=== PATIENT | female | born 1950 ===

== ENCOUNTER 2025-02-12 03:56 | Inpatient (IN) | payer MEDICARE, MEDICAID, SELFPAY ==
--- NOTE | ~2025-02-12 | XR_ITS ---
EXAMINATION: XR CHEST CLINICAL INFORMATION: SOB COMPARISON: None available. TECHNIQUE: Frontal view of the chest was obtained. FINDINGS: The lungs are well-expanded and clear of acute pneumonic process. There is dependent bibasilar atelectasis. Heart size and pulmonary vascularity is normal. No gross bony abnormality seen. XR/XR chest 1V IMPRESSION: There is bibasilar atelectasis. No acute process seen. Electronically signed by: Noah Greene MD 02/17/2025 09:34 AM EDT RP
[2025-02-12 04:18] VITALS: BMI 28.5
[2025-02-12 04:24] VITALS: BP 197/93; PULSE 87; RESP 16; TEMP 36.6; O2SAT 92
[2025-02-12] MEDS: OLANZapine 5 MG TABLET PO ×2 (06:13→21:42)
[2025-02-12] MEDS: Acetaminophen 325 MG TABLET 650 MG PO (06:14)
--- NOTE | 2025-02-12 06:46 | PC.NURSE ---
Addendum entered by Jerry Maddox RN 02/12/25 06:47: Patient is on 2 liter of oxygen secondary to COPD. Patient uses intermittently in her own terms. Original Note: Admission Note Monae De La Fuente, a 74 -year-old woman, was presented to [facility] ED from [facility] with chief complaint of making suicidal statement with plan to cut herself with razor blade triggered by her chronic headache and fear of having AIDS as she claims to be sexually active and plans to remain active until she reaches 81 years.? The patient has a medical and psychiatric history of hypothyroidism, COPD, GERD (gastroesophageal reflux disorder), HTN (hypertension), Breast Cancer , Schizoaffective disorder bipolar type, anxiety D/O, and Dementia. Monae arrived at our unit in a stretcher at 0410 on 02/12/25, on CV, with an admitting diagnosis of? schizoaffective disorder, bipolar type. She is full-code. The patient is alert and oriented to self only currently but follows direction well. The skin check revealed bilateral abdominal rash with minor slit. Med rec completed/pending provider?s approval, patient takes her meds whole with water willingly. Patients use walkers for very short distances but use wheelchairs to move around the unit. The patient needs assistance with ADL support but unable to assess the extent of support. Labs are unremarkable. UA negative. Utox negative. Serology negative. HIV screen negative. Monae refused to sign the treatment plan, safety tool, belonging sheet, and release paper. Contraband searched. Monae is on a 5 minute safety check.
[2025-02-12 08:23] LABS: Estimated Average Glucose 105 mg/dL; Hemoglobin A1C 135.0004 umol/L; Hemoglobin A1c % 5.3 % (<6.0); Total Hemoglobin (HGBA1C) 3979.3862 umol/L
[2025-02-12 08:30] VITALS: BP 152/80; PULSE 86; RESP 16; TEMP 36.4; O2SAT 94
[2025-02-12 08:34] LABS: Cholesterol 169 mg/dL (<200); HDL Cholesterol 56 mg/dL (>40); LDL Cholesterol Calculated 90 mg/dL (<100); Triglycerides 116 mg/dL (<150)
[2025-02-12 08:49] LABS: TSH reflex Free T4 5.11 uIU/mL (0.32-4.0)
[2025-02-12 09:08] LABS: Alanine Aminotransferase 17 U/L (0-31); Albumin Level 4.4 g/dL (3.5-5.0); Alkaline Phosphatase 77 U/L (39-117); Anion Gap 15 (12-20); Aspartate Amino Transferase 22 U/L (5-31); Bilirubin Total 0.3 mg/dL (0.0-1.0); Blood Urea Nitrogen 11 mg/dL (9-16); Calcium 10.4 mg/dL (8.4-10.2); Carbon Dioxide 25 mmol/L (22-29); Chloride 101 mmol/L (96-108); Creatinine Clr Calc Pharmacy 69.2; Estimated Glomerular Filt Rate > 60; Glucose Random 135 mg/dL (60-115); Potassium 4.2 mmol/L (3.3-5.1); Sodium 137 mmol/L (135-145); Total Protein 7.2 g/dL (6.5-8.0)
[2025-02-12 09:19] VITALS: BMI 28.5
--- NOTE | 2025-02-12 09:28 | P.HPPS_ITS ---
HPI Date of Service: 02/12/25 Chief Complaint: Schizoaffective disorder Sources of Information: patient interviewed, chart reviewed and crisis/core team assessment reviewed HPI Subjective Notes: Payan Warning and Conditional Voluntary Narrative: Ms. De La Fuente is a 74 year-old woman who was brought from [facility] to [facility] due to increased suicidal ideation with plan to cut caption writer with a razor. In the ED, pt had reported triggers for suicidal thought migraine pain and fear that she may have HIV. She had HIV test while in the ED which was non reactive. She has hx of self harm via cutting her wrist. Pertinent labs completed in the ED include CBC without leukocytosis, CMP without electrolytes abnormalities, BUN 12, Cr 0.62. UA negative for UTI. Utox was negative. Head CT from 05/2024 showed microvascular changes and atrophy. On the unit, pt presents with multiple somatic concerns. She reports she has migraines and this causes her to feel suicidal. She also reports she does hear sometimes a voice of a male that tells her to cut her wrist. She Also says she has these thoughts when she gets overwhelmed. She states she is allergic to Tylenol that she feels this medication causes her brain to swell and then she becomes suicidal. She reports she has had suicidal thoughts on and off for several years. She does report most of these thoughts are related to pain or other somatic complaints. She also reports at times she sees visions of comercials in her head. She reported suicidal thoughts but denied any plan or intent to harm herself. She reported poor sleep. This caption writer saw scars of multiple cuts to her wrist on the left side. No other parts of her body with cutting. Past Psychiatric History: Inpt: some in the past but pt reports she does not remember where or when. OP: she reports is PCP prescribing psych medications, Korey Sweeney Past medication trials: buspar, lithium, depakote, navane, seroquel, olanzapine, cymbalta. Hx of multiple cuts to left wrist. Medical Evaluation Reviewed: Yes [facility] Medical History (Updated 02/13/25 @ 16:19 by Alexus Hayes NP) Hypothyroidism COPD (chronic obstructive pulmonary disease) Dementia Breast cancer Family History: denies Social History: Pt reports she has 5 children, all live out of state and she hears from them once in a while. She reports she has 4 sisters and she is close to one of them. She reports she was born in [place], [place]. 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 Substance History: She reports she had hx of alcohol use but quit 20 years ago Trauma History: denies Diagnostics Vital Signs (24Hr): Vital Signs - 24 hr 02/12/25 04:24 Temperature 97.8 F Pulse Rate 87 Respiratory Rate 16 Blood Pressure 197/93 H Pulse Oximetry 92 Oxygen Delivery Method Nasal Cannula BMI result Body Mass Index 28.5 Labs 02/12/25 08:00 Labs: Laboratory Results - last 48 hr 02/12/25 08:00 Sodium 137 Potassium 4.2 Chloride 101 Carbon Dioxide 25 Anion Gap 15 BUN 11 Creatinine 0.72 Estim Creat Clear Calc 69.2 Estimated GFR > 60 Random Glucose 135 H Estimat Average Glucose 105 Hemoglobin A1c % 5.3 Calcium 10.4 H Total Bilirubin 0.3 AST 22 ALT 17 Alkaline Phosphatase 77 Total Protein 7.2 Albumin 4.4 Triglycerides 116 Cholesterol 169 LDL Cholesterol, Calc 90 HDL Cholesterol 56 TSH 5.11 H Meds/Allergies Meds Home Medications ?Medication ?Instructions ?Recorded ?Confirmed ?Type albuterol sulfate 90 mcg/actuation 2 puff inhalation Q4H PRN 02/12/25 02/12/25 History aerosol inhaler (Ventolin HFA) Shortness Of Breath Or Wheezing atorvastatin 40 mg tablet 40 mg PO DAILY 02/12/25 02/12/25 History buspirone 15 mg tablet 15 mg PO TID 02/12/25 02/12/25 History celecoxib 100 mg capsule 100 mg PO BID 02/12/25 02/12/25 History divalproex 500 mg tablet,delayed 500 mg PO BID 02/12/25 02/12/25 History release escitalopram oxalate 10 mg tablet 10 mg PO DAILY 02/12/25 02/12/25 History fluticasone propionate 50 2 spray intranasal BID 02/12/25 02/12/25 History mcg/actuation nasal spray,suspension gabapentin 300 mg capsule 300 mg PO TID 02/12/25 02/12/25 History letrozole 2.5 mg tablet 2.5 mg PO DAILY 02/12/25 02/12/25 History levothyroxine 50 mcg tablet 50 mcg PO DAILY 02/12/25 02/12/25 History mirabegron 25 mg tablet,extended 25 mg PO DAILY 02/12/25 02/12/25 History release 24 hr (Myrbetriq) olanzapine 10 mg tablet 10 mg PO BEDTIME 02/12/25 02/12/25 History pantoprazole 40 mg tablet,delayed 40 mg PO DAILY 02/12/25 02/12/25 History release pramipexole 0.125 mg tablet 0.125 mg PO DAILY 02/12/25 02/12/25 History quetiapine 25 mg tablet 50 mg PO TID PRN Anxiety 02/12/25 02/12/25 History rivaroxaban 10 mg tablet (Xarelto) 10 mg PO DAILY 02/12/25 02/12/25 History trazodone 100 mg tablet 200 mg PO BEDTIME PRN Insomnia 02/12/25 02/12/25 History Allergies Allergies Allergy/AdvReac Type Severity Reaction Status Date / Time morphine AdvReac Severe Rash Verified 02/12/25 04:00 codeine AdvReac Intermediate Rash Verified 02/12/25 04:01 theophylline AdvReac Intermediate Palpitation Verified 02/12/25 04:01 s thiothixene AdvReac Intermediate Unknown Verified 02/12/25 04:00 propoxyphene AdvReac Unknown Unknown Verified 02/12/25 03:59 Mental Status Exam Mental Status Exam Narrative: Appearance: wearing hospital gown, fair hygiene, in NAD Behavior: cooperative, friendly Psychomotor: resting tremors, more pronounced on right side Speech: clear, normal rate/rhythm/volume, spontaneous TP: somewhat disorganized at times TC: focused on pain and this causing suicidal thought Mood: anxious Affect: calmer, but somatically preoccupied SI: passive HI: none VH/AH: appears internally preoccupied Delusions: she is not fully forthcoming with extend of delusional content, but suspect a combination of somatic delusions triggering changes in mood and suicidality. Insight/judgment: impaired x 2. Memory/cog: alert, oriented to place, month, year and situation. Assessment & Plan Assessment & Plan (1) Schizoaffective disorder, bipolar type: Status: Acute Code(s): F25.0 - Schizoaffective disorder, bipolar type Plan Ms. De La Fuente is a 74 year-old woman who self presented to [facility] reporting increase depression and suicidal ideation with plan to cut her wrist with a razor. She reported suicidal thoughts in context of having pain related to migraine and fear that she may have HIV due to exposure more than 10 years ago. HIV test was non reactive. On the unit, pt presents somatically preoccupied with some degree of delusions such as when she reports feeling that tylenol is causing swelling of her brain which she then says turns into suicidal thoughts and urges to cut her wrist. She also reports hearing some voices and seeing images in white and black and sometimes commercials in her mind. She displays an asydentic thinking in that causal link between ideas is not related or is less logically connected. On the surface, may not seem as overt delusional process given that most of her concerns related to suicidal thoughts are somatic but as one follows her train of thought is more clear the disconnect. Pending collateral information from sister and outpatient providers. She does have resting tremor, suspect more susceptible to movement disorder side effects, especially with high potency antipsychotics. She is currently on olanzapine 10mg po qhs. We did discuss trial of rexulti 1mg po daily which patient was in agreement to try. We also discussed adding low dose diazepam 2mg po TID. PLAN 1. Admit to S1, CV, 15 minutes checks for safety 2. schedule diazepam 2mg po TID 3. may consider rexulti 1mg po qhs, lower trazodone to 100mg po qhs 4. obtain collateral information 5. aftercare planning. Patient educated on: diagnosis and medication risk/benefits Reason for continued inpatient stay Substantial Risk for: harm to self and inability to function Statement Statement: I have reviewed the history and physical and performed a pertinent examination on my patient. No changes have occurred unless specified. If the History and Physical was not performed prior to admission, the Hospitalist's service will be consulted for completing the admission physical. Time Spent With Patient Time: Total time managing care of this patient today ____ minutes.
--- NOTE | 2025-02-12 09:29 | HO.PM.IMCN ---
History of Present Illness Data of Consult Service Date: 02/12/25 Primary Care Provider: Unknown Physician HPI Reason for consult: Admission H&P Pt is a 74-year-old female with a PMH significant for COPD on 2L home O2 prn, hx of breast cancer, HLD, hypothyroidism, GERD, chronic back pain, dementia, anxiety, and schizoaffective disorder bipolar type?who is admitted to [facility] for increasing depression and anxiety with SI. Pt initially was brought to [facility] ED from [facility] after making suicidal statements with a plan to cut herself with a razor blade. Pt has particularly been preoccupied with fearing that she had AIDS as she has been sexually active. HIV testing in the ED negative. Medical consult for admission H&P. ?Pt seen and evaluated in her room where she appears anxious and feeling cold. Pt is noted to be laying on top of her blankets and apparently needs assistance in covering herself up. Pt has multiple complaints, including SOB, difficulty breathing, chronic back pain not alleviated by Celebrex, spastic bladder, and overall feeling uncomfortable. Overall pt appears preoccupied with her medications and claims she should be taking oxybutynin for her spastic bladder, but currently Of note, pt does appear much more calm after being covered up with blankets once interview and exam completed. Labs reviewed, significant for TSH elevated at 5.11. Initial vitals significant for hypertension of 197/93, satting at 92% on 2 L NC. Review of Systems Review of Systems: Negative except for that which is stated in the HPI. [facility] Medical History (Updated 02/12/25 @ 11:53 by JOAQUIM Tubbs) Hypothyroidism COPD (chronic obstructive pulmonary disease) Dementia Breast cancer Social History Household Members: None Housing: [facility] Do you presently have visiting nurse or other home services: No Comment: 5 minute checks Patient Tobacco Use Status: Former Tobacco user Tobacco use type: Cigarette Smoked in Last 30 Days: No Use of substances other than those prescribed or required for medical reasons: No Currently Displaying Signs/Symptoms of Drug Intoxication Withdrawal: No Have you been hit, kicked, punched, or otherwise hurt by someone within the past year? If so, by whom?: No Do you feel safe in your current relationship?: No Current Relationship Advance Directives: No Advance Directives Information Provided: Yes Do you have thoughts of harming others: None Do you have a plan to hurt others: No Plan Recently lost weight without trying: Unsure Nutrition Risks: No Nutritional Risk Patient : No : No Meds Allergies Allergy/AdvReac Type Severity Reaction Status Date / Time morphine AdvReac Severe Rash Verified 02/12/25 04:00 codeine AdvReac Intermediate Rash Verified 02/12/25 04:01 theophylline AdvReac Intermediate Palpitation Verified 02/12/25 04:01 s thiothixene AdvReac Intermediate Unknown Verified 02/12/25 04:00 propoxyphene AdvReac Unknown Unknown Verified 02/12/25 03:59 Active Medications: Current Medications Acetaminophen (Acetaminophen 325 Mg Tablet) 650 mg PO Q6H PRN PRN Reason: Headache/Pain, Scale 1-10 Last Admin: 02/12/25 06:14 Dose: 650 mg Al Hydroxide/Mg Hydroxide (Magnesium Hydrox/Alum Hydrox 30 Ml Oral.Susp) 30 ml PO Q6H PRN PRN Reason: Heartburn/Nausea Magnesium Hydroxide (Milk Of Magnesia 30 Ml Oral.Susp) 30 ml PO DAILY PRN PRN Reason: Constipation Nicotine (Nicotine 21 Mg Patch.Td24) 21 mg TRANSDERMA DAILY PRN PRN Reason: smoking cessation Nicotine Polacrilex (Nicotine Polacrilex 2 Mg Gum) 4 mg BUCCAL Q2H PRN PRN Reason: Nicotine Cravings Olanzapine (Olanzapine 5 Mg Tablet) 5 mg PO TID PRN PRN Reason: agitation Last Admin: 02/12/25 06:13 Dose: 5 mg Trazodone HCl (Trazodone Hcl 50 Mg Tablet) 50 mg PO BEDTIME MRX1 PRN PRN Reason: Insomnia Home Medications ?Medication ?Instructions ?Recorded ?Confirmed ?Last Taken ?Type albuterol sulfate 90 mcg/actuation 2 puff inhalation Q4H PRN 02/12/25 02/12/25 Unknown History aerosol inhaler (Ventolin HFA) Shortness Of Breath Or Wheezing atorvastatin 40 mg tablet 40 mg PO DAILY 02/12/25 02/12/25 Unknown History buspirone 15 mg tablet 15 mg PO TID 02/12/25 02/12/25 Unknown History celecoxib 100 mg capsule 100 mg PO BID 02/12/25 02/12/25 Unknown History divalproex 500 mg tablet,delayed 500 mg PO BID 02/12/25 02/12/25 Unknown History release escitalopram oxalate 10 mg tablet 10 mg PO DAILY 02/12/25 02/12/25 Unknown History fluticasone propionate 50 2 spray intranasal BID 02/12/25 02/12/25 Unknown History mcg/actuation nasal spray,suspension gabapentin 300 mg capsule 300 mg PO TID 02/12/25 02/12/25 Unknown History letrozole 2.5 mg tablet 2.5 mg PO DAILY 02/12/25 02/12/25 Unknown History levothyroxine 50 mcg tablet 50 mcg PO DAILY 02/12/25 02/12/25 Unknown History mirabegron 25 mg tablet,extended 25 mg PO DAILY 02/12/25 02/12/25 Unknown History release 24 hr (Myrbetriq) olanzapine 10 mg tablet 10 mg PO BEDTIME 02/12/25 02/12/25 Unknown History pantoprazole 40 mg tablet,delayed 40 mg PO DAILY 02/12/25 02/12/25 Unknown History release pramipexole 0.125 mg tablet 0.125 mg PO DAILY 02/12/25 02/12/25 Unknown History quetiapine 25 mg tablet 50 mg PO TID PRN Anxiety 02/12/25 02/12/25 Unknown History rivaroxaban 10 mg tablet (Xarelto) 10 mg PO DAILY 02/12/25 02/12/25 Unknown History trazodone 100 mg tablet 200 mg PO BEDTIME PRN Insomnia 02/12/25 02/12/25 Unknown History Physical Exam Vital Signs and Narrative: Vital Signs: Last Vital Signs Temp 97.8 F 02/12/25 04:24 Pulse 87 02/12/25 04:24 Resp 16 02/12/25 04:24 BP 197/93 H 02/12/25 04:24 Pulse Ox 92 02/12/25 04:24 O2 Del Method Nasal Cannula 02/12/25 04:24 BMI result Body Mass Index 28.5 General: AOx3, no acute distress Resp: CTA bilaterally CVS: S1, S2, RRR GI: +BS, NT, no distention Skin: Warm, dry Neuro: Cranial nerves II-XII grossly intact bilaterally. Motor grossly intact bilaterally Extremities: No edema Psych: Anxious though cooperative Results Labs 02/12/25 08:00 Labs: Laboratory Results - last 24 hr 02/12/25 08:00 Anion Gap 15 Estim Creat Clear Calc 69.2 Estimated GFR > 60 Random Glucose 135 H Estimat Average Glucose 105 Hemoglobin A1c % 5.3 Calcium 10.4 H Total Bilirubin 0.3 AST 22 ALT 17 Alkaline Phosphatase 77 Total Protein 7.2 Albumin 4.4 Triglycerides 116 Cholesterol 169 LDL Cholesterol, Calc 90 HDL Cholesterol 56 TSH 5.11 H Assessment and Plan (1) Medical clearance for psychiatric admission: Status: Acute Plan Pt is a 74-year-old female with a PMH significant for COPD on 2L home O2 prn, hx of breast cancer, HLD, hypothyroidism, GERD, chronic back pain, dementia, anxiety, and schizoaffective disorder bipolar type?who is admitted to [facility] for increasing depression and anxiety with SI. Pt initially was brought to [facility] ED from [facility] after making suicidal statements with a plan to cut herself with a razor blade. Pt has particularly been preoccupied with fearing that she had AIDS as she has been sexually active. HIV testing in the ED negative. Medical consult for admission H&P. Mood disorder Plan as per psychiatry HTN Initial BP 197/93, currently Also elevated at [facility] at 156/105 Currently not on any antihypertensives Will start on amlodipine 5 mg daily COPD Not in acute exacerbation Continue home inhalers Home O2 prn HLD Continue statin Chronic back pain Continue Celebrex, Tylenol, gabapentin Hypothyroidism Continue levothyroxine Hx of breast cancer Continue letrozole GERD Continue PPI Thank you for allowing us to participate in the care of this patient. Signing off at this time. Please re-consult if any acute complaints or issues arise.
[2025-02-12] MEDS: QUEtiapine Fumarate 50 MG TABLET PO (10:55)
[2025-02-12] MEDS: Magnesium Hydrox/Alum Hydrox 30 ML ORAL.SUSP PO (10:58)
[2025-02-12] MEDS: Escitalopram Oxalate 10 MG TABLET PO (10:59)
[2025-02-12] MEDS: Divalproex Sodium 500 MG TABLET.DR PO ×2 (10:59→21:41)
[2025-02-12 12:03] VITALS: BP 150/78; PULSE 86
[2025-02-12] MEDS: Celecoxib 100 MG CAPSULE PO ×2 (12:06→21:41)
[2025-02-12] MEDS: amLODIPine Besylate 5 MG TABLET PO (12:06)
[2025-02-12] MEDS: Pramipexole Di-HCL 0.125 MG TABLET PO (12:06)
[2025-02-12] MEDS: Rivaroxaban 10 MG TABLET PO (12:07)
[2025-02-12] MEDS: Letrozole 2.5 MG TABLET PO (12:07)
[2025-02-12] MEDS: SUMAtriptan succinate 50 MG TABLET PO ×2 (13:41→19:08)
[2025-02-12] MEDS: Gabapentin 300 MG CAPSULE PO ×2 (14:38→21:42)
[2025-02-12] MEDS: busPIRone HCl 5 MG TABLET 15 MG PO ×2 (14:38→21:40)
[2025-02-12 17:04] VITALS: O2SAT 94
[2025-02-12] MEDS: Albuterol Sulfate 90 MCG 8 GM INHALER 2 PUFF INHALE (17:30)
[2025-02-12 20:00] VITALS: BP 128/75; PULSE 86; RESP 16; TEMP 36.3; O2SAT 96
[2025-02-12] MEDS: traZODone HCL 100 MG TABLET PO (21:40)
[2025-02-12] MEDS: diazePAM 2 MG TABLET PO (21:41)
[2025-02-12] MEDS: OLANZapine 10 MG TABLET PO (21:42)
[2025-02-12] MEDS: Nystatin Powder 15 GM BOTTLE 1 APPL TOPICAL (21:42)
[2025-02-12] MEDS: Fluticasone Propionate Nasal 16 GM SPRAY 2 SPRAY NOSTRIL-B (21:42)
[2025-02-12] MEDS: Milk of Magnesia 30 ML ORAL.SUSP PO (21:48)
[2025-02-13] MEDS: Magnesium Hydrox/Alum Hydrox 30 ML ORAL.SUSP PO (04:41)
[2025-02-13] MEDS: Omeprazole 20 MG CAPSULE.DR PO (06:37)
[2025-02-13 08:05] LABS: Ammonia 59 umol/L (13-55)
[2025-02-13 08:09] LABS: Valproate 63.4 mcg/mL (50.0-100.0)
[2025-02-13] MEDS: Fluticasone Propionate Nasal 16 GM SPRAY 2 SPRAY NOSTRIL-B ×2 (10:53→20:03)
[2025-02-13 10:55] VITALS: BP 182/77; PULSE 81; RESP 16; TEMP 37.1; O2SAT 93
[2025-02-13] MEDS: amLODIPine Besylate 5 MG TABLET PO (11:00)
[2025-02-13] MEDS: Divalproex Sodium 500 MG TABLET.DR PO ×2 (11:00→20:03)
[2025-02-13] MEDS: Celecoxib 100 MG CAPSULE PO ×2 (11:01→20:03)
[2025-02-13] MEDS: Atorvastatin Calcium 40 MG TABLET PO (11:01)
[2025-02-13] MEDS: diazePAM 2 MG TABLET PO ×3 (11:01→20:03)
[2025-02-13] MEDS: Rivaroxaban 10 MG TABLET PO (11:01)
[2025-02-13] MEDS: Gabapentin 300 MG CAPSULE PO ×3 (11:02→20:03)
[2025-02-13] MEDS: busPIRone HCl 5 MG TABLET 15 MG PO ×3 (11:02→20:03)
[2025-02-13] MEDS: Mirabegron 25 MG TAB.ER.24H PO (11:02)
[2025-02-13] MEDS: Letrozole 2.5 MG TABLET PO (11:02)
[2025-02-13] MEDS: Escitalopram Oxalate 10 MG TABLET PO (11:03)
[2025-02-13] MEDS: Nystatin Powder 15 GM BOTTLE 1 APPL TOPICAL ×2 (11:03→20:03)
[2025-02-13] MEDS: Pramipexole Di-HCL 0.125 MG TABLET PO (11:06)
[2025-02-13] MEDS: SUMAtriptan succinate 50 MG TABLET PO (12:26)
[2025-02-13] MEDS: Milk of Magnesia 30 ML ORAL.SUSP PO (13:23)
[2025-02-13 16:12] VITALS: BP 103/60; PULSE 81
[2025-02-13] MEDS: Lidocaine 4 % Patch ADH..PATCH 2 PATCH TRANSDERMA (16:18)
[2025-02-13] MEDS: amLODIPine Besylate 2.5 MG TABLET PO (16:18)
--- NOTE | 2025-02-13 17:23 | HO.PSYCHPN ---
Subjective Subjective Date of Service: 02/13/25 Reason For Visit: Schizoaffective disorder Subjective Notes: Conditional Voluntary Interim History: Pt slept through the night. She reports she feels Putin's presence when she going to the bathroom, especially when she is having a BM. She suspects Putin likes her and she feels same way in return. She reports she hopes to have a sexual partner, but also reports she does not have one now. She reports thoughts of wanting to cut her wrist are less, she attributes this to not taking tylenol as she reports this medication is the one causing suicidal thoughts or voices telling her to cut her wrist, which she has done when this happens in the past. Review of Systems Review of Systems Negative except for that which is stated in the HPI. Mental Status Exam Mental Status Exam Narrative: Appearance: wearing hospital gown, fair hygiene, in NAD Behavior: cooperative, friendly Psychomotor: resting tremors, more pronounced on right side Speech: clear, normal rate/rhythm/volume, spontaneous TP: somewhat disorganized at times TC: focused on pain and this causing suicidal thought Mood: anxious Affect: calmer, but somatically preoccupied SI: passive HI: none VH/AH: appears internally preoccupied Delusions: she is not fully forthcoming with extend of delusional content, but suspect a combination of somatic delusions triggering changes in mood and suicidality. Insight/judgment: impaired x 2. Memory/cog: alert, oriented to place, month, year and situation. Diagnostics Vital Signs (24Hr): Vital Signs - 24 hr 02/12/25 20:00 02/13/25 10:55 02/13/25 16:12 Temperature 97.3 F 98.8 F Pulse Rate 86 81 81 Respiratory Rate 16 16 Blood Pressure 128/75 182/77 H 103/60 Pulse Oximetry 96 93 Oxygen Delivery Method Room Air Room Air BMI result Body Mass Index 28.5 Labs 02/12/25 08:00 Labs: Laboratory Results - last 48 hr 02/12/25 02/13/25 08:00 07:49 Sodium 137 Potassium 4.2 Chloride 101 Carbon Dioxide 25 Anion Gap 15 BUN 11 Creatinine 0.72 Estim Creat Clear Calc 69.2 Estimated GFR > 60 Random Glucose 135 H Estimat Average Glucose 105 Hemoglobin A1c % 5.3 Calcium 10.4 H Total Bilirubin 0.3 AST 22 ALT 17 Alkaline Phosphatase 77 Ammonia 59 H Total Protein 7.2 Albumin 4.4 Triglycerides 116 Cholesterol 169 LDL Cholesterol, Calc 90 HDL Cholesterol 56 TSH 5.11 H Free T4 0.90 Valproic Acid 63.4 Medications Medications Current Medications Acetaminophen (Acetaminophen 325 Mg Tablet) 650 mg PO Q6H PRN PRN Reason: Headache/Pain, Scale 1-10 Last Admin: 02/12/25 06:14 Dose: 650 mg Al Hydroxide/Mg Hydroxide (Magnesium Hydrox/Alum Hydrox 30 Ml Oral.Susp) 30 ml PO Q6H PRN PRN Reason: Heartburn/Nausea Last Admin: 02/13/25 04:41 Dose: 30 ml Albuterol Sulfate (Albuterol Sulfate 90 Mcg 8 Gm Inhaler) 2 puff INHALE Q4H PRN PRN Reason: Shortness Of Breath Or Wheezing Last Admin: 02/12/25 17:30 Dose: 2 puff Amlodipine Besylate (Amlodipine Besylate 5 Mg Tablet) 5 mg PO DAILY [facility]; Protocol Last Admin: 02/13/25 11:00 Dose: 5 mg Atorvastatin Calcium (Atorvastatin Calcium 40 Mg Tablet) 40 mg PO DAILY [facility] Last Admin: 02/13/25 11:01 Dose: 40 mg Buspirone HCl (Buspirone Hcl 5 Mg Tablet) 15 mg PO TID [facility] Last Admin: 02/13/25 14:49 Dose: 15 mg Celecoxib (Celecoxib 100 Mg Capsule) 100 mg PO BID [facility] Last Admin: 02/13/25 11:01 Dose: 100 mg Diazepam (Diazepam 2 Mg Tablet) 2 mg PO TID [facility] Last Admin: 02/13/25 14:49 Dose: 2 mg Divalproex Sodium (Divalproex Sodium 500 Mg Tablet.Dr) 500 mg PO BID [facility] Last Admin: 02/13/25 11:00 Dose: 500 mg Escitalopram Oxalate (Escitalopram Oxalate 10 Mg Tablet) 10 mg PO DAILY [facility] Last Admin: 02/13/25 11:03 Dose: 10 mg Fluticasone Propionate (Fluticasone Propionate Nasal 16 Gm [place]) 2 spray NOSTRIL-B BID [facility] Last Admin: 02/13/25 10:53 Dose: 2 spray Gabapentin (Gabapentin 300 Mg Capsule) 300 mg PO TID [facility] Last Admin: 02/13/25 14:49 Dose: 300 mg Letrozole (Letrozole 2.5 Mg Tablet) 2.5 mg PO DAILY [facility] Last Admin: 02/13/25 11:02 Dose: 2.5 mg Lidocaine (Lidocaine 4 % Patch Adh..Patch) 2 patch TRANSDERMA DAILY [facility]; Protocol Last Admin: 02/13/25 16:18 Dose: 2 patch Magnesium Hydroxide (Milk Of Magnesia 30 Ml Oral.Susp) 30 ml PO DAILY PRN PRN Reason: Constipation Last Admin: 02/13/25 13:23 Dose: 30 ml Mirabegron (Mirabegron 25 Mg Tab.Er.24h) 25 mg PO DAILY [facility] Last Admin: 02/13/25 11:02 Dose: 25 mg Nicotine (Nicotine 21 Mg Patch.Td24) 21 mg TRANSDERMA DAILY PRN PRN Reason: smoking cessation Nicotine Polacrilex (Nicotine Polacrilex 2 Mg Gum) 4 mg BUCCAL Q2H PRN PRN Reason: Nicotine Cravings Nystatin (Nystatin Powder 15 Gm Bottle) 1 appl TOPICAL BID [facility]; Protocol Last Admin: 02/13/25 11:03 Dose: 1 appl Olanzapine (Olanzapine 5 Mg Tablet) 5 mg PO TID PRN PRN Reason: agitation Last Admin: 02/12/25 21:42 Dose: 5 mg Olanzapine (Olanzapine 10 Mg Tablet) 10 mg PO BEDTIME [facility] Last Admin: 02/12/25 21:42 Dose: 10 mg Omeprazole (Omeprazole 20 Mg Capsule.Dr) 20 mg PO DAILY@0630 [facility] Last Admin: 02/13/25 06:37 Dose: 20 mg Rivaroxaban (Rivaroxaban 10 Mg Tablet) 10 mg PO DAILY [facility] Last Admin: 02/13/25 11:01 Dose: 10 mg Sumatriptan Succinate (Sumatriptan Succinate 50 Mg Tablet) 50 mg PO DAILY MRX1 PRN PRN Reason: Migraine Headache Last Admin: 02/13/25 12:26 Dose: 50 mg Trazodone HCl (Trazodone Hcl 100 Mg Tablet) 100 mg PO BEDTIME PRN PRN Reason: Insomnia Last Admin: 02/12/25 21:40 Dose: 100 mg Allergies Allergies Allergy/AdvReac Type Severity Reaction Status Date / Time morphine AdvReac Severe Rash Verified 02/12/25 04:00 codeine AdvReac Intermediate Rash Verified 02/12/25 04:01 theophylline AdvReac Intermediate Palpitation Verified 02/12/25 04:01 s thiothixene AdvReac Intermediate Unknown Verified 02/12/25 04:00 propoxyphene AdvReac Unknown Unknown Verified 02/12/25 03:59 Assessment & Plan Assessment & Plan (1) Schizoaffective disorder, bipolar type: Status: Acute Code(s): F25.0 - Schizoaffective disorder, bipolar type Plan Ms. De La Fuente is a 74 year-old woman who self presented to [facility] reporting increase depression and suicidal ideation with plan to cut her wrist with a razor. She reported suicidal thoughts in context of having pain related to migraine and fear that she may have HIV due to exposure more than 10 years ago. HIV test was non reactive. On the unit, pt presents somatically preoccupied with some degree of delusions such as when she reports feeling that tylenol is causing swelling of her brain which she then says turns into suicidal thoughts and urges to cut her wrist. She also reports hearing some voices and seeing images in white and black and sometimes commercials in her mind. She displays an asydentic thinking in that causal link between ideas is not related or is less logically connected. On the surface, may not seem as overt delusional process given that most of her concerns related to suicidal thoughts are somatic but as one follows her train of thought is more clear the disconnect. Pending collateral information from sister and outpatient providers. She does have resting tremor, suspect more susceptible to movement disorder side effects, especially with high potency antipsychotics. She is currently on olanzapine 10mg po qhs. We did discuss trial of rexulti 1mg po daily which patient was in agreement to try. We also discussed adding low dose diazepam 2mg po TID. PLAN 02/13 continue depakote 1000mg po BID. continue rexulti 1mg po daily, continue olanzapine, may switch to rexulti if effective. Reason for continued inpatient stay Substantial Risk for: inability to function Time Spent With Patient Time: Total time managing care of this patient today ____ minutes.
[2025-02-13 20:00] VITALS: BP 101/58; PULSE 79; RESP 18; TEMP 36.3; O2SAT 95
[2025-02-13] MEDS: OLANZapine 10 MG TABLET PO (20:03)
[2025-02-13] MEDS: traZODone HCL 100 MG TABLET PO (20:03)
[2025-02-13] MEDS: OLANZapine 5 MG TABLET PO (22:39)
[2025-02-14] MEDS: SUMAtriptan succinate 50 MG TABLET PO (03:16)
[2025-02-14] MEDS: Omeprazole 20 MG CAPSULE.DR PO (05:16)
[2025-02-14 08:00] VITALS: BP 109/65; PULSE 86; RESP 18; TEMP 36.6; O2SAT 92
[2025-02-14] MEDS: Lidocaine 4 % Patch ADH..PATCH 2 PATCH TRANSDERMA (08:48)
[2025-02-14] MEDS: busPIRone HCl 5 MG TABLET 15 MG PO ×3 (08:51→20:07)
[2025-02-14] MEDS: Divalproex Sodium 500 MG TABLET.DR PO ×2 (08:51→20:10)
[2025-02-14] MEDS: Gabapentin 300 MG CAPSULE PO ×3 (08:51→20:11)
[2025-02-14 08:52] VITALS: BP 109/65
[2025-02-14] MEDS: amLODIPine Besylate 5 MG TABLET PO (08:52)
[2025-02-14] MEDS: Atorvastatin Calcium 40 MG TABLET PO (08:52)
[2025-02-14] MEDS: diazePAM 2 MG TABLET PO ×3 (08:52→20:10)
[2025-02-14] MEDS: Letrozole 2.5 MG TABLET PO (08:53)
[2025-02-14] MEDS: Escitalopram Oxalate 10 MG TABLET PO (08:53)
[2025-02-14] MEDS: Rivaroxaban 10 MG TABLET PO (08:53)
[2025-02-14] MEDS: Celecoxib 100 MG CAPSULE PO (08:53)
[2025-02-14] MEDS: Fluticasone Propionate Nasal 16 GM SPRAY 2 SPRAY NOSTRIL-B ×2 (08:54→22:04)
[2025-02-14] MEDS: Mirabegron 25 MG TAB.ER.24H PO (08:54)
[2025-02-14] MEDS: Nystatin Powder 15 GM BOTTLE 1 APPL TOPICAL (08:55)
[2025-02-14] MEDS: Albuterol Sulfate 90 MCG 8 GM INHALER 2 PUFF INHALE (09:06)
[2025-02-14] MEDS: Brexpiprazole 1 MG TABLET PO (15:16)
[2025-02-14] MEDS: traMADoL HCL 50 MG TABLET 25 MG PO (16:35)
--- NOTE | 2025-02-14 18:28 | HO.PSYCHPN ---
Subjective Subjective Date of Service: 02/14/25 Reason For Visit: Schizoaffective disorder Subjective Notes: Conditional Voluntary Interim History: Pt slept through the night. She has number of somatic concerns and at times difficult to sort out whether these are delusional or happening but her explanation as to why they are happening is off. She reports feeling safe here. She reports thoughts of wanting to cut her wrist are less, she attributes this to not taking tylenol as she reports this medication is the one causing suicidal thoughts or voices telling her to cut her wrist, which she has done when this happens in the past. Review of Systems Review of Systems Negative except for that which is stated in the HPI. Mental Status Exam Mental Status Exam Narrative: Appearance: wearing hospital gown, fair hygiene, in NAD Behavior: cooperative, friendly Psychomotor: resting tremors, more pronounced on right side Speech: clear, normal rate/rhythm/volume, spontaneous TP: somewhat disorganized at times TC: focused on pain and this causing suicidal thought Mood: anxious Affect: calmer, but somatically preoccupied SI: passive HI: none VH/AH: appears internally preoccupied Delusions: she is not fully forthcoming with extend of delusional content, but suspect a combination of somatic delusions triggering changes in mood and suicidality. Insight/judgment: impaired x 2. Memory/cog: alert, oriented to place, month, year and situation. Diagnostics Vital Signs (24Hr): Vital Signs - 24 hr 02/13/25 20:00 02/14/25 08:00 02/14/25 08:52 Temperature 97.4 F 97.9 F Pulse Rate 79 86 Respiratory Rate 18 18 Blood Pressure 101/58 L 109/65 109/65 Pulse Oximetry 95 92 Oxygen Delivery Method Room Air Room Air BMI result Body Mass Index 28.5 Labs 02/12/25 08:00 Labs: Laboratory Results - last 48 hr 02/13/25 07:49 Ammonia 59 H Valproic Acid 63.4 Medications Medications Current Medications Acetaminophen (Acetaminophen 325 Mg Tablet) 650 mg PO Q6H PRN PRN Reason: Headache/Pain, Scale 1-10 Last Admin: 02/12/25 06:14 Dose: 650 mg Al Hydroxide/Mg Hydroxide (Magnesium Hydrox/Alum Hydrox 30 Ml Oral.Susp) 30 ml PO Q6H PRN PRN Reason: Heartburn/Nausea Last Admin: 02/13/25 04:41 Dose: 30 ml Albuterol Sulfate (Albuterol Sulfate 90 Mcg 8 Gm Inhaler) 2 puff INHALE Q4H PRN PRN Reason: Shortness Of Breath Or Wheezing Last Admin: 02/14/25 09:06 Dose: 2 puff Amlodipine Besylate (Amlodipine Besylate 5 Mg Tablet) 5 mg PO DAILY [facility]; Protocol Last Admin: 02/14/25 08:52 Dose: 5 mg Atorvastatin Calcium (Atorvastatin Calcium 40 Mg Tablet) 40 mg PO DAILY [facility] Last Admin: 02/14/25 08:52 Dose: 40 mg Brexpiprazole (Brexpiprazole 1 Mg Tablet) 1 mg PO DAILY [facility] Last Admin: 02/14/25 15:16 Dose: 1 mg Buspirone HCl (Buspirone Hcl 5 Mg Tablet) 15 mg PO TID [facility] Last Admin: 02/14/25 15:14 Dose: 15 mg Celecoxib (Celecoxib 100 Mg Capsule) 100 mg PO BID [facility] Last Admin: 02/14/25 08:53 Dose: 100 mg Diazepam (Diazepam 2 Mg Tablet) 2 mg PO TID [facility] Last Admin: 02/14/25 15:14 Dose: 2 mg Divalproex Sodium (Divalproex Sodium 500 Mg Tablet.Dr) 500 mg PO BID [facility] Last Admin: 02/14/25 08:51 Dose: 500 mg Escitalopram Oxalate (Escitalopram Oxalate 10 Mg Tablet) 10 mg PO DAILY [facility] Last Admin: 02/14/25 08:53 Dose: 10 mg Fluticasone Propionate (Fluticasone Propionate Nasal 16 Gm [place]) 2 spray NOSTRIL-B BID [facility] Last Admin: 02/14/25 08:54 Dose: 2 spray Gabapentin (Gabapentin 300 Mg Capsule) 300 mg PO TID [facility] Last Admin: 02/14/25 15:16 Dose: 300 mg Letrozole (Letrozole 2.5 Mg Tablet) 2.5 mg PO DAILY [facility] Last Admin: 02/14/25 08:53 Dose: 2.5 mg Lidocaine (Lidocaine 4 % Patch Adh..Patch) 2 patch TRANSDERMA DAILY [facility]; Protocol Last Admin: 02/14/25 08:48 Dose: 2 patch Magnesium Hydroxide (Milk Of Magnesia 30 Ml Oral.Susp) 30 ml PO DAILY PRN PRN Reason: Constipation Last Admin: 02/13/25 13:23 Dose: 30 ml Mirabegron (Mirabegron 25 Mg Tab.Er.24h) 25 mg PO DAILY [facility] Last Admin: 02/14/25 08:54 Dose: 25 mg Nicotine (Nicotine 21 Mg Patch.Td24) 21 mg TRANSDERMA DAILY PRN PRN Reason: smoking cessation Nicotine Polacrilex (Nicotine Polacrilex 2 Mg Gum) 4 mg BUCCAL Q2H PRN PRN Reason: Nicotine Cravings Nystatin (Nystatin Powder 15 Gm Bottle) 1 appl TOPICAL BID [facility]; Protocol Last Admin: 02/14/25 08:55 Dose: 1 appl Olanzapine (Olanzapine 5 Mg Tablet) 5 mg PO TID PRN PRN Reason: agitation Last Admin: 02/13/25 22:39 Dose: 5 mg Olanzapine (Olanzapine 10 Mg Tablet) 10 mg PO BEDTIME [facility] Last Admin: 02/13/25 20:03 Dose: 10 mg Omeprazole (Omeprazole 20 Mg Capsule.Dr) 20 mg PO DAILY@0630 [facility] Last Admin: 02/14/25 05:16 Dose: 20 mg Rivaroxaban (Rivaroxaban 10 Mg Tablet) 10 mg PO DAILY [facility] Last Admin: 02/14/25 08:53 Dose: 10 mg Senna/Docusate Sodium (Sennosides/Docusate Sodium Tablet) 1 tab PO BID [facility] Sumatriptan Succinate (Sumatriptan Succinate 50 Mg Tablet) 50 mg PO DAILY MRX1 PRN PRN Reason: Migraine Headache Last Admin: 02/14/25 03:16 Dose: 50 mg Trazodone HCl (Trazodone Hcl 100 Mg Tablet) 100 mg PO BEDTIME PRN PRN Reason: Insomnia Last Admin: 02/13/25 20:03 Dose: 100 mg Allergies Allergies Allergy/AdvReac Type Severity Reaction Status Date / Time morphine AdvReac Severe Rash Verified 02/12/25 04:00 codeine AdvReac Intermediate Rash Verified 02/12/25 04:01 theophylline AdvReac Intermediate Palpitation Verified 02/12/25 04:01 s thiothixene AdvReac Intermediate Unknown Verified 02/12/25 04:00 propoxyphene AdvReac Unknown Unknown Verified 02/12/25 03:59 Assessment & Plan Assessment & Plan (1) Schizoaffective disorder, bipolar type: Status: Acute Code(s): F25.0 - Schizoaffective disorder, bipolar type Plan Ms. De La Fuente is a 74 year-old woman who self presented to [facility] reporting increase depression and suicidal ideation with plan to cut her wrist with a razor. She reported suicidal thoughts in context of having pain related to migraine and fear that she may have HIV due to exposure more than 10 years ago. HIV test was non reactive. On the unit, pt presents somatically preoccupied with some degree of delusions such as when she reports feeling that tylenol is causing swelling of her brain which she then says turns into suicidal thoughts and urges to cut her wrist. She also reports hearing some voices and seeing images in white and black and sometimes commercials in her mind. She displays an asydentic thinking in that causal link between ideas is not related or is less logically connected. On the surface, may not seem as overt delusional process given that most of her concerns related to suicidal thoughts are somatic but as one follows her train of thought is more clear the disconnect. Pending collateral information from sister and outpatient providers. She does have resting tremor, suspect more susceptible to movement disorder side effects, especially with high potency antipsychotics. She is currently on olanzapine 10mg po qhs. We did discuss trial of rexulti 1mg po daily which patient was in agreement to try. We also discussed adding low dose diazepam 2mg po TID. PLAN 02/14 continue depakote 1000mg po BID. continue rexulti 1mg po daily, continue olanzapine, may switch to rexulti if effective. Reason for continued inpatient stay Substantial Risk for: inability to function Time Spent With Patient Time: Total time managing care of this patient today ____ minutes.
[2025-02-14 20:00] VITALS: BP 100/55; PULSE 78; RESP 24; TEMP 36.2; O2SAT 91
[2025-02-14] MEDS: Sennosides/Docusate Sodium TABLET 1 TAB PO (20:09)
[2025-02-14] MEDS: OLANZapine 10 MG TABLET PO (20:09)
[2025-02-14] MEDS: traZODone HCL 100 MG TABLET PO ×2 (20:17→23:13)
[2025-02-15] MEDS: Omeprazole 20 MG CAPSULE.DR PO (06:11)
[2025-02-15 08:00] VITALS: BP 123/59; PULSE 84; RESP 16; TEMP 36.4; O2SAT 90
[2025-02-15] MEDS: Albuterol Sulfate 90 MCG 8 GM INHALER 2 PUFF INHALE ×2 (08:12→20:16)
[2025-02-15] MEDS: Mirabegron 25 MG TAB.ER.24H PO (08:12)
[2025-02-15] MEDS: Gabapentin 300 MG CAPSULE PO ×3 (08:12→20:04)
[2025-02-15] MEDS: Sennosides/Docusate Sodium TABLET 1 TAB PO ×2 (08:13→20:04)
[2025-02-15] MEDS: Fluticasone Propionate Nasal 16 GM SPRAY 2 SPRAY NOSTRIL-B ×2 (08:13→20:04)
[2025-02-15] MEDS: busPIRone HCl 5 MG TABLET 15 MG PO ×3 (08:13→20:07)
[2025-02-15] MEDS: Divalproex Sodium 500 MG TABLET.DR PO ×2 (08:13→20:04)
[2025-02-15] MEDS: amLODIPine Besylate 5 MG TABLET PO (08:13)
[2025-02-15] MEDS: Rivaroxaban 10 MG TABLET PO (08:13)
[2025-02-15] MEDS: Celecoxib 100 MG CAPSULE PO (08:13)
[2025-02-15] MEDS: diazePAM 2 MG TABLET PO ×3 (08:13→20:03)
[2025-02-15] MEDS: Atorvastatin Calcium 40 MG TABLET PO (08:13)
[2025-02-15] MEDS: Brexpiprazole 1 MG TABLET PO (08:13)
[2025-02-15] MEDS: Letrozole 2.5 MG TABLET PO (08:13)
[2025-02-15] MEDS: Lidocaine 4 % Patch ADH..PATCH 2 PATCH TRANSDERMA (08:14)
[2025-02-15] MEDS: Escitalopram Oxalate 10 MG TABLET PO (08:14)
[2025-02-15] MEDS: SUMAtriptan succinate 50 MG TABLET PO (10:47)
[2025-02-15] MEDS: traMADoL HCL 50 MG TABLET PO (17:02)
[2025-02-15 20:00] VITALS: BP 102/58; PULSE 80; RESP 16; TEMP 36; O2SAT 93
[2025-02-15] MEDS: Nystatin Powder 15 GM BOTTLE 1 APPL TOPICAL (20:04)
[2025-02-15] MEDS: OLANZapine 10 MG TABLET PO (20:04)
[2025-02-15] MEDS: traZODone HCL 100 MG TABLET PO (20:05)
--- NOTE | 2025-02-15 22:25 | P.PNPSI_ITS ---
Subjective Subjective Date of Service: 02/15/25 Reason For Visit: Schizoaffective disorder Subjective Notes: Conditional Voluntary Interim History: Pt slept through the night. She has number of somatic concerns and at times difficult to sort out whether these are delusional or happening but her explanation as to why they are happening is off. She reports feeling safe here. She reports thoughts of wanting to cut her wrist are less, she attributes this to not taking tylenol as she reports this medication is the one causing suicidal thoughts or voices telling her to cut her wrist, which she has done when this happens in the past. Review of Systems Review of Systems Negative except for that which is stated in the HPI. Mental Status Exam Mental Status Exam Narrative: Appearance: wearing hospital gown, fair hygiene, in NAD Behavior: cooperative, friendly Psychomotor: resting tremors, more pronounced on right side Speech: clear, normal rate/rhythm/volume, spontaneous TP: somewhat disorganized at times TC: focused on pain and this causing suicidal thought Mood: anxious Affect: calmer, but somatically preoccupied SI: passive HI: none VH/AH: appears internally preoccupied Delusions: she is not fully forthcoming with extend of delusional content, but suspect a combination of somatic delusions triggering changes in mood and suicidality. Insight/judgment: impaired x 2. Memory/cog: alert, oriented to place, month, year and situation. Diagnostics Vital Signs (24Hr): Vital Signs - 24 hr 02/15/25 08:00 02/15/25 20:00 Temperature 97.5 F 96.8 F Pulse Rate 84 80 Respiratory Rate 16 16 Blood Pressure 123/59 L 102/58 L Pulse Oximetry 90 L 93 Oxygen Delivery Method Room Air Room Air BMI result Body Mass Index 28.5 Labs 02/17/25 09:16 02/17/25 09:16 Medications Medications Current Medications Acetaminophen (Acetaminophen 325 Mg Tablet) 650 mg PO Q6H PRN PRN Reason: Headache/Pain, Scale 1-10 Last Admin: 02/12/25 06:14 Dose: 650 mg Al Hydroxide/Mg Hydroxide (Magnesium Hydrox/Alum Hydrox 30 Ml Oral.Susp) 30 ml PO Q6H PRN PRN Reason: Heartburn/Nausea Last Admin: 02/13/25 04:41 Dose: 30 ml Albuterol Sulfate (Albuterol Sulfate 90 Mcg 8 Gm Inhaler) 2 puff INHALE Q4H PRN PRN Reason: Shortness Of Breath Or Wheezing Last Admin: 02/15/25 20:16 Dose: 2 puff Amlodipine Besylate (Amlodipine Besylate 5 Mg Tablet) 5 mg PO DAILY COUNTS INCLUDE 234 BEDS AT THE [facility]; Protocol Last Admin: 02/15/25 08:13 Dose: 5 mg Atorvastatin Calcium (Atorvastatin Calcium 40 Mg Tablet) 40 mg PO DAILY COUNTS INCLUDE 234 BEDS AT THE [facility] Last Admin: 02/15/25 08:13 Dose: 40 mg Brexpiprazole (Brexpiprazole 1 Mg Tablet) 1 mg PO DAILY COUNTS INCLUDE 234 BEDS AT THE [facility] Last Admin: 02/15/25 08:13 Dose: 1 mg Buspirone HCl (Buspirone Hcl 5 Mg Tablet) 15 mg PO TID COUNTS INCLUDE 234 BEDS AT THE [facility] Last Admin: 02/15/25 20:07 Dose: 15 mg Celecoxib (Celecoxib 100 Mg Capsule) 100 mg PO BID COUNTS INCLUDE 234 BEDS AT THE [facility] Last Admin: 02/15/25 20:03 Dose: Not Given Diazepam (Diazepam 2 Mg Tablet) 2 mg PO TID COUNTS INCLUDE 234 BEDS AT THE [facility] Last Admin: 02/15/25 20:03 Dose: 2 mg Divalproex Sodium (Divalproex Sodium 500 Mg Tablet.Dr) 500 mg PO BID COUNTS INCLUDE 234 BEDS AT THE [facility] Last Admin: 02/15/25 20:04 Dose: 500 mg Escitalopram Oxalate (Escitalopram Oxalate 10 Mg Tablet) 10 mg PO DAILY COUNTS INCLUDE 234 BEDS AT THE [facility] Last Admin: 02/15/25 08:14 Dose: 10 mg Fluticasone Propionate (Fluticasone Propionate Nasal 16 Gm [place]) 2 spray NOSTRIL-B BID COUNTS INCLUDE 234 BEDS AT THE [facility] Last Admin: 02/15/25 20:04 Dose: 2 spray Gabapentin (Gabapentin 300 Mg Capsule) 300 mg PO TID COUNTS INCLUDE 234 BEDS AT THE [facility] Last Admin: 02/15/25 20:04 Dose: 300 mg Letrozole (Letrozole 2.5 Mg Tablet) 2.5 mg PO DAILY COUNTS INCLUDE 234 BEDS AT THE [facility] Last Admin: 02/15/25 08:13 Dose: 2.5 mg Lidocaine (Lidocaine 4 % Patch Adh..Patch) 2 patch TRANSDERMA DAILY COUNTS INCLUDE 234 BEDS AT THE [facility]; Protocol Last Admin: 02/15/25 08:14 Dose: 2 patch Magnesium Hydroxide (Milk Of Magnesia 30 Ml Oral.Susp) 30 ml PO DAILY PRN PRN Reason: Constipation Last Admin: 02/13/25 13:23 Dose: 30 ml Mirabegron (Mirabegron 25 Mg Tab.Er.24h) 25 mg PO DAILY COUNTS INCLUDE 234 BEDS AT THE [facility] Last Admin: 02/15/25 08:12 Dose: 25 mg Nicotine (Nicotine 21 Mg Patch.Td24) 21 mg TRANSDERMA DAILY PRN PRN Reason: smoking cessation Nicotine Polacrilex (Nicotine Polacrilex 2 Mg Gum) 4 mg BUCCAL Q2H PRN PRN Reason: Nicotine Cravings Nystatin (Nystatin Powder 15 Gm Bottle) 1 appl TOPICAL BID COUNTS INCLUDE 234 BEDS AT THE [facility]; Protocol Last Admin: 02/15/25 20:04 Dose: 1 appl Olanzapine (Olanzapine 10 Mg Tablet) 10 mg PO BEDTIME COUNTS INCLUDE 234 BEDS AT THE [facility] Last Admin: 02/15/25 20:04 Dose: 10 mg Olanzapine (Olanzapine 5 Mg Tablet) 5 mg PO TID PRN PRN Reason: agitation/severe anxiety Omeprazole (Omeprazole 20 Mg Capsule.Dr) 20 mg PO DAILY@0630 COUNTS INCLUDE 234 BEDS AT THE [facility] Last Admin: 02/15/25 06:11 Dose: 20 mg Rivaroxaban (Rivaroxaban 10 Mg Tablet) 10 mg PO DAILY COUNTS INCLUDE 234 BEDS AT THE [facility] Last Admin: 02/15/25 08:13 Dose: 10 mg Senna/Docusate Sodium (Sennosides/Docusate Sodium Tablet) 1 tab PO BID COUNTS INCLUDE 234 BEDS AT THE [facility] Last Admin: 02/15/25 20:04 Dose: 1 tab Sumatriptan Succinate (Sumatriptan Succinate 50 Mg Tablet) 50 mg PO DAILY MRX1 PRN PRN Reason: Migraine Headache Last Admin: 02/15/25 10:47 Dose: 50 mg Trazodone HCl (Trazodone Hcl 100 Mg Tablet) 100 mg PO BEDTIME PRN PRN Reason: Insomnia Last Admin: 02/15/25 20:05 Dose: 100 mg Trazodone HCl (Trazodone Hcl 100 Mg Tablet) 100 mg PO ONCE PRN PRN Reason: Insomnia Last Admin: 02/14/25 23:13 Dose: 100 mg Allergies Allergies Allergy/AdvReac Type Severity Reaction Status Date / Time morphine AdvReac Severe Rash Verified 02/12/25 04:00 codeine AdvReac Intermediate Rash Verified 02/12/25 04:01 theophylline AdvReac Intermediate Palpitation Verified 02/12/25 04:01 s thiothixene AdvReac Intermediate Unknown Verified 02/12/25 04:00 propoxyphene AdvReac Unknown Unknown Verified 02/12/25 03:59 Assessment & Plan Assessment & Plan (1) Schizoaffective disorder, bipolar type: Status: Acute Code(s): F25.0 - Schizoaffective disorder, bipolar type Plan Ms. De La Fuente is a 74 year-old woman who self presented to [facility] reporting increase depression and suicidal ideation with plan to cut her wrist with a razor. She reported suicidal thoughts in context of having pain related to migraine and fear that she may have HIV due to exposure more than 10 years ago. HIV test was non reactive. On the unit, pt presents somatically preoccupied with some degree of delusions such as when she reports feeling that tylenol is causing swelling of her brain which she then says turns into suicidal thoughts and urges to cut her wrist. She also reports hearing some voices and seeing images in white and black and sometimes commercials in her mind. She displays an asydentic thinking in that causal link between ideas is not related or is less logically connected. On the surface, may not seem as overt delusional process given that most of her concerns related to suicidal thoughts are somatic but as one follows her train of thought is more clear the disconnect. Pending collateral information from sister and outpatient providers. She does have resting tremor, suspect more susceptible to movement disorder side effects, especially with high potency antipsychotics. She is currently on olanzapine 10mg po qhs. We did discuss trial of rexulti 1mg po daily which patient was in agreement to try. We also discussed adding low dose diazepam 2mg po TID. PLAN 02/14 continue depakote 1000mg po BID. continue rexulti 1mg po daily, continue olanzapine, may switch to rexulti if effective. 02/15 continue tx. Reason for continued inpatient stay Substantial Risk for: inability to function Time Spent With Patient Time: Total time managing care of this patient today ____ minutes.
[2025-02-16] MEDS: Omeprazole 20 MG CAPSULE.DR PO (05:32)
[2025-02-16 08:00] VITALS: BP 117/57; PULSE 86; RESP 18; TEMP 36; O2SAT 92
[2025-02-16 08:26] VITALS: BP 165/89
[2025-02-16] MEDS: busPIRone HCl 5 MG TABLET 15 MG PO ×3 (08:26→19:56)
[2025-02-16] MEDS: amLODIPine Besylate 5 MG TABLET PO (08:26)
[2025-02-16] MEDS: Divalproex Sodium 500 MG TABLET.DR PO ×2 (08:26→19:55)
[2025-02-16] MEDS: Letrozole 2.5 MG TABLET PO (08:26)
[2025-02-16] MEDS: Atorvastatin Calcium 40 MG TABLET PO (08:27)
[2025-02-16] MEDS: Sennosides/Docusate Sodium TABLET 1 TAB PO ×2 (08:27→19:57)
[2025-02-16] MEDS: Rivaroxaban 10 MG TABLET PO (08:27)
[2025-02-16] MEDS: Escitalopram Oxalate 10 MG TABLET PO (08:27)
[2025-02-16] MEDS: Celecoxib 100 MG CAPSULE PO ×2 (08:27→19:56)
[2025-02-16] MEDS: Brexpiprazole 1 MG TABLET PO (08:27)
[2025-02-16] MEDS: diazePAM 2 MG TABLET PO ×3 (08:27→19:58)
[2025-02-16] MEDS: Mirabegron 25 MG TAB.ER.24H PO (08:27)
[2025-02-16] MEDS: Gabapentin 300 MG CAPSULE PO ×3 (08:27→19:56)
[2025-02-16] MEDS: Fluticasone Propionate Nasal 16 GM SPRAY 2 SPRAY NOSTRIL-B ×2 (08:28→19:55)
[2025-02-16] MEDS: Lidocaine 4 % Patch ADH..PATCH 2 PATCH TRANSDERMA (08:28)
[2025-02-16] MEDS: Nystatin Powder 15 GM BOTTLE 1 APPL TOPICAL ×2 (08:29→19:55)
[2025-02-16] MEDS: traMADoL HCL 50 MG TABLET PO ×2 (11:48→19:58)
[2025-02-16 12:38] LABS: Ammonia 59 umol/L (13-55)
[2025-02-16] MEDS: Lactulose 20 GM/30 ML SOLUTION PO (16:09)
--- NOTE | 2025-02-16 18:51 | PC.NURSE ---
New order for Lactulose 20mg daily for Ammonia of 59; med given about 16:00. Pt had normal consistency BM after supper.
--- NOTE | 2025-02-16 19:45 | HO.PSYCHPN ---
Subjective Subjective Date of Service: 02/16/25 Reason For Visit: Schizoaffective disorder Subjective Notes: Conditional Voluntary Interim History: Pt slept through the night. she reports feeling well. She reports she does not have suicidal ideation nor thoughts of wanting to hurt herself. She reports she still see Putin or feels him when she is in the bathroom. She reports she feels safe here on the unit. No behavioral concerns but she is somatically preoccupied. Review of Systems Review of Systems Negative except for that which is stated in the HPI. Mental Status Exam Mental Status Exam Narrative: Appearance: wearing hospital gown, fair hygiene, in NAD Behavior: cooperative, friendly Psychomotor: resting tremors, more pronounced on right side Speech: clear, normal rate/rhythm/volume, spontaneous TP: somewhat disorganized at times TC: focused on pain and this causing suicidal thought Mood: anxious Affect: calmer, but somatically preoccupied SI: passive HI: none VH/AH: appears internally preoccupied Delusions: she is not fully forthcoming with extend of delusional content, but suspect a combination of somatic delusions triggering changes in mood and suicidality. Insight/judgment: impaired x 2. Memory/cog: alert, oriented to place, month, year and situation. Diagnostics Vital Signs (24Hr): Vital Signs - 24 hr 02/15/25 20:00 02/16/25 08:00 02/16/25 08:26 Temperature 96.8 F 96.8 F Pulse Rate 80 86 Respiratory Rate 16 18 Blood Pressure 102/58 L 117/57 L 165/89 H Pulse Oximetry 93 92 Oxygen Delivery Method Room Air Room Air BMI result Body Mass Index 28.5 Labs 02/17/25 09:16 02/17/25 09:16 Labs: Laboratory Results - last 48 hr 02/16/25 12:25 Ammonia 59 H Medications Medications Current Medications Acetaminophen (Acetaminophen 325 Mg Tablet) 650 mg PO Q6H PRN PRN Reason: Headache/Pain, Scale 1-10 Last Admin: 02/12/25 06:14 Dose: 650 mg Al Hydroxide/Mg Hydroxide (Magnesium Hydrox/Alum Hydrox 30 Ml Oral.Susp) 30 ml PO Q6H PRN PRN Reason: Heartburn/Nausea Last Admin: 02/13/25 04:41 Dose: 30 ml Albuterol Sulfate (Albuterol Sulfate 90 Mcg 8 Gm Inhaler) 2 puff INHALE Q4H PRN PRN Reason: Shortness Of Breath Or Wheezing Last Admin: 02/15/25 20:16 Dose: 2 puff Amlodipine Besylate (Amlodipine Besylate 5 Mg Tablet) 5 mg PO DAILY [facility]; Protocol Last Admin: 02/16/25 08:26 Dose: 5 mg Atorvastatin Calcium (Atorvastatin Calcium 40 Mg Tablet) 40 mg PO DAILY [facility] Last Admin: 02/16/25 08:27 Dose: 40 mg Brexpiprazole (Brexpiprazole 1 Mg Tablet) 1 mg PO DAILY [facility] Last Admin: 02/16/25 08:27 Dose: 1 mg Buspirone HCl (Buspirone Hcl 5 Mg Tablet) 15 mg PO TID [facility] Last Admin: 02/16/25 14:50 Dose: 15 mg Celecoxib (Celecoxib 100 Mg Capsule) 100 mg PO BID [facility] Last Admin: 02/16/25 08:27 Dose: 100 mg Diazepam (Diazepam 2 Mg Tablet) 2 mg PO TID [facility] Last Admin: 02/16/25 14:50 Dose: 2 mg Divalproex Sodium (Divalproex Sodium 500 Mg Tablet.Dr) 500 mg PO BID [facility] Last Admin: 02/16/25 08:26 Dose: 500 mg Escitalopram Oxalate (Escitalopram Oxalate 10 Mg Tablet) 10 mg PO DAILY [facility] Last Admin: 02/16/25 08:27 Dose: 10 mg Fluticasone Propionate (Fluticasone Propionate Nasal 16 Gm [place]) 2 spray NOSTRIL-B BID [facility] Last Admin: 02/16/25 08:28 Dose: 2 spray Gabapentin (Gabapentin 300 Mg Capsule) 300 mg PO TID [facility] Last Admin: 02/16/25 14:50 Dose: 300 mg Lactulose (Lactulose 20 Gm/30 Ml Solution) 20 gm PO DAILY [facility] Letrozole (Letrozole 2.5 Mg Tablet) 2.5 mg PO DAILY [facility] Last Admin: 02/16/25 08:26 Dose: 2.5 mg Lidocaine (Lidocaine 4 % Patch Adh..Patch) 2 patch TRANSDERMA DAILY [facility]; Protocol Last Admin: 02/16/25 08:28 Dose: 2 patch Magnesium Hydroxide (Milk Of Magnesia 30 Ml Oral.Susp) 30 ml PO DAILY PRN PRN Reason: Constipation Last Admin: 02/13/25 13:23 Dose: 30 ml Mirabegron (Mirabegron 25 Mg Tab.Er.24h) 25 mg PO DAILY [facility] Last Admin: 02/16/25 08:27 Dose: 25 mg Nicotine (Nicotine 21 Mg Patch.Td24) 21 mg TRANSDERMA DAILY PRN PRN Reason: smoking cessation Nicotine Polacrilex (Nicotine Polacrilex 2 Mg Gum) 4 mg BUCCAL Q2H PRN PRN Reason: Nicotine Cravings Nystatin (Nystatin Powder 15 Gm Bottle) 1 appl TOPICAL BID [facility]; Protocol Last Admin: 02/16/25 08:29 Dose: 1 appl Olanzapine (Olanzapine 10 Mg Tablet) 10 mg PO BEDTIME [facility] Last Admin: 02/15/25 20:04 Dose: 10 mg Olanzapine (Olanzapine 5 Mg Tablet) 5 mg PO TID PRN PRN Reason: agitation/severe anxiety Omeprazole (Omeprazole 20 Mg Capsule.Dr) 20 mg PO DAILY@0630 [facility] Last Admin: 02/16/25 05:32 Dose: 20 mg Rivaroxaban (Rivaroxaban 10 Mg Tablet) 10 mg PO DAILY [facility] Last Admin: 02/16/25 08:27 Dose: 10 mg Senna/Docusate Sodium (Sennosides/Docusate Sodium Tablet) 1 tab PO BID [facility] Last Admin: 02/16/25 08:27 Dose: 1 tab Sumatriptan Succinate (Sumatriptan Succinate 50 Mg Tablet) 50 mg PO DAILY MRX1 PRN PRN Reason: Migraine Headache Last Admin: 02/15/25 10:47 Dose: 50 mg Tramadol HCl (Tramadol Hcl 50 Mg Tablet) 50 mg PO BID PRN PRN Reason: Pain, Severe (Pain Scale 7-10) Last Admin: 02/16/25 11:48 Dose: 50 mg Trazodone HCl (Trazodone Hcl 100 Mg Tablet) 100 mg PO ONCE PRN PRN Reason: Insomnia Last Admin: 02/14/25 23:13 Dose: 100 mg Trazodone HCl (Trazodone Hcl 100 Mg Tablet) 200 mg PO BEDTIME PRN PRN Reason: Insomnia Allergies Allergies Allergy/AdvReac Type Severity Reaction Status Date / Time morphine AdvReac Severe Rash Verified 02/12/25 04:00 codeine AdvReac Intermediate Rash Verified 02/12/25 04:01 theophylline AdvReac Intermediate Palpitation Verified 02/12/25 04:01 s thiothixene AdvReac Intermediate Unknown Verified 02/12/25 04:00 propoxyphene AdvReac Unknown Unknown Verified 02/12/25 03:59 Assessment & Plan Assessment & Plan (1) Schizoaffective disorder, bipolar type: Status: Acute Code(s): F25.0 - Schizoaffective disorder, bipolar type Plan Ms. De La Fuente is a 74 year-old woman who self presented to [facility] reporting increase depression and suicidal ideation with plan to cut her wrist with a razor. She reported suicidal thoughts in context of having pain related to migraine and fear that she may have HIV due to exposure more than 10 years ago. HIV test was non reactive. On the unit, pt presents somatically preoccupied with some degree of delusions such as when she reports feeling that tylenol is causing swelling of her brain which she then says turns into suicidal thoughts and urges to cut her wrist. She also reports hearing some voices and seeing images in white and black and sometimes commercials in her mind. She displays an asydentic thinking in that causal link between ideas is not related or is less logically connected. On the surface, may not seem as overt delusional process given that most of her concerns related to suicidal thoughts are somatic but as one follows her train of thought is more clear the disconnect. Pending collateral information from sister and outpatient providers. She does have resting tremor, suspect more susceptible to movement disorder side effects, especially with high potency antipsychotics. She is currently on olanzapine 10mg po qhs. We did discuss trial of rexulti 1mg po daily which patient was in agreement to try. We also discussed adding low dose diazepam 2mg po TID. PLAN 02/14 continue depakote 1000mg po BID. continue rexulti 1mg po daily, continue olanzapine, may switch to rexulti if effective. 02/15 continue tx 02/16 continue tx. Reason for continued inpatient stay Substantial Risk for: inability to function Time Spent With Patient Time: Total time managing care of this patient today ____ minutes.
[2025-02-16] MEDS: OLANZapine 10 MG TABLET PO (19:57)
[2025-02-16 20:00] VITALS: BP 119/60; PULSE 75; RESP 18; TEMP 36.5; O2SAT 91
[2025-02-16] MEDS: traZODone HCL 100 MG TABLET 200 MG PO (20:04)
[2025-02-17] MEDS: Omeprazole 20 MG CAPSULE.DR PO (05:40)
[2025-02-17 08:00] VITALS: BP 107/73; PULSE 78; RESP 15; TEMP 36.8; O2SAT 86
--- NOTE | 2025-02-17 08:25 | PC.NURSE ---
Pt O2 sat was 86% during morning medication pass. Albuterol given which brought O2 up to87%. O2 1.5L placed on pt. O2 sat now 90%-91%. Alexus Langford NP notified via [employer].
[2025-02-17] MEDS: Lidocaine 4 % Patch ADH..PATCH 2 PATCH TRANSDERMA (08:27)
[2025-02-17] MEDS: Albuterol Sulfate 90 MCG 8 GM INHALER 2 PUFF INHALE (08:27)
[2025-02-17] MEDS: Fluticasone Propionate Nasal 16 GM SPRAY 2 SPRAY NOSTRIL-B ×2 (08:28→20:36)
[2025-02-17] MEDS: Lactulose 20 GM/30 ML SOLUTION PO (08:28)
[2025-02-17 08:29] VITALS: BP 107/73
[2025-02-17] MEDS: amLODIPine Besylate 5 MG TABLET PO (08:29)
[2025-02-17] MEDS: Atorvastatin Calcium 40 MG TABLET PO (08:33)
[2025-02-17] MEDS: Letrozole 2.5 MG TABLET PO (08:33)
[2025-02-17] MEDS: Brexpiprazole 1 MG TABLET PO (08:33)
[2025-02-17] MEDS: Divalproex Sodium 500 MG TABLET.DR PO ×2 (08:33→20:37)
[2025-02-17] MEDS: Escitalopram Oxalate 10 MG TABLET PO (08:33)
[2025-02-17] MEDS: Celecoxib 100 MG CAPSULE PO ×2 (08:33→20:38)
[2025-02-17] MEDS: Mirabegron 25 MG TAB.ER.24H PO (08:33)
[2025-02-17] MEDS: Sennosides/Docusate Sodium TABLET 1 TAB PO ×2 (08:33→20:37)
[2025-02-17] MEDS: Gabapentin 300 MG CAPSULE PO ×3 (08:33→20:36)
[2025-02-17] MEDS: diazePAM 2 MG TABLET PO ×3 (08:33→20:36)
[2025-02-17] MEDS: busPIRone HCl 5 MG TABLET 15 MG PO ×3 (08:33→20:38)
[2025-02-17] MEDS: Rivaroxaban 10 MG TABLET PO (08:33)
[2025-02-17] MEDS: traMADoL HCL 50 MG TABLET PO ×2 (08:42→20:38)
--- NOTE | 2025-02-17 08:43 | PC.NURSE ---
Pt O2 88% on 3L. O2 turned up to 4L and reported to Alexus Langford NP.
[2025-02-17 09:26] LABS: MANUAL DIFF FLAG NO
[2025-02-17 09:42] LABS: Basophils Percent Auto 0.5 % (0-2); Eosinophils Absolute Auto 0.3 X10*3/uL (0.0-0.4); Eosinophils Percent Auto 4.2 % (0-4); Hematocrit 39.2 % (37.0-47.0); Hemoglobin 13.2 g/dl (12.0-16.0); Imm Gran Abs Auto 0.02 X10*3/uL (0.00-0.03); Imm Gran Pct Auto 0.3 % (0.0-0.4); Lymphocytes Absolute Auto 1.8 X10*3/uL (1.2-4.9); Lymphocytes Percent Auto 30.1 % (20-40); Mean Corpuscular HGB Conc 33.7 g/dl (31.0-35.0); Mean Corpuscular Hemoglobin 30.9 pg (27.0-33.0); Mean Corpuscular Volume 91.8 fL (80.0-98.0); Mean Platelet Volume 9.7 fL (9.4-12.3); Monocytes Absolute Auto 0.5 X10*3/uL (0.1-1.2); Monocytes Percent Auto 8.7 % (2-11); Neutrophils Absolute Auto 3.4 x10*3/uL (2.0-8.3); Neutrophils Percent Auto 56.2 % (45-73); Platelet Count 228 X10*3/uL (160-400); Red Blood Count 4.27 X10*6/uL (4.20-5.50); Red Cell Distribution Width 12.9 % (11.0-16.0); White Blood Count 6.1 X10*3/uL (4.8-10.8)
[2025-02-17 09:48] LABS: D Dimer High Sensitivity 211 NG/ML
[2025-02-17 09:51] LABS: Alanine Aminotransferase 18 U/L (0-31); Albumin Level 4.1 g/dL (3.5-5.0); Alkaline Phosphatase 69 U/L (39-117); Anion Gap 13 (12-20); Aspartate Amino Transferase 24 U/L (5-31); Bilirubin Total 0.2 mg/dL (0.0-1.0); Blood Urea Nitrogen 15 mg/dL (9-16); Calcium 9.7 mg/dL (8.4-10.2); Carbon Dioxide 27 mmol/L (22-29); Chloride 104 mmol/L (96-108); Creatinine Clr Calc Pharmacy 57.2; Estimated Glomerular Filt Rate > 60; Glucose Random 115 mg/dL (60-115); Potassium 3.9 mmol/L (3.3-5.1); Sodium 140 mmol/L (135-145); Total Protein 6.4 g/dL (6.5-8.0)
[2025-02-17 10:03] VITALS: O2SAT 93
[2025-02-17 10:41] LABS: Adenovirus PCR Not Detected (Not Detect.); Bordetella parapertussis PCR Not Detected (Not Detect.); Bordetella pertussis PCR Not Detected (Not Detect.); Chlamydia pneumoniae PCR Not Detected (Not Detect.); Coronavirus 229E PCR Not Detected (Not Detect.); Coronavirus HKU1 PCR Not Detected (Not Detect.); Coronavirus NL63 PCR Not Detected (Not Detect.); Coronavirus OC43 PCR Not Detected (Not Detect.); Human metapneumovirus PCR Not Detected (Not Detect.); Influenza A PCR Not Detected (Not Detect.); Influenza B PCR Not Detected (Not Detect.); Mycoplasma pneumoniae PCR Not Detected (Not Detect.); Parainfluenza 1 PCR Not Detected (Not Detect.); Parainfluenza 2 PCR Not Detected (Not Detect.); Parainfluenza 3 PCR Not Detected (Not Detect.); Parainfluenza 4 PCR Not Detected (Not Detect.); RSV PCR Not Detected (Not Detect.); Rhino/Enterovirus PCR Not Detected (Not Detect.)
[2025-02-17 10:43] LABS: Influenza A H1 PCR Not Detected (Not Detect.); Influenza A H1-2009 PCR Not Detected (Not Detect.); Influenza A H3 PCR Not Detected (Not Detect.); SARS-CoV-2 PCR Not Detected (Not Detect.)
--- NOTE | 2025-02-17 11:30 | P.PNPSI_ITS ---
Subjective Subjective Date of Service: 02/17/25 Reason For Visit: Schizoaffective disorder Subjective Notes: Conditional Voluntary Interim History: Pt slept through the night. She was desaturating to upper 80's needed 2L of oxygen but continue to desaturate, o2 increased to 4L, maintain between 90-93% chest XR, cbc, cmp orders, as well as BNP- seen by hospitalist. No s/s of infection nor need for prednisone. Pt continues to denied suicidal ideation. She does continue to report that she feels Putin is watching her, whic she reports she likes. Some sexualized behaviors. ammonia, went up today to 68, suspect this is due to depakote, which may consider switching to carbamazepine. Review of Systems Review of Systems Negative except for that which is stated in the HPI. Yes all other systems are reviewed and are negative Mental Status Exam Mental Status Exam Narrative: Appearance: wearing hospital gown, fair hygiene, in NAD Behavior: cooperative, friendly Psychomotor: resting tremors, more pronounced on right side Speech: clear, normal rate/rhythm/volume, spontaneous TP: somewhat disorganized at times TC: focused on pain and this causing suicidal thought Mood: anxious Affect: calmer, but somatically preoccupied SI: passive HI: none VH/AH: appears internally preoccupied Delusions: she is not fully forthcoming with extend of delusional content, but suspect a combination of somatic delusions triggering changes in mood and suicidality. Insight/judgment: impaired x 2. Memory/cog: alert, oriented to place, month, year and situation. Diagnostics Vital Signs (24Hr): Vital Signs - 24 hr 02/16/25 20:00 02/17/25 08:00 02/17/25 08:29 Temperature 97.7 F 98.2 F Pulse Rate 75 78 Respiratory Rate 18 15 Blood Pressure 119/60 107/73 107/73 Pulse Oximetry 91 L 86 L Oxygen Delivery Method Room Air Room Air Oxygen Flow Rate 02/17/25 10:03 Temperature Pulse Rate Respiratory Rate Blood Pressure Pulse Oximetry 93 Oxygen Delivery Method Nasal Cannula Oxygen Flow Rate 4 BMI result Body Mass Index 28.5 Labs 02/17/25 09:16 02/17/25 09:16 Labs: Laboratory Results - last 48 hr 02/16/25 02/17/25 02/17/25 12:25 09:16 09:25 WBC 6.1 RBC 4.27 Hgb 13.2 Hct 39.2 MCV 91.8 MCH 30.9 MCHC 33.7 RDW 12.9 Plt Count 228 MPV 9.7 Immature Gran % (Auto) 0.3 Neut % (Auto) 56.2 Lymph % (Auto) 30.1 Rich % (Auto) 8.7 Eos % (Auto) 4.2 H Baso % (Auto) 0.5 Lymph # (Auto) 1.8 Rich # (Auto) 0.5 Eos # (Auto) 0.3 Baso # (Auto) 0.0 Abs Immat Gran (auto) 0.02 Absolute Neuts (auto) 3.4 Absolute Nucleated RBC 0.000 Nucleated RBC % (auto) 0.0 D-Dimer High Sensitivty 211 Sodium 140 Potassium 3.9 Chloride 104 Carbon Dioxide 27 Anion Gap 13 BUN 15 Creatinine 0.87 Estim Creat Clear Calc 57.2 Estimated GFR > 60 Random Glucose 115 Calcium 9.7 D Total Bilirubin 0.2 AST 24 ALT 18 Alkaline Phosphatase 69 Ammonia 59 H Total Protein 6.4 L Albumin 4.1 Respiratory Panel Silva See Note Adenovirus (Rapid PCR) Not Detected B.pert (TEM-PCR) Not Detected B.parapertussis DNA PCR Not Detected C. pneumoniae DNA (PCR) Not Detected Coronavirus OC43 (PCR) Not Detected Coronavirus HKU1 (PCR) Not Detected Coronavirus 229E (PCR) Not Detected Coronavirus NL63 (PCR) Not Detected Human Metapneumovir PCR Not Detected Influenza A (RT-PCR) Not Detected Influenza A (H1) PCR Not Detected Influ A (H1/09) PCR Not Detected Influenza A (H3) PCR Not Detected Influenza B (RT-PCR) Not Detected M. pneumoniae (PCR) Not Detected Parainfluenza 1 (PCR) Not Detected Parainfluenza 2 (PCR) Not Detected Parainfluenza 3 (PCR) Not Detected Parainfluenza 4 (PCR) Not Detected RSV (PCR) Not Detected Entero/Rhino (PCR) Not Detected SARS-CoV-2 RNA (RT-PCR) Not Detected Imaging Radiology Impressions: ITS Impressions Chest X-Ray 02/17/25 09:00 IMPRESSION: There is bibasilar atelectasis. No acute process seen. Electronically signed by: Noah Greene MD 02/17/2025 09:34 AM EDT Medications Medications Current Medications Acetaminophen (Acetaminophen 325 Mg Tablet) 650 mg PO Q6H PRN PRN Reason: Headache/Pain, Scale 1-10 Last Admin: 02/12/25 06:14 Dose: 650 mg Al Hydroxide/Mg Hydroxide (Magnesium Hydrox/Alum Hydrox 30 Ml Oral.Susp) 30 ml PO Q6H PRN PRN Reason: Heartburn/Nausea Last Admin: 02/13/25 04:41 Dose: 30 ml Albuterol Sulfate (Albuterol Sulfate 90 Mcg 8 Gm Inhaler) 2 puff INHALE Q4H PRN PRN Reason: Shortness Of Breath Or Wheezing Last Admin: 02/17/25 08:27 Dose: 2 puff Amlodipine Besylate (Amlodipine Besylate 5 Mg Tablet) 5 mg PO DAILY [facility]; Protocol Last Admin: 02/17/25 08:29 Dose: 5 mg Atorvastatin Calcium (Atorvastatin Calcium 40 Mg Tablet) 40 mg PO DAILY [facility] Last Admin: 02/17/25 08:33 Dose: 40 mg Brexpiprazole (Brexpiprazole 1 Mg Tablet) 1 mg PO DAILY [facility] Last Admin: 02/17/25 08:33 Dose: 1 mg Buspirone HCl (Buspirone Hcl 5 Mg Tablet) 15 mg PO TID [facility] Last Admin: 02/17/25 08:33 Dose: 15 mg Celecoxib (Celecoxib 100 Mg Capsule) 100 mg PO BID [facility] Last Admin: 02/17/25 08:33 Dose: 100 mg Diazepam (Diazepam 2 Mg Tablet) 2 mg PO TID [facility] Last Admin: 02/17/25 08:33 Dose: 2 mg Divalproex Sodium (Divalproex Sodium 500 Mg Tablet.Dr) 500 mg PO BID [facility] Last Admin: 02/17/25 08:33 Dose: 500 mg Escitalopram Oxalate (Escitalopram Oxalate 10 Mg Tablet) 10 mg PO DAILY [facility] Last Admin: 02/17/25 08:33 Dose: 10 mg Fluticasone Propionate (Fluticasone Propionate Nasal 16 Gm [place]) 2 spray NOSTRIL-B BID [facility] Last Admin: 02/17/25 08:28 Dose: 2 spray Gabapentin (Gabapentin 300 Mg Capsule) 300 mg PO TID [facility] Last Admin: 02/17/25 08:33 Dose: 300 mg Lactulose (Lactulose 20 Gm/30 Ml Solution) 20 gm PO DAILY [facility] Last Admin: 02/17/25 08:28 Dose: 20 gm Letrozole (Letrozole 2.5 Mg Tablet) 2.5 mg PO DAILY [facility] Last Admin: 02/17/25 08:33 Dose: 2.5 mg Lidocaine (Lidocaine 4 % Patch Adh..Patch) 2 patch TRANSDERMA DAILY [facility]; Protocol Last Admin: 02/17/25 08:27 Dose: 2 patch Magnesium Hydroxide (Milk Of Magnesia 30 Ml Oral.Susp) 30 ml PO DAILY PRN PRN Reason: Constipation Last Admin: 02/13/25 13:23 Dose: 30 ml Mirabegron (Mirabegron 25 Mg Tab.Er.24h) 25 mg PO DAILY [facility] Last Admin: 02/17/25 08:33 Dose: 25 mg Nicotine (Nicotine 21 Mg Patch.Td24) 21 mg TRANSDERMA DAILY PRN PRN Reason: smoking cessation Nicotine Polacrilex (Nicotine Polacrilex 2 Mg Gum) 4 mg BUCCAL Q2H PRN PRN Reason: Nicotine Cravings Nystatin (Nystatin Powder 15 Gm Bottle) 1 appl TOPICAL BID [facility]; Protocol Last Admin: 02/16/25 19:55 Dose: 1 appl Olanzapine (Olanzapine 10 Mg Tablet) 10 mg PO BEDTIME [facility] Last Admin: 02/16/25 19:57 Dose: 10 mg Olanzapine (Olanzapine 5 Mg Tablet) 5 mg PO TID PRN PRN Reason: agitation/severe anxiety Omeprazole (Omeprazole 20 Mg Capsule.Dr) 20 mg PO DAILY@0630 [facility] Last Admin: 02/17/25 05:40 Dose: 20 mg Rivaroxaban (Rivaroxaban 10 Mg Tablet) 10 mg PO DAILY [facility] Last Admin: 02/17/25 08:33 Dose: 10 mg Senna/Docusate Sodium (Sennosides/Docusate Sodium Tablet) 1 tab PO BID [facility] Last Admin: 02/17/25 08:33 Dose: 1 tab Sumatriptan Succinate (Sumatriptan Succinate 50 Mg Tablet) 50 mg PO DAILY MRX1 PRN PRN Reason: Migraine Headache Last Admin: 02/15/25 10:47 Dose: 50 mg Tramadol HCl (Tramadol Hcl 50 Mg Tablet) 50 mg PO BID PRN PRN Reason: Pain, Severe (Pain Scale 7-10) Last Admin: 02/17/25 08:42 Dose: 50 mg Trazodone HCl (Trazodone Hcl 100 Mg Tablet) 100 mg PO ONCE PRN PRN Reason: Insomnia Last Admin: 02/14/25 23:13 Dose: 100 mg Trazodone HCl (Trazodone Hcl 100 Mg Tablet) 200 mg PO BEDTIME PRN PRN Reason: Insomnia Last Admin: 02/16/25 20:04 Dose: 200 mg Allergies Allergies Allergy/AdvReac Type Severity Reaction Status Date / Time morphine AdvReac Severe Rash Verified 02/12/25 04:00 codeine AdvReac Intermediate Rash Verified 02/12/25 04:01 theophylline AdvReac Intermediate Palpitation Verified 02/12/25 04:01 s thiothixene AdvReac Intermediate Unknown Verified 02/12/25 04:00 propoxyphene AdvReac Unknown Unknown Verified 02/12/25 03:59 Assessment & Plan Assessment & Plan (1) Schizoaffective disorder, bipolar type: Status: Acute Code(s): F25.0 - Schizoaffective disorder, bipolar type Plan Ms. De La Fuente is a 74 year-old woman who self presented to [facility] reporting increase depression and suicidal ideation with plan to cut her wrist with a razor. She reported suicidal thoughts in context of having pain related to migraine and fear that she may have HIV due to exposure more than 10 years ago. HIV test was non reactive. On the unit, pt presents somatically preoccupied with some degree of delusions such as when she reports feeling that tylenol is causing swelling of her brain which she then says turns into suicidal thoughts and urges to cut her wrist. She also reports hearing some voices and seeing images in white and black and sometimes commercials in her mind. She displays an asydentic thinking in that causal link between ideas is not related or is less logically connected. On the surface, may not seem as overt delusional process given that most of her concerns related to suicidal thoughts are somatic but as one follows her train of thought is more clear the disconnect. Pending collateral information from sister and outpatient providers. She does have resting tremor, suspect more susceptible to movement disorder side effects, especially with high potency antipsychotics. She is currently on olanzapine 10mg po qhs. We did discuss trial of rexulti 1mg po daily which patient was in agreement to try. We also discussed adding low dose diazepam 2mg po TID. PLAN 02/14 continue depakote 1000mg po BID. continue rexulti 1mg po daily, continue olanzapine, may switch to rexulti if effective. 02/15 continue tx 02/16 continue tx. 02/17 increase oxygenation need, seen by hospitalist, no infection nor exacerbation of COPD. monitor ammonia, continues to be elevated higher today at 68. scheduled lactulose. continue to monitor, suspect this is related to depakote. may consider changing to carbamazepine. Reason for continued inpatient stay Substantial Risk for: inability to function Time Spent With Patient Time: Total time managing care of this patient today ____ minutes.
[2025-02-17 11:51] LABS: Ammonia 68 umol/L (13-55)
--- NOTE | 2025-02-17 13:04 | HO.PM.IMCN ---
History of Present Illness Data of Consult Service Date: 02/17/25 Requesting physician: Alexus Hayes Primary Care Provider: Unknown Physician HPI Reason for consult: worsening hypoxia 74-year-old female with a PMH significant for COPD on 2L home O2 prn, hx of breast cancer, HLD, hypothyroidism, GERD, chronic back pain, dementia, anxiety, and schizoaffective disorder bipolar type?who is admitted to [facility] for increasing depression and anxiety with SI. Consult placed to hospitalist service for increased O2 requirement. Per nursing the patient desatted to 86% on 2L and supplemental O2 was increased to 4L now maintaining O2 91-93%. There have been no fevers, vitals otherwise stable. There is no leukocytosis. Ammonia is elevated at 68, overall stable in mentation is baseline. Respiratory panel is negative. Chest x-ray shows bibasilar atelectasis but no focal consolidations or opacities. She denies any sweats, chills, sore throat, congestion, cough, shortness of breath, wheezing, or chest pain. Review of Systems Review of Systems: Yes all other systems are reviewed and are negative [facility] Medical History (Updated 02/17/25 @ 13:16 by JOAQUIM Goldberg) Chronic respiratory failure Hypothyroidism COPD (chronic obstructive pulmonary disease) Dementia Breast cancer Social History Household Members: None Housing: Group Home Do you presently have visiting nurse or other home services: No Comment: 5-min safety checks Patient Tobacco Use Status: Former Tobacco user Tobacco use type: Cigarette Smoked in Last 30 Days: No Use of substances other than those prescribed or required for medical reasons: No Currently Displaying Signs/Symptoms of Drug Intoxication Withdrawal: No Have you been hit, kicked, punched, or otherwise hurt by someone within the past year? If so, by whom?: No Do you feel safe in your current relationship?: No Current Relationship Advance Directives: No Advance Directives Information Provided: Yes Do you have thoughts of harming others: None Do you have a plan to hurt others: No Plan Recently lost weight without trying: Unsure Nutrition Risks: No Nutritional Risk Patient : No : No service: No Sexual orientation: Straight/Heterosexual Meds Allergies Allergy/AdvReac Type Severity Reaction Status Date / Time morphine AdvReac Severe Rash Verified 02/12/25 04:00 codeine AdvReac Intermediate Rash Verified 02/12/25 04:01 theophylline AdvReac Intermediate Palpitation Verified 02/12/25 04:01 s thiothixene AdvReac Intermediate Unknown Verified 02/12/25 04:00 propoxyphene AdvReac Unknown Unknown Verified 02/12/25 03:59 Active Medications: Current Medications Acetaminophen (Acetaminophen 325 Mg Tablet) 650 mg PO Q6H PRN PRN Reason: Headache/Pain, Scale 1-10 Last Admin: 02/12/25 06:14 Dose: 650 mg Al Hydroxide/Mg Hydroxide (Magnesium Hydrox/Alum Hydrox 30 Ml Oral.Susp) 30 ml PO Q6H PRN PRN Reason: Heartburn/Nausea Last Admin: 02/13/25 04:41 Dose: 30 ml Albuterol Sulfate (Albuterol Sulfate 90 Mcg 8 Gm Inhaler) 2 puff INHALE Q4H PRN PRN Reason: Shortness Of Breath Or Wheezing Last Admin: 02/17/25 08:27 Dose: 2 puff Amlodipine Besylate (Amlodipine Besylate 5 Mg Tablet) 5 mg PO DAILY [facility]; Protocol Last Admin: 02/17/25 08:29 Dose: 5 mg Atorvastatin Calcium (Atorvastatin Calcium 40 Mg Tablet) 40 mg PO DAILY [facility] Last Admin: 02/17/25 08:33 Dose: 40 mg Brexpiprazole (Brexpiprazole 1 Mg Tablet) 1 mg PO DAILY [facility] Last Admin: 02/17/25 08:33 Dose: 1 mg Buspirone HCl (Buspirone Hcl 5 Mg Tablet) 15 mg PO TID [facility] Last Admin: 02/17/25 08:33 Dose: 15 mg Celecoxib (Celecoxib 100 Mg Capsule) 100 mg PO BID [facility] Last Admin: 02/17/25 08:33 Dose: 100 mg Diazepam (Diazepam 2 Mg Tablet) 2 mg PO TID [facility] Last Admin: 02/17/25 08:33 Dose: 2 mg Divalproex Sodium (Divalproex Sodium 500 Mg Tablet.Dr) 500 mg PO BID [facility] Last Admin: 02/17/25 08:33 Dose: 500 mg Escitalopram Oxalate (Escitalopram Oxalate 10 Mg Tablet) 10 mg PO DAILY [facility] Last Admin: 02/17/25 08:33 Dose: 10 mg Fluticasone Propionate (Fluticasone Propionate Nasal 16 Gm [place]) 2 spray NOSTRIL-B BID [facility] Last Admin: 02/17/25 08:28 Dose: 2 spray Gabapentin (Gabapentin 300 Mg Capsule) 300 mg PO TID [facility] Last Admin: 02/17/25 08:33 Dose: 300 mg Lactulose (Lactulose 20 Gm/30 Ml Solution) 20 gm PO DAILY [facility] Last Admin: 02/17/25 08:28 Dose: 20 gm Letrozole (Letrozole 2.5 Mg Tablet) 2.5 mg PO DAILY [facility] Last Admin: 02/17/25 08:33 Dose: 2.5 mg Lidocaine (Lidocaine 4 % Patch Adh..Patch) 2 patch TRANSDERMA DAILY [facility]; Protocol Last Admin: 02/17/25 08:27 Dose: 2 patch Magnesium Hydroxide (Milk Of Magnesia 30 Ml Oral.Susp) 30 ml PO DAILY PRN PRN Reason: Constipation Last Admin: 02/13/25 13:23 Dose: 30 ml Mirabegron (Mirabegron 25 Mg Tab.Er.24h) 25 mg PO DAILY [facility] Last Admin: 02/17/25 08:33 Dose: 25 mg Nicotine (Nicotine 21 Mg Patch.Td24) 21 mg TRANSDERMA DAILY PRN PRN Reason: smoking cessation Nicotine Polacrilex (Nicotine Polacrilex 2 Mg Gum) 4 mg BUCCAL Q2H PRN PRN Reason: Nicotine Cravings Nystatin (Nystatin Powder 15 Gm Bottle) 1 appl TOPICAL BID [facility]; Protocol Last Admin: 02/16/25 19:55 Dose: 1 appl Olanzapine (Olanzapine 10 Mg Tablet) 10 mg PO BEDTIME [facility] Last Admin: 02/16/25 19:57 Dose: 10 mg Olanzapine (Olanzapine 5 Mg Tablet) 5 mg PO TID PRN PRN Reason: agitation/severe anxiety Omeprazole (Omeprazole 20 Mg Capsule.Dr) 20 mg PO DAILY@0630 [facility] Last Admin: 02/17/25 05:40 Dose: 20 mg Rivaroxaban (Rivaroxaban 10 Mg Tablet) 10 mg PO DAILY [facility] Last Admin: 02/17/25 08:33 Dose: 10 mg Senna/Docusate Sodium (Sennosides/Docusate Sodium Tablet) 1 tab PO BID [facility] Last Admin: 02/17/25 08:33 Dose: 1 tab Sumatriptan Succinate (Sumatriptan Succinate 50 Mg Tablet) 50 mg PO DAILY MRX1 PRN PRN Reason: Migraine Headache Last Admin: 02/15/25 10:47 Dose: 50 mg Tramadol HCl (Tramadol Hcl 50 Mg Tablet) 50 mg PO BID PRN PRN Reason: Pain, Severe (Pain Scale 7-10) Last Admin: 02/17/25 08:42 Dose: 50 mg Trazodone HCl (Trazodone Hcl 100 Mg Tablet) 100 mg PO ONCE PRN PRN Reason: Insomnia Last Admin: 02/14/25 23:13 Dose: 100 mg Trazodone HCl (Trazodone Hcl 100 Mg Tablet) 200 mg PO BEDTIME PRN PRN Reason: Insomnia Last Admin: 02/16/25 20:04 Dose: 200 mg Home Medications ?Medication ?Instructions ?Recorded ?Confirmed ?Last Taken ?Type albuterol sulfate 90 mcg/actuation 2 puff inhalation Q4H PRN 02/12/25 02/12/25 Unknown History aerosol inhaler (Ventolin HFA) Shortness Of Breath Or Wheezing atorvastatin 40 mg tablet 40 mg PO DAILY 02/12/25 02/12/25 Unknown History buspirone 15 mg tablet 15 mg PO TID 02/12/25 02/12/25 Unknown History celecoxib 100 mg capsule 100 mg PO BID 02/12/25 02/12/25 Unknown History divalproex 500 mg tablet,delayed 500 mg PO BID 02/12/25 02/12/25 Unknown History release escitalopram oxalate 10 mg tablet 10 mg PO DAILY 02/12/25 02/12/25 Unknown History fluticasone propionate 50 2 spray intranasal BID 02/12/25 02/12/25 Unknown History mcg/actuation nasal spray,suspension gabapentin 300 mg capsule 300 mg PO TID 02/12/25 02/12/25 Unknown History letrozole 2.5 mg tablet 2.5 mg PO DAILY 02/12/25 02/12/25 Unknown History levothyroxine 50 mcg tablet 50 mcg PO DAILY 02/12/25 02/12/25 Unknown History mirabegron 25 mg tablet,extended 25 mg PO DAILY 02/12/25 02/12/25 Unknown History release 24 hr (Myrbetriq) olanzapine 10 mg tablet 10 mg PO BEDTIME 02/12/25 02/12/25 Unknown History pantoprazole 40 mg tablet,delayed 40 mg PO DAILY 02/12/25 02/12/25 Unknown History release pramipexole 0.125 mg tablet 0.125 mg PO DAILY 02/12/25 02/12/25 Unknown History quetiapine 25 mg tablet 50 mg PO TID PRN Anxiety 02/12/25 02/12/25 Unknown History rivaroxaban 10 mg tablet (Xarelto) 10 mg PO DAILY 02/12/25 02/12/25 Unknown History trazodone 100 mg tablet 200 mg PO BEDTIME PRN Insomnia 02/12/25 02/12/25 Unknown History Physical Exam Vital Signs and Narrative: Vital Signs: Last Vital Signs Temp 98.2 F 02/17/25 08:00 Pulse 78 02/17/25 08:00 Resp 15 02/17/25 08:00 BP 107/73 02/17/25 08:29 Pulse Ox 93 02/17/25 10:03 O2 Del Method Nasal Cannula 02/17/25 10:03 O2 Flow Rate 4 02/17/25 10:03 BMI result Body Mass Index 28.5 Constitutional - Awake and Alert, No apparent distress Eyes - PERRLA, EOMI Cardiovascular - S1S2, RRR, No edema Respiratory - Normal lung expansion, Normal respiratory effort, No respiratory distress, CTA bilaterally except for some crackles in the RLL Extremities - no calf tenderness bilaterally, no swelling Skin - Warm/Dry Neurological - Alert & oriented x3 Psychological - Appropriate affect Results Labs 02/17/25 09:16 02/17/25 09:16 Labs: Laboratory Results - last 24 hr 02/17/25 02/17/25 02/17/25 09:16 09:25 11:38 MCV 91.8 MCH 30.9 MCHC 33.7 RDW 12.9 Plt Count 228 MPV 9.7 Immature Gran % (Auto) 0.3 Neut % (Auto) 56.2 Lymph % (Auto) 30.1 [place] % (Auto) 8.7 Eos % (Auto) 4.2 H Baso % (Auto) 0.5 Lymph # (Auto) 1.8 [place] # (Auto) 0.5 Eos # (Auto) 0.3 Baso # (Auto) 0.0 Abs Immat Gran (auto) 0.02 Absolute Neuts (auto) 3.4 Absolute Nucleated RBC 0.000 Nucleated RBC % (auto) 0.0 D-Dimer High Sensitivty 211 Anion Gap 13 Estim Creat Clear Calc 57.2 Estimated GFR > 60 Random Glucose 115 Calcium 9.7 D Total Bilirubin 0.2 AST 24 ALT 18 Alkaline Phosphatase 69 Ammonia 68 H Total Protein 6.4 L Albumin 4.1 Respiratory Panel Silva See Note Adenovirus (Rapid PCR) Not Detected B.pert (TEM-PCR) Not Detected B.parapertussis DNA PCR Not Detected C. pneumoniae DNA (PCR) Not Detected Coronavirus OC43 (PCR) Not Detected Coronavirus HKU1 (PCR) Not Detected Coronavirus 229E (PCR) Not Detected Coronavirus NL63 (PCR) Not Detected Human Metapneumovir PCR Not Detected Influenza A (RT-PCR) Not Detected Influenza A (H1) PCR Not Detected Influ A (H1/09) PCR Not Detected Influenza A (H3) PCR Not Detected Influenza B (RT-PCR) Not Detected M. pneumoniae (PCR) Not Detected Parainfluenza 1 (PCR) Not Detected Parainfluenza 2 (PCR) Not Detected Parainfluenza 3 (PCR) Not Detected Parainfluenza 4 (PCR) Not Detected RSV (PCR) Not Detected Entero/Rhino (PCR) Not Detected SARS-CoV-2 RNA (RT-PCR) Not Detected Imaging Radiologist's Impressions: Impressions Chest X-Ray 02/17/25 09:00 IMPRESSION: There is bibasilar atelectasis. No acute process seen. Electronically signed by: Noah Greene MD 02/17/2025 09:34 AM EDT Assessment and Plan (1) Acute and chronic respiratory failure: Status: Acute (2) Mild bibasilar atelectasis: Status: Acute Plan 74-year-old female with a PMH significant for COPD on 2L home O2 prn, hx of breast cancer, HLD, hypothyroidism, GERD, chronic back pain, dementia, anxiety, and schizoaffective disorder bipolar type admitted to [facility] with consult placed hospitalist service evaluation of acute on chronic hypoxemic respiratory failure. Acute on chronic hypoxemic respiratory failure Baseline 2 L supplemental O2 secondary to her COPD CXR shows bibasilar atelectasis, no focal consolidations or opacities No symptoms consistent with pneumonia or COPD exacerbation including cough, shortness of breath, wheezing. No leukocytosis or fevers No indication for antibiotics or steroids at this time Recommend incentive spirometry Continue supplemental O2 to maintain oximetry around 90-92% Thank you for allowing me to participate in this consult. Signing off at this time. Please do not hesitate to call for further questions or for any acute medicall issues.
[2025-02-17] MEDS: Nystatin Powder 15 GM BOTTLE 1 APPL TOPICAL ×2 (18:10→20:36)
[2025-02-17] MEDS: Simethicone 80 MG TAB.CHEW PO (18:26)
[2025-02-17 20:00] VITALS: BP 106/56; PULSE 74; RESP 16; TEMP 36.2; O2SAT 94
[2025-02-17] MEDS: traZODone HCL 100 MG TABLET 200 MG PO (20:37)
[2025-02-17] MEDS: OLANZapine 10 MG TABLET PO (20:37)
[2025-02-18] MEDS: OLANZapine 5 MG TABLET PO (02:39)
[2025-02-18] MEDS: traMADoL HCL 50 MG TABLET PO ×3 (02:45→20:35)
[2025-02-18] MEDS: Omeprazole 20 MG CAPSULE.DR PO (06:13)
[2025-02-18 08:33] VITALS: BP 101/60; PULSE 78; RESP 16; TEMP 36.2; O2SAT 95
[2025-02-18] MEDS: Lidocaine 4 % Patch ADH..PATCH 2 PATCH TRANSDERMA (08:37)
[2025-02-18] MEDS: Fluticasone Propionate Nasal 16 GM SPRAY 2 SPRAY NOSTRIL-B ×2 (08:37→20:32)
[2025-02-18] MEDS: busPIRone HCl 5 MG TABLET 15 MG PO ×3 (08:42→20:33)
[2025-02-18] MEDS: amLODIPine Besylate 5 MG TABLET PO (08:43)
[2025-02-18] MEDS: Sennosides/Docusate Sodium TABLET 1 TAB PO ×2 (08:43→20:32)
[2025-02-18] MEDS: Celecoxib 100 MG CAPSULE PO ×2 (08:43→20:36)
[2025-02-18] MEDS: Escitalopram Oxalate 10 MG TABLET PO (08:43)
[2025-02-18] MEDS: Gabapentin 300 MG CAPSULE PO ×3 (08:43→20:34)
[2025-02-18] MEDS: Atorvastatin Calcium 40 MG TABLET PO (08:44)
[2025-02-18] MEDS: diazePAM 2 MG TABLET PO ×3 (08:44→20:36)
[2025-02-18] MEDS: Divalproex Sodium 500 MG TABLET.DR PO (08:44)
[2025-02-18] MEDS: Brexpiprazole 1 MG TABLET PO (08:44)
[2025-02-18] MEDS: Rivaroxaban 10 MG TABLET PO (08:44)
[2025-02-18] MEDS: Lactulose 20 GM/30 ML SOLUTION PO ×3 (08:45→20:32)
[2025-02-18] MEDS: Letrozole 2.5 MG TABLET PO (08:45)
[2025-02-18] MEDS: Mirabegron 25 MG TAB.ER.24H PO (08:45)
[2025-02-18] MEDS: Nystatin Powder 15 GM BOTTLE 1 APPL TOPICAL ×2 (08:46→20:31)
[2025-02-18] MEDS: Simethicone 80 MG TAB.CHEW PO ×2 (10:20→16:51)
[2025-02-18] MEDS: Milk of Magnesia 30 ML ORAL.SUSP PO (11:12)
[2025-02-18 11:49] LABS: Ammonia 59 umol/L (13-55)
[2025-02-18 20:00] VITALS: BP 100/59; PULSE 74; RESP 18; TEMP 26.1; O2SAT 93
[2025-02-18] MEDS: traZODone HCL 100 MG TABLET 200 MG PO (20:34)
[2025-02-18] MEDS: OLANZapine 10 MG TABLET PO (20:35)
[2025-02-18] MEDS: carBAMazepine 200 MG TABLET PO (20:36)
--- NOTE | 2025-02-18 21:08 | P.PNPSI_ITS ---
Subjective Subjective Date of Service: 02/18/25 Reason For Visit: Schizoaffective disorder Subjective Notes: Conditional Voluntary Interim History: Pt slept through the night. She was desaturating to upper 80's needed 2L of oxygen but continue to desaturate, o2 increased to 4L, maintain between 90-93% chest XR, cbc, cmp orders, as well as BNP- seen by hospitalist. No s/s of infection nor need for prednisone. Pt reports she has not had BM in two days, reinforced this is to expect as she had laxatives. Latulose for hyperammonemia, increased to 20mg tid, discussed d/c depakote and changing to carbamazepine as pt reports this medication was helpful. Review of Systems Review of Systems Negative except for that which is stated in the HPI. Yes all other systems are reviewed and are negative Mental Status Exam Mental Status Exam Narrative: Appearance: wearing hospital gown, fair hygiene, in NAD Behavior: cooperative, friendly Psychomotor: resting tremors, more pronounced on right side Speech: clear, normal rate/rhythm/volume, spontaneous TP: somewhat disorganized at times TC: focused on pain and this causing suicidal thought Mood: anxious Affect: calmer, but somatically preoccupied SI: passive HI: none VH/AH: appears internally preoccupied Delusions: she is not fully forthcoming with extend of delusional content, but suspect a combination of somatic delusions triggering changes in mood and suicidality. Insight/judgment: impaired x 2. Memory/cog: alert, oriented to place, month, year and situation. Diagnostics Vital Signs (24Hr): Vital Signs - 24 hr 02/18/25 08:33 Temperature 97.1 F Pulse Rate 78 Respiratory Rate 16 Blood Pressure 101/60 Pulse Oximetry 95 Oxygen Delivery Method Nasal Cannula Oxygen Flow Rate 4 BMI result Body Mass Index 28.5 Labs 02/17/25 09:16 02/17/25 09:16 Labs: Laboratory Results - last 48 hr 02/17/25 02/17/25 02/17/25 09:16 09:25 11:38 WBC 6.1 RBC 4.27 Hgb 13.2 Hct 39.2 MCV 91.8 MCH 30.9 MCHC 33.7 RDW 12.9 Plt Count 228 MPV 9.7 Immature Gran % (Auto) 0.3 Neut % (Auto) 56.2 Lymph % (Auto) 30.1 [place] % (Auto) 8.7 Eos % (Auto) 4.2 H Baso % (Auto) 0.5 Lymph # (Auto) 1.8 [place] # (Auto) 0.5 Eos # (Auto) 0.3 Baso # (Auto) 0.0 Abs Immat Gran (auto) 0.02 Absolute Neuts (auto) 3.4 Absolute Nucleated RBC 0.000 Nucleated RBC % (auto) 0.0 D-Dimer High Sensitivty 211 Sodium 140 Potassium 3.9 Chloride 104 Carbon Dioxide 27 Anion Gap 13 BUN 15 Creatinine 0.87 Estim Creat Clear Calc 57.2 Estimated GFR > 60 Random Glucose 115 Calcium 9.7 D Total Bilirubin 0.2 AST 24 ALT 18 Alkaline Phosphatase 69 Ammonia 68 H Total Protein 6.4 L Albumin 4.1 Respiratory Panel Silva See Note Adenovirus (Rapid PCR) Not Detected B.pert (TEM-PCR) Not Detected B.parapertussis DNA PCR Not Detected C. pneumoniae DNA (PCR) Not Detected Coronavirus OC43 (PCR) Not Detected Coronavirus HKU1 (PCR) Not Detected Coronavirus 229E (PCR) Not Detected Coronavirus NL63 (PCR) Not Detected Human Metapneumovir PCR Not Detected Influenza A (RT-PCR) Not Detected Influenza A (H1) PCR Not Detected Influ A (H1/09) PCR Not Detected Influenza A (H3) PCR Not Detected Influenza B (RT-PCR) Not Detected M. pneumoniae (PCR) Not Detected Parainfluenza 1 (PCR) Not Detected Parainfluenza 2 (PCR) Not Detected Parainfluenza 3 (PCR) Not Detected Parainfluenza 4 (PCR) Not Detected RSV (PCR) Not Detected Entero/Rhino (PCR) Not Detected SARS-CoV-2 RNA (RT-PCR) Not Detected 02/18/25 11:38 WBC RBC Hgb Hct MCV MCH MCHC RDW Plt Count MPV Immature Gran % (Auto) Neut % (Auto) Lymph % (Auto) [place] % (Auto) Eos % (Auto) Baso % (Auto) Lymph # (Auto) [place] # (Auto) Eos # (Auto) Baso # (Auto) Abs Immat Gran (auto) Absolute Neuts (auto) Absolute Nucleated RBC Nucleated RBC % (auto) D-Dimer High Sensitivty Sodium Potassium Chloride Carbon Dioxide Anion Gap BUN Creatinine Estim Creat Clear Calc Estimated GFR Random Glucose Calcium Total Bilirubin AST ALT Alkaline Phosphatase Ammonia 59 H Total Protein Albumin Respiratory Panel Silva Adenovirus (Rapid PCR) B.pert (TEM-PCR) B.parapertussis DNA PCR C. pneumoniae DNA (PCR) Coronavirus OC43 (PCR) Coronavirus HKU1 (PCR) Coronavirus 229E (PCR) Coronavirus NL63 (PCR) Human Metapneumovir PCR Influenza A (RT-PCR) Influenza A (H1) PCR Influ A (H1/) PCR Influenza A (H3) PCR Influenza B (RT-PCR) M. pneumoniae (PCR) Parainfluenza 1 (PCR) Parainfluenza 2 (PCR) Parainfluenza 3 (PCR) Parainfluenza 4 (PCR) RSV (PCR) Entero/Rhino (PCR) SARS-CoV-2 RNA (RT-PCR) Imaging Radiology Impressions: ITS Impressions Chest X-Ray 02/17/25 09:00 IMPRESSION: There is bibasilar atelectasis. No acute process seen. Electronically signed by: Noah Greene MD 02/17/2025 09:34 AM EDT Medications Medications Current Medications Acetaminophen (Acetaminophen 325 Mg Tablet) 650 mg PO Q6H PRN PRN Reason: Headache/Pain, Scale 1-10 Last Admin: 02/12/25 06:14 Dose: 650 mg Al Hydroxide/Mg Hydroxide (Magnesium Hydrox/Alum Hydrox 30 Ml Oral.Susp) 30 ml PO Q6H PRN PRN Reason: Heartburn/Nausea Last Admin: 02/13/25 04:41 Dose: 30 ml Albuterol Sulfate (Albuterol Sulfate 90 Mcg 8 Gm Inhaler) 2 puff INHALE Q4H PRN PRN Reason: Shortness Of Breath Or Wheezing Last Admin: 02/17/25 08:27 Dose: 2 puff Amlodipine Besylate (Amlodipine Besylate 5 Mg Tablet) 5 mg PO DAILY [facility]; Protocol Last Admin: 02/18/25 08:43 Dose: 5 mg Atorvastatin Calcium (Atorvastatin Calcium 40 Mg Tablet) 40 mg PO DAILY [facility] Last Admin: 02/18/25 08:44 Dose: 40 mg Brexpiprazole (Brexpiprazole 2 Mg Tablet) 2 mg PO DAILY [facility] Buspirone HCl (Buspirone Hcl 5 Mg Tablet) 15 mg PO TID [facility] Last Admin: 02/18/25 20:33 Dose: 15 mg Carbamazepine (Carbamazepine 200 Mg Tablet) 200 mg PO BID [facility] Last Admin: 02/18/25 20:36 Dose: 200 mg Celecoxib (Celecoxib 100 Mg Capsule) 100 mg PO BID [facility] Last Admin: 02/18/25 20:36 Dose: 100 mg Diazepam (Diazepam 2 Mg Tablet) 2 mg PO TID [facility] Last Admin: 02/18/25 20:36 Dose: 2 mg Divalproex Sodium (Divalproex Sodium 500 Mg Tablet.Dr) 500 mg PO DAILY [facility] Escitalopram Oxalate (Escitalopram Oxalate 10 Mg Tablet) 10 mg PO DAILY [facility] Last Admin: 02/18/25 08:43 Dose: 10 mg Fluticasone Propionate (Fluticasone Propionate Nasal 16 Gm [place]) 2 spray NOSTRIL-B BID [facility] Last Admin: 02/18/25 20:32 Dose: 2 spray Gabapentin (Gabapentin 300 Mg Capsule) 300 mg PO TID [facility] Last Admin: 02/18/25 20:34 Dose: 300 mg Lactulose (Lactulose 20 Gm/30 Ml Solution) 20 gm PO TID [facility] Last Admin: 02/18/25 20:32 Dose: 20 gm Letrozole (Letrozole 2.5 Mg Tablet) 2.5 mg PO DAILY [facility] Last Admin: 02/18/25 08:45 Dose: 2.5 mg Lidocaine (Lidocaine 4 % Patch Adh..Patch) 2 patch TRANSDERMA DAILY [facility]; Protocol Last Admin: 02/18/25 08:37 Dose: 2 patch Magnesium Hydroxide (Milk Of Magnesia 30 Ml Oral.Susp) 30 ml PO DAILY PRN PRN Reason: Constipation Last Admin: 02/18/25 11:12 Dose: 30 ml Mirabegron (Mirabegron 25 Mg Tab.Er.24h) 25 mg PO DAILY [facility] Last Admin: 02/18/25 08:45 Dose: 25 mg Nicotine (Nicotine 21 Mg Patch.Td24) 21 mg TRANSDERMA DAILY PRN PRN Reason: smoking cessation Nicotine Polacrilex (Nicotine Polacrilex 2 Mg Gum) 4 mg BUCCAL Q2H PRN PRN Reason: Nicotine Cravings Nystatin (Nystatin Powder 15 Gm Bottle) 1 appl TOPICAL BID [facility]; Protocol Last Admin: 02/18/25 20:31 Dose: 1 appl Olanzapine (Olanzapine 10 Mg Tablet) 10 mg PO BEDTIME [facility] Last Admin: 02/18/25 20:35 Dose: 10 mg Olanzapine (Olanzapine 5 Mg Tablet) 5 mg PO TID PRN PRN Reason: agitation/severe anxiety Last Admin: 02/18/25 02:39 Dose: 5 mg Omeprazole (Omeprazole 20 Mg Capsule.Dr) 20 mg PO DAILY@0630 [facility] Last Admin: 02/18/25 06:13 Dose: 20 mg Rivaroxaban (Rivaroxaban 10 Mg Tablet) 10 mg PO DAILY [facility] Last Admin: 02/18/25 08:44 Dose: 10 mg Senna/Docusate Sodium (Sennosides/Docusate Sodium Tablet) 1 tab PO BID [facility] Last Admin: 02/18/25 20:32 Dose: 1 tab Simethicone (Simethicone 80 Mg Tab.Chew) 80 mg PO QIDWMHS PRN PRN Reason: Gas Last Admin: 02/18/25 16:51 Dose: 80 mg Sumatriptan Succinate (Sumatriptan Succinate 50 Mg Tablet) 50 mg PO DAILY MRX1 PRN PRN Reason: Migraine Headache Last Admin: 02/15/25 10:47 Dose: 50 mg Tramadol HCl (Tramadol Hcl 50 Mg Tablet) 50 mg PO BID PRN PRN Reason: Pain, Severe (Pain Scale 7-10) Last Admin: 02/18/25 20:35 Dose: 50 mg Trazodone HCl (Trazodone Hcl 100 Mg Tablet) 100 mg PO ONCE PRN PRN Reason: Insomnia Last Admin: 02/14/25 23:13 Dose: 100 mg Trazodone HCl (Trazodone Hcl 100 Mg Tablet) 200 mg PO BEDTIME PRN PRN Reason: Insomnia Last Admin: 02/18/25 20:34 Dose: 200 mg Allergies Allergies Allergy/AdvReac Type Severity Reaction Status Date / Time morphine AdvReac Severe Rash Verified 02/12/25 04:00 codeine AdvReac Intermediate Rash Verified 02/12/25 04:01 theophylline AdvReac Intermediate Palpitation Verified 02/12/25 04:01 s thiothixene AdvReac Intermediate Unknown Verified 02/12/25 04:00 propoxyphene AdvReac Unknown Unknown Verified 02/12/25 03:59 Assessment & Plan Assessment & Plan (1) Schizoaffective disorder, bipolar type: Status: Acute Code(s): F25.0 - Schizoaffective disorder, bipolar type Plan Ms. De La Fuente is a 74 year-old woman who self presented to [facility] reporting increase depression and suicidal ideation with plan to cut her wrist with a razor. She reported suicidal thoughts in context of having pain related to migraine and fear that she may have HIV due to exposure more than 10 years ago. HIV test was non reactive. On the unit, pt presents somatically preoccupied with some degree of delusions such as when she reports feeling that tylenol is causing swelling of her brain which she then says turns into suicidal thoughts and urges to cut her wrist. She also reports hearing some voices and seeing images in white and black and sometimes commercials in her mind. She displays an asydentic thinking in that causal link between ideas is not related or is less logically connected. On the surface, may not seem as overt delusional process given that most of her concerns related to suicidal thoughts are somatic but as one follows her train of thought is more clear the disconnect. Pending collateral information from sister and outpatient providers. She does have resting tremor, suspect more susceptible to movement disorder side effects, especially with high potency antipsychotics. She is currently on olanzapine 10mg po qhs. We did discuss trial of rexulti 1mg po daily which patient was in agreement to try. We also discussed adding low dose diazepam 2mg po TID. PLAN 02/14 continue depakote 1000mg po BID. continue rexulti 1mg po daily, continue olanzapine, may switch to rexulti if effective. 02/15 continue tx 02/16 continue tx. 02/17 increase oxygenation need, seen by hospitalist, no infection nor exacerbation of COPD. monitor ammonia, continues to be elevated higher today at 68. scheduled lactulose. continue to monitor, suspect this is related to depakote. may consider changing to carbamazepine. 02/18 lower depakote to 500mg po daily, start carbamazepine 200mg po BID, increase lactulose to 20mg TID. monitor ammonia. Pt reported leg swelling but none noted on exam. no pitting edema. No SI/HI. Reason for continued inpatient stay Substantial Risk for: inability to function Time Spent With Patient Time: Total time managing care of this patient today ____ minutes.
[2025-02-18] MEDS: SUMAtriptan succinate 50 MG TABLET PO (23:15)
[2025-02-19] MEDS: Omeprazole 20 MG CAPSULE.DR PO (05:10)
[2025-02-19] MEDS: traMADoL HCL 50 MG TABLET PO ×3 (05:11→17:34)
--- NOTE | 2025-02-19 08:28 | P.PNPSI_ITS ---
Subjective Subjective Date of Service: 02/19/25 Reason For Visit: Schizoaffective disorder Interim History: Pt slept 7hrs. She was desaturating to upper 80's needed 2L of oxygen but continue to desaturate, o2 increased to 4L, maintain between 90-93% chest XR, cbc, cmp orders, as well as BNP- seen by hospitalist. No s/s of infection nor need for prednisone. Pt reports she woke up at night. She requests trazodone 50mg in addition to 200mg qhs- she is not using o2 at night and suspect also has sleep apnea. Review of Systems Review of Systems Negative except for that which is stated in the HPI. Yes all other systems are reviewed and are negative Mental Status Exam Mental Status Exam Narrative: Appearance: wearing hospital gown, fair hygiene, in NAD Behavior: cooperative, friendly Psychomotor: resting tremors, more pronounced on right side Speech: clear, normal rate/rhythm/volume, spontaneous TP: somewhat disorganized at times TC: focused on pain and this causing suicidal thought Mood: anxious Affect: calmer, but somatically preoccupied SI: passive HI: none VH/AH: appears internally preoccupied Delusions: she is not fully forthcoming with extend of delusional content, but suspect a combination of somatic delusions triggering changes in mood and suicidality. Insight/judgment: impaired x 2. Memory/cog: alert, oriented to place, month, year and situation. Diagnostics Vital Signs (24Hr): Vital Signs - 24 hr 02/18/25 08:33 02/18/25 20:00 Temperature 97.1 F 79 F L Pulse Rate 78 74 Respiratory Rate 16 18 Blood Pressure 101/60 100/59 L Pulse Oximetry 95 93 Oxygen Delivery Method Nasal Cannula Nasal Cannula Oxygen Flow Rate 4 4 BMI result Body Mass Index 28.5 Labs 02/17/25 09:16 02/17/25 09:16 Labs: Laboratory Results - last 48 hr 02/17/25 02/17/25 02/17/25 09:16 09:25 11:38 WBC 6.1 RBC 4.27 Hgb 13.2 Hct 39.2 MCV 91.8 MCH 30.9 MCHC 33.7 RDW 12.9 Plt Count 228 MPV 9.7 Immature Gran % (Auto) 0.3 Neut % (Auto) 56.2 Lymph % (Auto) 30.1 [place] % (Auto) 8.7 Eos % (Auto) 4.2 H Baso % (Auto) 0.5 Lymph # (Auto) 1.8 [place] # (Auto) 0.5 Eos # (Auto) 0.3 Baso # (Auto) 0.0 Abs Immat Gran (auto) 0.02 Absolute Neuts (auto) 3.4 Absolute Nucleated RBC 0.000 Nucleated RBC % (auto) 0.0 D-Dimer High Sensitivty 211 Sodium 140 Potassium 3.9 Chloride 104 Carbon Dioxide 27 Anion Gap 13 BUN 15 Creatinine 0.87 Estim Creat Clear Calc 57.2 Estimated GFR > 60 Random Glucose 115 Calcium 9.7 D Total Bilirubin 0.2 AST 24 ALT 18 Alkaline Phosphatase 69 Ammonia 68 H Total Protein 6.4 L Albumin 4.1 Respiratory Panel Silva See Note Adenovirus (Rapid PCR) Not Detected B.pert (TEM-PCR) Not Detected B.parapertussis DNA PCR Not Detected C. pneumoniae DNA (PCR) Not Detected Coronavirus OC43 (PCR) Not Detected Coronavirus HKU1 (PCR) Not Detected Coronavirus 229E (PCR) Not Detected Coronavirus NL63 (PCR) Not Detected Human Metapneumovir PCR Not Detected Influenza A (RT-PCR) Not Detected Influenza A (H1) PCR Not Detected Influ A (H1/09) PCR Not Detected Influenza A (H3) PCR Not Detected Influenza B (RT-PCR) Not Detected M. pneumoniae (PCR) Not Detected Parainfluenza 1 (PCR) Not Detected Parainfluenza 2 (PCR) Not Detected Parainfluenza 3 (PCR) Not Detected Parainfluenza 4 (PCR) Not Detected RSV (PCR) Not Detected Entero/Rhino (PCR) Not Detected SARS-CoV-2 RNA (RT-PCR) Not Detected 02/18/25 11:38 WBC RBC Hgb Hct MCV MCH MCHC RDW Plt Count MPV Immature Gran % (Auto) Neut % (Auto) Lymph % (Auto) [place] % (Auto) Eos % (Auto) Baso % (Auto) Lymph # (Auto) [place] # (Auto) Eos # (Auto) Baso # (Auto) Abs Immat Gran (auto) Absolute Neuts (auto) Absolute Nucleated RBC Nucleated RBC % (auto) D-Dimer High Sensitivty Sodium Potassium Chloride Carbon Dioxide Anion Gap BUN Creatinine Estim Creat Clear Calc Estimated GFR Random Glucose Calcium Total Bilirubin AST ALT Alkaline Phosphatase Ammonia 59 H Total Protein Albumin Respiratory Panel Silva Adenovirus (Rapid PCR) B.pert (TEM-PCR) B.parapertussis DNA PCR C. pneumoniae DNA (PCR) Coronavirus OC43 (PCR) Coronavirus HKU1 (PCR) Coronavirus 229E (PCR) Coronavirus NL63 (PCR) Human Metapneumovir PCR Influenza A (RT-PCR) Influenza A (H1) PCR Influ A (H1) PCR Influenza A (H3) PCR Influenza B (RT-PCR) M. pneumoniae (PCR) Parainfluenza 1 (PCR) Parainfluenza 2 (PCR) Parainfluenza 3 (PCR) Parainfluenza 4 (PCR) RSV (PCR) Entero/Rhino (PCR) SARS-CoV-2 RNA (RT-PCR) Imaging Radiology Impressions: ITS Impressions Chest X-Ray 02/17/25 09:00 IMPRESSION: There is bibasilar atelectasis. No acute process seen. Electronically signed by: Noah Greene MD 02/17/2025 09:34 AM EDT Medications Medications Current Medications Acetaminophen (Acetaminophen 325 Mg Tablet) 650 mg PO Q6H PRN PRN Reason: Headache/Pain, Scale 1-10 Last Admin: 02/12/25 06:14 Dose: 650 mg Al Hydroxide/Mg Hydroxide (Magnesium Hydrox/Alum Hydrox 30 Ml Oral.Susp) 30 ml PO Q6H PRN PRN Reason: Heartburn/Nausea Last Admin: 02/13/25 04:41 Dose: 30 ml Albuterol Sulfate (Albuterol Sulfate 90 Mcg 8 Gm Inhaler) 2 puff INHALE Q4H PRN PRN Reason: Shortness Of Breath Or Wheezing Last Admin: 02/17/25 08:27 Dose: 2 puff Amlodipine Besylate (Amlodipine Besylate 5 Mg Tablet) 5 mg PO DAILY [facility]; Protocol Last Admin: 02/18/25 08:43 Dose: 5 mg Atorvastatin Calcium (Atorvastatin Calcium 40 Mg Tablet) 40 mg PO DAILY [facility] Last Admin: 02/18/25 08:44 Dose: 40 mg Brexpiprazole (Brexpiprazole 2 Mg Tablet) 2 mg PO DAILY [facility] Buspirone HCl (Buspirone Hcl 5 Mg Tablet) 15 mg PO TID [facility] Last Admin: 02/18/25 20:33 Dose: 15 mg Carbamazepine (Carbamazepine 200 Mg Tablet) 200 mg PO BID [facility] Last Admin: 02/18/25 20:36 Dose: 200 mg Celecoxib (Celecoxib 100 Mg Capsule) 100 mg PO BID [facility] Last Admin: 02/18/25 20:36 Dose: 100 mg Diazepam (Diazepam 2 Mg Tablet) 2 mg PO TID [facility] Last Admin: 02/18/25 20:36 Dose: 2 mg Divalproex Sodium (Divalproex Sodium 500 Mg Tablet.Dr) 500 mg PO DAILY [facility] Escitalopram Oxalate (Escitalopram Oxalate 10 Mg Tablet) 10 mg PO DAILY [facility] Last Admin: 02/18/25 08:43 Dose: 10 mg Fluticasone Propionate (Fluticasone Propionate Nasal 16 Gm [place]) 2 spray NOSTRIL-B BID [facility] Last Admin: 02/18/25 20:32 Dose: 2 spray Gabapentin (Gabapentin 300 Mg Capsule) 300 mg PO TID [facility] Last Admin: 02/18/25 20:34 Dose: 300 mg Lactulose (Lactulose 20 Gm/30 Ml Solution) 20 gm PO TID [facility] Last Admin: 02/18/25 20:32 Dose: 20 gm Letrozole (Letrozole 2.5 Mg Tablet) 2.5 mg PO DAILY [facility] Last Admin: 02/18/25 08:45 Dose: 2.5 mg Lidocaine (Lidocaine 4 % Patch Adh..Patch) 2 patch TRANSDERMA DAILY [facility]; Protocol Last Admin: 02/18/25 08:37 Dose: 2 patch Magnesium Hydroxide (Milk Of Magnesia 30 Ml Oral.Susp) 30 ml PO DAILY PRN PRN Reason: Constipation Last Admin: 02/18/25 11:12 Dose: 30 ml Mirabegron (Mirabegron 25 Mg Tab.Er.24h) 25 mg PO DAILY [facility] Last Admin: 02/18/25 08:45 Dose: 25 mg Nicotine (Nicotine 21 Mg Patch.Td24) 21 mg TRANSDERMA DAILY PRN PRN Reason: smoking cessation Nicotine Polacrilex (Nicotine Polacrilex 2 Mg Gum) 4 mg BUCCAL Q2H PRN PRN Reason: Nicotine Cravings Nystatin (Nystatin Powder 15 Gm Bottle) 1 appl TOPICAL BID [facility]; Protocol Last Admin: 02/18/25 20:31 Dose: 1 appl Olanzapine (Olanzapine 10 Mg Tablet) 10 mg PO BEDTIME [facility] Last Admin: 02/18/25 20:35 Dose: 10 mg Olanzapine (Olanzapine 5 Mg Tablet) 5 mg PO TID PRN PRN Reason: agitation/severe anxiety Last Admin: 02/18/25 02:39 Dose: 5 mg Omeprazole (Omeprazole 20 Mg Capsule.Dr) 20 mg PO DAILY@0630 [facility] Last Admin: 02/19/25 05:10 Dose: 20 mg Rivaroxaban (Rivaroxaban 10 Mg Tablet) 10 mg PO DAILY [facility] Last Admin: 02/18/25 08:44 Dose: 10 mg Senna/Docusate Sodium (Sennosides/Docusate Sodium Tablet) 1 tab PO BID [facility] Last Admin: 02/18/25 20:32 Dose: 1 tab Simethicone (Simethicone 80 Mg Tab.Chew) 80 mg PO QIDWMHS PRN PRN Reason: Gas Last Admin: 02/18/25 16:51 Dose: 80 mg Sumatriptan Succinate (Sumatriptan Succinate 50 Mg Tablet) 50 mg PO DAILY MRX1 PRN PRN Reason: Migraine Headache Last Admin: 02/18/25 23:15 Dose: 50 mg Tramadol HCl (Tramadol Hcl 50 Mg Tablet) 50 mg PO BID PRN PRN Reason: Pain, Severe (Pain Scale 7-10) Last Admin: 02/19/25 05:11 Dose: 50 mg Trazodone HCl (Trazodone Hcl 100 Mg Tablet) 100 mg PO ONCE PRN PRN Reason: Insomnia Last Admin: 02/14/25 23:13 Dose: 100 mg Trazodone HCl (Trazodone Hcl 100 Mg Tablet) 200 mg PO BEDTIME PRN PRN Reason: Insomnia Last Admin: 02/18/25 20:34 Dose: 200 mg Allergies Allergies Allergy/AdvReac Type Severity Reaction Status Date / Time morphine AdvReac Severe Rash Verified 02/12/25 04:00 codeine AdvReac Intermediate Rash Verified 02/12/25 04:01 theophylline AdvReac Intermediate Palpitation Verified 02/12/25 04:01 s thiothixene AdvReac Intermediate Unknown Verified 02/12/25 04:00 propoxyphene AdvReac Unknown Unknown Verified 02/12/25 03:59 Assessment & Plan Assessment & Plan (1) Schizoaffective disorder, bipolar type: Status: Acute Code(s): F25.0 - Schizoaffective disorder, bipolar type Plan Ms. De La Fuente is a 74 year-old woman who self presented to [facility] reporting increase depression and suicidal ideation with plan to cut her wrist with a razor. She reported suicidal thoughts in context of having pain related to migraine and fear that she may have HIV due to exposure more than 10 years ago. HIV test was non reactive. On the unit, pt presents somatically preoccupied with some degree of delusions such as when she reports feeling that tylenol is causing swelling of her brain which she then says turns into suicidal thoughts and urges to cut her wrist. She also reports hearing some voices and seeing images in white and black and sometimes commercials in her mind. She displays an asydentic thinking in that causal link between ideas is not related or is less logically connected. On the surface, may not seem as overt delusional process given that most of her concerns related to suicidal thoughts are somatic but as one follows her train of thought is more clear the disconnect. Pending collateral information from sister and outpatient providers. She does have resting tremor, suspect more susceptible to movement disorder side effects, especially with high potency antipsychotics. She is currently on olanzapine 10mg po qhs. We did discuss trial of rexulti 1mg po daily which patient was in agreement to try. We also discussed adding low dose diazepam 2mg po TID. PLAN 02/14 continue depakote 1000mg po BID. continue rexulti 1mg po daily, continue olanzapine, may switch to rexulti if effective. 02/15 continue tx 02/16 continue tx. 02/17 increase oxygenation need, seen by hospitalist, no infection nor exacerbation of COPD. monitor ammonia, continues to be elevated higher today at 68. scheduled lactulose. continue to monitor, suspect this is related to depakote. may consider changing to carbamazepine. 02/18 lower depakote to 500mg po daily, start carbamazepine 200mg po BID, increase lactulose to 20mg TID. monitor ammonia. Pt reported leg swelling but none noted on exam. no pitting edema. No SI/HI. 02/19 continue tx. repeat ammonia levels. Reason for continued inpatient stay Substantial Risk for: inability to function Time Spent With Patient Time: Total time managing care of this patient today ____ minutes.
[2025-02-19 08:53] VITALS: BP 140/58; PULSE 77; RESP 15; TEMP 36.9; O2SAT 92
[2025-02-19] MEDS: Lidocaine 4 % Patch ADH..PATCH 2 PATCH TRANSDERMA (08:57)
[2025-02-19] MEDS: Rivaroxaban 10 MG TABLET PO (08:58)
[2025-02-19] MEDS: Gabapentin 300 MG CAPSULE PO ×3 (08:58→20:17)
[2025-02-19] MEDS: diazePAM 2 MG TABLET PO (08:58)
[2025-02-19] MEDS: Mirabegron 25 MG TAB.ER.24H PO (08:58)
[2025-02-19] MEDS: Lactulose 20 GM/30 ML SOLUTION PO ×3 (08:59→20:17)
[2025-02-19] MEDS: Sennosides/Docusate Sodium TABLET 1 TAB PO ×2 (08:59→20:19)
[2025-02-19] MEDS: busPIRone HCl 5 MG TABLET 15 MG PO ×3 (08:59→20:20)
[2025-02-19] MEDS: Letrozole 2.5 MG TABLET PO (08:59)
[2025-02-19] MEDS: amLODIPine Besylate 5 MG TABLET PO (08:59)
[2025-02-19] MEDS: carBAMazepine 200 MG TABLET PO ×2 (08:59→20:19)
[2025-02-19] MEDS: Fluticasone Propionate Nasal 16 GM SPRAY 2 SPRAY NOSTRIL-B ×2 (08:59→20:17)
[2025-02-19] MEDS: Escitalopram Oxalate 10 MG TABLET PO (09:00)
[2025-02-19] MEDS: Divalproex Sodium 500 MG TABLET.DR PO (09:00)
[2025-02-19] MEDS: Celecoxib 100 MG CAPSULE PO ×2 (09:00→20:18)
[2025-02-19] MEDS: Atorvastatin Calcium 40 MG TABLET PO (09:00)
[2025-02-19 09:12] LABS: Ammonia 47 umol/L (13-55)
[2025-02-19 10:16] VITALS: BMI 30.3
[2025-02-19] MEDS: Brexpiprazole 2 MG TABLET PO (10:23)
[2025-02-19] MEDS: Simethicone 80 MG TAB.CHEW PO ×2 (11:12→17:06)
[2025-02-19] MEDS: diazePAM 2 MG TABLET 1 MG PO ×2 (15:07→20:18)
[2025-02-19] MEDS: Nystatin Powder 15 GM BOTTLE 1 APPL TOPICAL (20:17)
[2025-02-19] MEDS: traZODone HCL 50 MG TABLET 150 MG PO (20:18)
[2025-02-19] MEDS: OLANZapine 10 MG TABLET PO (20:19)
[2025-02-20] MEDS: traZODone HCL 50 MG TABLET PO (03:05)
[2025-02-20] MEDS: Omeprazole 20 MG CAPSULE.DR PO (05:54)
[2025-02-20] MEDS: traMADoL HCL 50 MG TABLET PO ×3 (06:10→23:21)
[2025-02-20 08:22] VITALS: BP 128/60; PULSE 76; RESP 15; TEMP 37; O2SAT 97
[2025-02-20] MEDS: Letrozole 2.5 MG TABLET PO (08:25)
[2025-02-20] MEDS: Fluticasone Propionate Nasal 16 GM SPRAY 2 SPRAY NOSTRIL-B ×2 (08:25→21:04)
[2025-02-20] MEDS: busPIRone HCl 5 MG TABLET 15 MG PO ×3 (08:25→20:54)
[2025-02-20] MEDS: Atorvastatin Calcium 40 MG TABLET PO (08:26)
[2025-02-20] MEDS: Escitalopram Oxalate 10 MG TABLET PO (08:26)
[2025-02-20] MEDS: Divalproex Sodium 500 MG TABLET.DR PO (08:26)
[2025-02-20] MEDS: amLODIPine Besylate 5 MG TABLET PO (08:26)
[2025-02-20] MEDS: Mirabegron 25 MG TAB.ER.24H PO (08:26)
[2025-02-20] MEDS: diazePAM 2 MG TABLET 1 MG PO ×3 (08:26→20:52)
[2025-02-20] MEDS: Celecoxib 100 MG CAPSULE PO ×2 (08:26→20:51)
[2025-02-20] MEDS: carBAMazepine 200 MG TABLET PO ×2 (08:26→20:52)
[2025-02-20] MEDS: Brexpiprazole 2 MG TABLET PO (08:26)
[2025-02-20] MEDS: Rivaroxaban 10 MG TABLET PO (08:27)
[2025-02-20] MEDS: Sennosides/Docusate Sodium TABLET 1 TAB PO ×2 (08:27→20:52)
[2025-02-20] MEDS: Gabapentin 300 MG CAPSULE PO ×3 (08:27→20:52)
[2025-02-20] MEDS: Lactulose 20 GM/30 ML SOLUTION PO (08:42)
--- NOTE | 2025-02-20 09:32 | P.EN_ITS ---
Event Note Date of Service: 02/20/25 Event Note: Pt is a 74-year-old female with a PMH significant for COPD on 2 L home O2 p.r.n., hx of breast cancer, HTN, HLD, hypothyroidism, GERD, chronic back pain, osteoarthritis, dementia, anxiety, and schizoaffective disorder bipolar type who is admitted to [facility] with hospitalist consult for bilateral lower leg edema and bilateral knee pain. Pt seen and evaluated on the unit where she is tearful and complaining of right knee pain. Pt reports she ?just want to walk without pain?. Reports pain has been ongoing for the past 3 years. Prior to that pt reports was wheelchair-bound for some time until had a ?procedure? at [place] where 2.5 L of fluid was removed from her legs. Pt states since then has been able to ambulate with a walker, though has become increasingly painful. Complains that at [facility] they would not allow her to get either a rig ht knee replacement or cortisone shots. Pt denies shortness or breath or difficulty breathing. No cough. No known hx of CHF. Physical exam reveals 2+ bilateral pitting edema otherwise benign. Bilateral knees and calves nonpainful to palpation. Strength symmetric and 4/5 of lower extremities bilaterally. Passive and active ROM preserved of knees bilaterally. Lungs CTA. Plan: Knee pain appears chronic, likely secondary to arthritis Pt with hx of bilateral lower extremity edema, likely secondary to venous insufficiency in the setting of reduced mobility; no hx of CHF, denies SOB/BARNARD Continue Celebrex Will treat with lidocaine patches to right knee We will give short course of Lasix 20 mg p.o. x5 days Follow up BMP Time Spent With Patient Time: Total time managing care of this patient today ____ minutes.
--- NOTE | 2025-02-20 10:05 | P.PNPSI_ITS ---
Subjective Subjective Date of Service: 02/20/25 Reason For Visit: Schizoaffective disorder Subjective Notes: Conditional Voluntary Interim History: Pt slept 7hrs. On 2L oxygen, maintain between 90-93% Pt reports feeling better, had BM. She denies SI or AH/VH. She reports feeling tired, having bilat knee pain. reports current medications not helping. Pt reports she woke up at night. She requests trazodone 50mg in addition to 200mg qhs- she is not using o2 at night and suspect also has sleep apnea. Review of Systems Review of Systems Negative except for that which is stated in the HPI. Yes all other systems are reviewed and are negative Mental Status Exam Mental Status Exam Narrative: Appearance: wearing hospital gown, fair hygiene, in NAD Behavior: cooperative, friendly Psychomotor: resting tremors, more pronounced on right side Speech: clear, normal rate/rhythm/volume, spontaneous TP: somewhat disorganized at times TC: focused on pain and this causing suicidal thought Mood: anxious Affect: calmer, but somatically preoccupied SI: passive HI: none VH/AH: appears internally preoccupied Delusions: she is not fully forthcoming with extend of delusional content, but suspect a combination of somatic delusions triggering changes in mood and suicidality. Insight/judgment: impaired x 2. Memory/cog: alert, oriented to place, month, year and situation. Diagnostics Vital Signs (24Hr): Vital Signs - 24 hr 02/20/25 08:22 Temperature 98.6 F Pulse Rate 76 Respiratory Rate 15 Blood Pressure 128/60 Pulse Oximetry 97 Oxygen Delivery Method Room Air Oxygen Flow Rate 4 BMI result Body Mass Index 30.3 Labs 02/17/25 09:16 02/17/25 09:16 Labs: Laboratory Results - last 48 hr 02/18/25 02/19/25 11:38 08:49 Ammonia 59 H 47 Imaging Radiology Impressions: ITS Impressions Chest X-Ray 02/17/25 09:00 IMPRESSION: There is bibasilar atelectasis. No acute process seen. Electronically signed by: Noah Greene MD 02/17/2025 09:34 AM EDT Medications Medications Current Medications Acetaminophen (Acetaminophen 325 Mg Tablet) 650 mg PO Q6H PRN PRN Reason: Headache/Pain, Scale 1-10 Last Admin: 02/12/25 06:14 Dose: 650 mg Al Hydroxide/Mg Hydroxide (Magnesium Hydrox/Alum Hydrox 30 Ml Oral.Susp) 30 ml PO Q6H PRN PRN Reason: Heartburn/Nausea Last Admin: 02/13/25 04:41 Dose: 30 ml Albuterol Sulfate (Albuterol Sulfate 90 Mcg 8 Gm Inhaler) 2 puff INHALE Q4H PRN PRN Reason: Shortness Of Breath Or Wheezing Last Admin: 02/17/25 08:27 Dose: 2 puff Amlodipine Besylate (Amlodipine Besylate 5 Mg Tablet) 5 mg PO DAILY [facility]; Protocol Last Admin: 02/20/25 08:26 Dose: 5 mg Atorvastatin Calcium (Atorvastatin Calcium 40 Mg Tablet) 40 mg PO DAILY [facility] Last Admin: 02/20/25 08:26 Dose: 40 mg Brexpiprazole (Brexpiprazole 2 Mg Tablet) 2 mg PO DAILY [facility] Last Admin: 02/20/25 08:26 Dose: 2 mg Buspirone HCl (Buspirone Hcl 5 Mg Tablet) 15 mg PO TID [facility] Last Admin: 02/20/25 08:25 Dose: 15 mg Capsaicin (Capsaicin 0.025% Cream 60 Gm Tube) 1 appl TOPICAL QID PRN; Protocol PRN Reason: knee pain Carbamazepine (Carbamazepine 200 Mg Tablet) 200 mg PO BID [facility] Last Admin: 02/20/25 08:26 Dose: 200 mg Celecoxib (Celecoxib 100 Mg Capsule) 100 mg PO BID [facility] Last Admin: 02/20/25 08:26 Dose: 100 mg Diazepam (Diazepam 2 Mg Tablet) 1 mg PO TID [facility] Last Admin: 02/20/25 08:26 Dose: 1 mg Divalproex Sodium (Divalproex Sodium 500 Mg Tablet.Dr) 500 mg PO DAILY [facility] Last Admin: 02/20/25 08:26 Dose: 500 mg Escitalopram Oxalate (Escitalopram Oxalate 10 Mg Tablet) 10 mg PO DAILY [facility] Last Admin: 02/20/25 08:26 Dose: 10 mg Fluticasone Propionate (Fluticasone Propionate Nasal 16 Gm [place]) 2 spray NOSTRIL-B BID [facility] Last Admin: 02/20/25 08:25 Dose: 2 spray Furosemide (Furosemide 20 Mg Tablet) 20 mg PO DAILY [facility]; Protocol Stop: 02/25/25 09:44 Gabapentin (Gabapentin 300 Mg Capsule) 300 mg PO TID [facility] Last Admin: 02/20/25 08:27 Dose: 300 mg Lactulose (Lactulose 20 Gm/30 Ml Solution) 20 gm PO TID [facility] Last Admin: 02/20/25 08:42 Dose: 20 gm Letrozole (Letrozole 2.5 Mg Tablet) 2.5 mg PO DAILY [facility] Last Admin: 02/20/25 08:25 Dose: 2.5 mg Lidocaine (Lidocaine 4 % Patch Adh..Patch) 1 patch TRANSDERMA DAILY PRN; Protocol PRN Reason: Knee pain Magnesium Hydroxide (Milk Of Magnesia 30 Ml Oral.Susp) 30 ml PO DAILY PRN PRN Reason: Constipation Last Admin: 02/18/25 11:12 Dose: 30 ml Mirabegron (Mirabegron 25 Mg Tab.Er.24h) 25 mg PO DAILY [facility] Last Admin: 02/20/25 08:26 Dose: 25 mg Nicotine (Nicotine 21 Mg Patch.Td24) 21 mg TRANSDERMA DAILY PRN PRN Reason: smoking cessation Nicotine Polacrilex (Nicotine Polacrilex 2 Mg Gum) 4 mg BUCCAL Q2H PRN PRN Reason: Nicotine Cravings Nystatin (Nystatin Powder 15 Gm Bottle) 1 appl TOPICAL BID [facility]; Protocol Last Admin: 02/19/25 20:17 Dose: 1 appl Olanzapine (Olanzapine 10 Mg Tablet) 10 mg PO BEDTIME [facility] Last Admin: 02/19/25 20:19 Dose: 10 mg Olanzapine (Olanzapine 5 Mg Tablet) 5 mg PO TID PRN PRN Reason: agitation/severe anxiety Last Admin: 02/18/25 02:39 Dose: 5 mg Omeprazole (Omeprazole 20 Mg Capsule.Dr) 20 mg PO DAILY@0630 [facility] Last Admin: 02/20/25 05:54 Dose: 20 mg Rivaroxaban (Rivaroxaban 10 Mg Tablet) 10 mg PO DAILY [facility] Last Admin: 02/20/25 08:27 Dose: 10 mg Senna/Docusate Sodium (Sennosides/Docusate Sodium Tablet) 1 tab PO BID [facility] Last Admin: 02/20/25 08:27 Dose: 1 tab Simethicone (Simethicone 80 Mg Tab.Chew) 80 mg PO QIDWMHS PRN PRN Reason: Gas Last Admin: 02/19/25 17:06 Dose: 80 mg Sumatriptan Succinate (Sumatriptan Succinate 50 Mg Tablet) 50 mg PO DAILY MRX1 PRN PRN Reason: Migraine Headache Last Admin: 02/18/25 23:15 Dose: 50 mg Tramadol HCl (Tramadol Hcl 50 Mg Tablet) 50 mg PO TID PRN PRN Reason: Pain, Severe (Pain Scale 7-10) Last Admin: 02/20/25 06:10 Dose: 50 mg Trazodone HCl (Trazodone Hcl 50 Mg Tablet) 150 mg PO BEDTIME [facility] Last Admin: 02/19/25 20:18 Dose: 150 mg Trazodone HCl (Trazodone Hcl 50 Mg Tablet) 50 mg PO BEDTIME PRN PRN Reason: sleep Last Admin: 02/20/25 03:05 Dose: 50 mg Allergies Allergies Allergy/AdvReac Type Severity Reaction Status Date / Time morphine AdvReac Severe Rash Verified 02/12/25 04:00 codeine AdvReac Intermediate Rash Verified 02/12/25 04:01 theophylline AdvReac Intermediate Palpitation Verified 02/12/25 04:01 s thiothixene AdvReac Intermediate Unknown Verified 02/12/25 04:00 propoxyphene AdvReac Unknown Unknown Verified 02/12/25 03:59 Assessment & Plan Assessment & Plan (1) Schizoaffective disorder, bipolar type: Status: Acute Code(s): F25.0 - Schizoaffective disorder, bipolar type Plan Ms. De La Fuente is a 74 year-old woman who self presented to [facility] reporting increase depression and suicidal ideation with plan to cut her wrist with a razor. She reported suicidal thoughts in context of having pain related to migraine and fear that she may have HIV due to exposure more than 10 years ago. HIV test was non reactive. On the unit, pt presents somatically preoccupied with some degree of delusions such as when she reports feeling that tylenol is causing swelling of her brain which she then says turns into suicidal thoughts and urges to cut her wrist. She also reports hearing some voices and seeing images in white and black and sometimes commercials in her mind. She displays an asydentic thinking in that causal link between ideas is not related or is less logically connected. On the surface, may not seem as overt delusional process given that most of her concerns related to suicidal thoughts are somatic but as one follows her train of thought is more clear the disconnect. Pending collateral information from sister and outpatient providers. She does have resting tremor, suspect more susceptible to movement disorder side effects, especially with high potency antipsychotics. She is currently on olanzapine 10mg po qhs. We did discuss trial of rexulti 1mg po daily which patient was in agreement to try. We also discussed adding low dose diazepam 2mg po TID. PLAN 02/14 continue depakote 1000mg po BID. continue rexulti 1mg po daily, continue olanzapine, may switch to rexulti if effective. 02/15 continue tx 02/16 continue tx. 02/17 increase oxygenation need, seen by hospitalist, no infection nor exacerbation of COPD. monitor ammonia, continues to be elevated higher today at 68. scheduled lactulose. continue to monitor, suspect this is related to depakote. may consider changing to carbamazepine. 02/18 lower depakote to 500mg po daily, start carbamazepine 200mg po BID, increase lactulose to 20mg TID. monitor ammonia. Pt reported leg swelling but none noted on exam. no pitting edema. No SI/HI. 02/19 continue tx. repeat ammonia levels. 02/20 ammonia level, wnl. continue carbamazepine, d/c depakote. Reason for continued inpatient stay Substantial Risk for: inability to function Time Spent With Patient Time: Total time managing care of this patient today ____ minutes.
[2025-02-20 10:22] VITALS: BP 128/73
[2025-02-20] MEDS: Furosemide 20 MG TABLET PO (10:22)
[2025-02-20] MEDS: Nystatin Powder 15 GM BOTTLE 1 APPL TOPICAL (13:47)
[2025-02-20 20:00] VITALS: BP 108/63; PULSE 77; RESP 16; TEMP 36.3; O2SAT 91
[2025-02-20] MEDS: OLANZapine 10 MG TABLET PO (20:53)
[2025-02-20] MEDS: Milk of Magnesia 30 ML ORAL.SUSP PO (20:56)
[2025-02-20] MEDS: traZODone HCL 50 MG TABLET 150 MG PO (21:02)
[2025-02-21] MEDS: Omeprazole 20 MG CAPSULE.DR PO (05:59)
[2025-02-21 08:57] VITALS: BP 141/62; PULSE 72; RESP 16; TEMP 36.7; O2SAT 93
[2025-02-21] MEDS: Fluticasone Propionate Nasal 16 GM SPRAY 2 SPRAY NOSTRIL-B ×2 (08:58→20:25)
[2025-02-21] MEDS: Nystatin Powder 15 GM BOTTLE 1 APPL TOPICAL ×2 (08:58→20:25)
[2025-02-21] MEDS: Furosemide 20 MG TABLET PO (08:59)
[2025-02-21] MEDS: Letrozole 2.5 MG TABLET PO (08:59)
[2025-02-21] MEDS: Rivaroxaban 10 MG TABLET PO (08:59)
[2025-02-21] MEDS: Sennosides/Docusate Sodium TABLET 1 TAB PO ×2 (08:59→20:27)
[2025-02-21] MEDS: diazePAM 2 MG TABLET 1 MG PO ×3 (08:59→20:26)
[2025-02-21] MEDS: Divalproex Sodium 500 MG TABLET.DR PO (09:00)
[2025-02-21] MEDS: carBAMazepine 200 MG TABLET PO ×2 (09:00→20:28)
[2025-02-21] MEDS: Brexpiprazole 2 MG TABLET PO (09:00)
[2025-02-21] MEDS: Mirabegron 25 MG TAB.ER.24H PO (09:00)
[2025-02-21] MEDS: amLODIPine Besylate 5 MG TABLET PO (09:00)
[2025-02-21] MEDS: Gabapentin 300 MG CAPSULE PO ×3 (09:00→20:27)
[2025-02-21] MEDS: Escitalopram Oxalate 10 MG TABLET PO (09:00)
[2025-02-21] MEDS: Celecoxib 100 MG CAPSULE PO ×2 (09:00→20:28)
[2025-02-21] MEDS: Atorvastatin Calcium 40 MG TABLET PO (09:00)
[2025-02-21] MEDS: busPIRone HCl 5 MG TABLET 15 MG PO ×3 (09:00→20:27)
[2025-02-21] MEDS: traMADoL HCL 50 MG TABLET PO ×2 (09:00→17:03)
[2025-02-21] MEDS: OLANZapine 5 MG TABLET PO (13:00)
--- NOTE | 2025-02-21 13:39 | HO.PSYCHPN ---
Subjective Subjective Date of Service: 02/21/25 Reason For Visit: Schizoaffective disorder Interim History: Pt slept late and didn't get out of her room until lunch time. Patient sometimes takes the O2 off and needs to be reminded to put it back on. She feels more confused and weak at those times. Overall patient reports feeling better. She denies SI or AH/VH. Review of Systems Review of Systems Negative except for that which is stated in the HPI. Yes all other systems are reviewed and are negative Mental Status Exam Mental Status Exam Narrative: Appearance: wearing hospital gown, fair hygiene, in NAD Behavior: cooperative, friendly Psychomotor: resting tremors, more pronounced on right side Speech: clear, normal rate/rhythm/volume, spontaneous TP: somewhat disorganized at times TC: focused on pain and this causing suicidal thought Mood: anxious Affect: calmer, but somatically preoccupied SI: passive HI: none VH/AH: appears internally preoccupied Delusions: she is not fully forthcoming with extend of delusional content, but suspect a combination of somatic delusions triggering changes in mood and suicidality. Insight/judgment: impaired x 2. Memory/cog: alert, oriented to place, month, year and situation. Diagnostics Vital Signs (24Hr): Vital Signs - 24 hr 02/20/25 20:00 02/21/25 08:57 Temperature 97.3 F 98.1 F Pulse Rate 77 72 Respiratory Rate 16 16 Blood Pressure 108/63 141/62 H Pulse Oximetry 91 L 93 Oxygen Delivery Method Nasal Cannula Nasal Cannula Oxygen Flow Rate 2 2 BMI result Body Mass Index 30.3 Labs 02/17/25 09:16 02/17/25 09:16 Imaging Radiology Impressions: ITS Impressions Chest X-Ray 02/17/25 09:00 IMPRESSION: There is bibasilar atelectasis. No acute process seen. Electronically signed by: Noah Greene MD 02/17/2025 09:34 AM EDT Medications Medications Current Medications Acetaminophen (Acetaminophen 325 Mg Tablet) 650 mg PO Q6H PRN PRN Reason: Headache/Pain, Scale 1-10 Last Admin: 02/12/25 06:14 Dose: 650 mg Al Hydroxide/Mg Hydroxide (Magnesium Hydrox/Alum Hydrox 30 Ml Oral.Susp) 30 ml PO Q6H PRN PRN Reason: Heartburn/Nausea Last Admin: 02/13/25 04:41 Dose: 30 ml Albuterol Sulfate (Albuterol Sulfate 90 Mcg 8 Gm Inhaler) 2 puff INHALE Q4H PRN PRN Reason: Shortness Of Breath Or Wheezing Last Admin: 02/17/25 08:27 Dose: 2 puff Amlodipine Besylate (Amlodipine Besylate 5 Mg Tablet) 5 mg PO DAILY [facility]; Protocol Last Admin: 02/21/25 09:00 Dose: 5 mg Atorvastatin Calcium (Atorvastatin Calcium 40 Mg Tablet) 40 mg PO DAILY [facility] Last Admin: 02/21/25 09:00 Dose: 40 mg Brexpiprazole (Brexpiprazole 2 Mg Tablet) 2 mg PO DAILY [facility] Last Admin: 02/21/25 09:00 Dose: 2 mg Buspirone HCl (Buspirone Hcl 5 Mg Tablet) 15 mg PO TID [facility] Last Admin: 02/21/25 09:00 Dose: 15 mg Capsaicin (Capsaicin 0.025% Cream 60 Gm Tube) 1 appl TOPICAL QID PRN; Protocol PRN Reason: knee pain Carbamazepine (Carbamazepine 200 Mg Tablet) 200 mg PO BID [facility] Last Admin: 02/21/25 09:00 Dose: 200 mg Celecoxib (Celecoxib 100 Mg Capsule) 100 mg PO BID [facility] Last Admin: 02/21/25 09:00 Dose: 100 mg Diazepam (Diazepam 2 Mg Tablet) 1 mg PO TID [facility] Last Admin: 02/21/25 08:59 Dose: 1 mg Divalproex Sodium (Divalproex Sodium 500 Mg Tablet.Dr) 500 mg PO DAILY [facility] Last Admin: 02/21/25 09:00 Dose: 500 mg Escitalopram Oxalate (Escitalopram Oxalate 10 Mg Tablet) 10 mg PO DAILY [facility] Last Admin: 02/21/25 09:00 Dose: 10 mg Fluticasone Propionate (Fluticasone Propionate Nasal 16 Gm [place]) 2 spray NOSTRIL-B BID [facility] Last Admin: 02/21/25 08:58 Dose: 2 spray Furosemide (Furosemide 20 Mg Tablet) 20 mg PO DAILY [facility]; Protocol Stop: 02/25/25 09:44 Last Admin: 02/21/25 08:59 Dose: 20 mg Gabapentin (Gabapentin 300 Mg Capsule) 300 mg PO TID [facility] Last Admin: 02/21/25 09:00 Dose: 300 mg Letrozole (Letrozole 2.5 Mg Tablet) 2.5 mg PO DAILY [facility] Last Admin: 02/21/25 08:59 Dose: 2.5 mg Lidocaine (Lidocaine 4 % Patch Adh..Patch) 1 patch TRANSDERMA DAILY PRN; Protocol PRN Reason: Knee pain Magnesium Hydroxide (Milk Of Magnesia 30 Ml Oral.Susp) 30 ml PO DAILY PRN PRN Reason: Constipation Last Admin: 02/20/25 20:56 Dose: 30 ml Mirabegron (Mirabegron 25 Mg Tab.Er.24h) 25 mg PO DAILY [facility] Last Admin: 02/21/25 09:00 Dose: 25 mg Nicotine (Nicotine 21 Mg Patch.Td24) 21 mg TRANSDERMA DAILY PRN PRN Reason: smoking cessation Nicotine Polacrilex (Nicotine Polacrilex 2 Mg Gum) 4 mg BUCCAL Q2H PRN PRN Reason: Nicotine Cravings Nystatin (Nystatin Powder 15 Gm Bottle) 1 appl TOPICAL BID [facility]; Protocol Last Admin: 02/21/25 08:58 Dose: 1 appl Olanzapine (Olanzapine 10 Mg Tablet) 10 mg PO BEDTIME [facility] Last Admin: 02/20/25 20:53 Dose: 10 mg Olanzapine (Olanzapine 5 Mg Tablet) 5 mg PO TID PRN PRN Reason: agitation/severe anxiety Last Admin: 02/21/25 13:00 Dose: 5 mg Omeprazole (Omeprazole 20 Mg Capsule.Dr) 20 mg PO DAILY@0630 [facility] Last Admin: 02/21/25 05:59 Dose: 20 mg Rivaroxaban (Rivaroxaban 10 Mg Tablet) 10 mg PO DAILY [facility] Last Admin: 02/21/25 08:59 Dose: 10 mg Senna/Docusate Sodium (Sennosides/Docusate Sodium Tablet) 1 tab PO BID [facility] Last Admin: 02/21/25 08:59 Dose: 1 tab Simethicone (Simethicone 80 Mg Tab.Chew) 80 mg PO QIDWMHS PRN PRN Reason: Gas Last Admin: 02/19/25 17:06 Dose: 80 mg Sumatriptan Succinate (Sumatriptan Succinate 50 Mg Tablet) 50 mg PO DAILY MRX1 PRN PRN Reason: Migraine Headache Last Admin: 02/18/25 23:15 Dose: 50 mg Tramadol HCl (Tramadol Hcl 50 Mg Tablet) 50 mg PO TID PRN PRN Reason: Pain, Severe (Pain Scale 7-10) Last Admin: 02/21/25 09:00 Dose: 50 mg Trazodone HCl (Trazodone Hcl 50 Mg Tablet) 150 mg PO BEDTIME [facility] Last Admin: 02/20/25 21:02 Dose: 150 mg Trazodone HCl (Trazodone Hcl 50 Mg Tablet) 50 mg PO BEDTIME PRN PRN Reason: sleep Last Admin: 02/20/25 03:05 Dose: 50 mg Allergies Allergies Allergy/AdvReac Type Severity Reaction Status Date / Time morphine AdvReac Severe Rash Verified 02/12/25 04:00 codeine AdvReac Intermediate Rash Verified 02/12/25 04:01 theophylline AdvReac Intermediate Palpitation Verified 02/12/25 04:01 s thiothixene AdvReac Intermediate Unknown Verified 02/12/25 04:00 propoxyphene AdvReac Unknown Unknown Verified 02/12/25 03:59 Assessment & Plan Assessment & Plan (1) Schizoaffective disorder, bipolar type: Status: Acute Code(s): F25.0 - Schizoaffective disorder, bipolar type Plan Ms. De La Fuente is a 74 year-old woman who self presented to [facility] reporting increase depression and suicidal ideation with plan to cut her wrist with a razor. She reported suicidal thoughts in context of having pain related to migraine and fear that she may have HIV due to exposure more than 10 years ago. HIV test was non reactive. On the unit, pt presents somatically preoccupied with some degree of delusions such as when she reports feeling that tylenol is causing swelling of her brain which she then says turns into suicidal thoughts and urges to cut her wrist. She also reports hearing some voices and seeing images in white and black and sometimes commercials in her mind. She displays an asydentic thinking in that causal link between ideas is not related or is less logically connected. On the surface, may not seem as overt delusional process given that most of her concerns related to suicidal thoughts are somatic but as one follows her train of thought is more clear the disconnect. Pending collateral information from sister and outpatient providers. She does have resting tremor, suspect more susceptible to movement disorder side effects, especially with high potency antipsychotics. She is currently on olanzapine 10mg po qhs. We did discuss trial of rexulti 1mg po daily which patient was in agreement to try. We also discussed adding low dose diazepam 2mg po TID. PLAN 02/14 continue depakote 1000mg po BID. continue rexulti 1mg po daily, continue olanzapine, may switch to rexulti if effective. 02/15 continue tx 02/16 continue tx. 02/17 increase oxygenation need, seen by hospitalist, no infection nor exacerbation of COPD. monitor ammonia, continues to be elevated higher today at 68. scheduled lactulose. continue to monitor, suspect this is related to depakote. may consider changing to carbamazepine. 02/18 lower depakote to 500mg po daily, start carbamazepine 200mg po BID, increase lactulose to 20mg TID. monitor ammonia. Pt reported leg swelling but none noted on exam. no pitting edema. No SI/HI. 02/19 continue tx. repeat ammonia levels. 02/20 ammonia level, wnl. continue carbamazepine, d/c depakote. 02/21: continue current management and treatment plan. Reason for continued inpatient stay Substantial Risk for: inability to function, rapid decompensation and med/psych decompensation Time Spent With Patient Time: Total time managing care of this patient today ____ minutes.
[2025-02-21] MEDS: Milk of Magnesia 30 ML ORAL.SUSP PO (17:18)
[2025-02-21 19:49] VITALS: BP 114/57; PULSE 80; RESP 15; TEMP 36.5; O2SAT 90
[2025-02-21] MEDS: traZODone HCL 50 MG TABLET 150 MG PO (20:27)
[2025-02-21] MEDS: OLANZapine 10 MG TABLET PO (20:28)
[2025-02-22] MEDS: OLANZapine 5 MG TABLET PO ×4 (01:02→21:35)
[2025-02-22] MEDS: traMADoL HCL 50 MG TABLET PO ×2 (01:04→20:38)
[2025-02-22] MEDS: traZODone HCL 50 MG TABLET PO (02:55)
[2025-02-22] MEDS: Omeprazole 20 MG CAPSULE.DR PO (05:57)
[2025-02-22 08:51] VITALS: BP 133/62; PULSE 72; RESP 16; TEMP 36.2; O2SAT 93
[2025-02-22] MEDS: Sennosides/Docusate Sodium TABLET 1 TAB PO ×2 (08:51→20:39)
[2025-02-22] MEDS: Rivaroxaban 10 MG TABLET PO (08:51)
[2025-02-22] MEDS: Brexpiprazole 2 MG TABLET PO (08:52)
[2025-02-22] MEDS: busPIRone HCl 5 MG TABLET 15 MG PO ×3 (08:52→20:36)
[2025-02-22] MEDS: carBAMazepine 200 MG TABLET PO ×2 (08:52→20:39)
[2025-02-22] MEDS: Atorvastatin Calcium 40 MG TABLET PO (08:52)
[2025-02-22] MEDS: Celecoxib 100 MG CAPSULE PO ×2 (08:53→20:38)
[2025-02-22] MEDS: Escitalopram Oxalate 10 MG TABLET PO (08:53)
[2025-02-22] MEDS: Gabapentin 300 MG CAPSULE PO ×3 (08:53→20:37)
[2025-02-22] MEDS: amLODIPine Besylate 5 MG TABLET PO (08:53)
[2025-02-22] MEDS: Divalproex Sodium 500 MG TABLET.DR PO (08:53)
[2025-02-22] MEDS: Furosemide 20 MG TABLET PO (08:53)
[2025-02-22] MEDS: Letrozole 2.5 MG TABLET PO (08:54)
[2025-02-22] MEDS: Mirabegron 25 MG TAB.ER.24H PO (08:54)
[2025-02-22] MEDS: Fluticasone Propionate Nasal 16 GM SPRAY 2 SPRAY NOSTRIL-B ×2 (09:00→20:35)
[2025-02-22] MEDS: Nystatin Powder 15 GM BOTTLE 1 APPL TOPICAL ×2 (09:00→20:35)
[2025-02-22] MEDS: diazePAM 2 MG TABLET 1 MG PO ×3 (09:05→20:35)
[2025-02-22 12:53] LABS: Hematocrit 33.9 % (37.0-47.0); Hemoglobin 11.7 g/dl (12.0-16.0); Mean Corpuscular HGB Conc 34.5 g/dl (31.0-35.0); Mean Corpuscular Hemoglobin 31.4 pg (27.0-33.0); Mean Corpuscular Volume 90.9 fL (80.0-98.0); Mean Platelet Volume 9.4 fL (9.4-12.3); Platelet Count 186 X10*3/uL (160-400); Red Blood Count 3.73 X10*6/uL (4.20-5.50); Red Cell Distribution Width 12.7 % (11.0-16.0); White Blood Count 5.5 X10*3/uL (4.8-10.8)
--- NOTE | 2025-02-22 14:08 | P.PNPSI_ITS ---
Subjective Subjective Date of Service: 02/22/25 Reason For Visit: Schizoaffective disorder Interim History: Upset her Seroquel was stopped because she says she was sleeping well when she was taking it. Discussed with her she is already on 2 AP medications at this time and wouldn't recommend adding a 3rd. Will defer to primary team. She had red blood per rectum. No abd pain, no diarrhea. Nausea but no vomiting. Looks well. VSS. She had a drop in her Hgb and Hct from 39-34. Ordered a CBC and Discussed with medicine. Medicine recommended repeat HH tomorrow AM and consult GI. Patient sometimes takes the O2 off and needs to be reminded to put it back on. She denies SI or AH/VH. Review of Systems Review of Systems Negative except for that which is stated in the HPI. Yes all other systems are reviewed and are negative Mental Status Exam Mental Status Exam Narrative: Appearance: wearing hospital gown, fair hygiene, in NAD Behavior: cooperative, friendly Psychomotor: resting tremors, more pronounced on right side Speech: clear, normal rate/rhythm/volume, spontaneous TP: somewhat disorganized at times TC: focused on pain and this causing suicidal thought Mood: anxious Affect: calmer, but somatically preoccupied SI: passive HI: none VH/AH: appears internally preoccupied Delusions: she is not fully forthcoming with extend of delusional content, but suspect a combination of somatic delusions triggering changes in mood and suicidality. Insight/judgment: impaired x 2. Memory/cog: alert, oriented to place, month, year and situation. Diagnostics Vital Signs (24Hr): Vital Signs - 24 hr 02/21/25 19:49 02/22/25 08:51 Temperature 97.7 F 97.1 F Pulse Rate 80 72 Respiratory Rate 15 16 Blood Pressure 114/57 L 133/62 Pulse Oximetry 90 L 93 Oxygen Delivery Method Room Air Nasal Cannula Oxygen Flow Rate 2 BMI result Body Mass Index 30.3 Labs 02/22/25 12:48 02/17/25 09:16 Labs: Laboratory Results - last 48 hr 02/22/25 12:48 WBC 5.5 RBC 3.73 L Hgb 11.7 L Hct 33.9 L MCV 90.9 MCH 31.4 MCHC 34.5 RDW 12.7 Plt Count 186 MPV 9.4 Absolute Nucleated RBC 0.000 Nucleated RBC % (auto) 0.0 Imaging Radiology Impressions: ITS Impressions Chest X-Ray 02/17/25 09:00 IMPRESSION: There is bibasilar atelectasis. No acute process seen. Electronically signed by: Noah Greene MD 02/17/2025 09:34 AM EDT RP Medications Medications Current Medications Acetaminophen (Acetaminophen 325 Mg Tablet) 650 mg PO Q6H PRN PRN Reason: Headache/Pain, Scale 1-10 Last Admin: 02/12/25 06:14 Dose: 650 mg Al Hydroxide/Mg Hydroxide (Magnesium Hydrox/Alum Hydrox 30 Ml Oral.Susp) 30 ml PO Q6H PRN PRN Reason: Heartburn/Nausea Last Admin: 02/13/25 04:41 Dose: 30 ml Albuterol Sulfate (Albuterol Sulfate 90 Mcg 8 Gm Inhaler) 2 puff INHALE Q4H PRN PRN Reason: Shortness Of Breath Or Wheezing Last Admin: 02/17/25 08:27 Dose: 2 puff Amlodipine Besylate (Amlodipine Besylate 5 Mg Tablet) 5 mg PO DAILY [facility]; Protocol Last Admin: 02/22/25 08:53 Dose: 5 mg Atorvastatin Calcium (Atorvastatin Calcium 40 Mg Tablet) 40 mg PO DAILY [facility] Last Admin: 02/22/25 08:52 Dose: 40 mg Brexpiprazole (Brexpiprazole 2 Mg Tablet) 2 mg PO DAILY [facility] Last Admin: 02/22/25 08:52 Dose: 2 mg Buspirone HCl (Buspirone Hcl 5 Mg Tablet) 15 mg PO TID [facility] Last Admin: 02/22/25 08:52 Dose: 15 mg Capsaicin (Capsaicin 0.025% Cream 60 Gm Tube) 1 appl TOPICAL QID PRN; Protocol PRN Reason: knee pain Carbamazepine (Carbamazepine 200 Mg Tablet) 200 mg PO BID [facility] Last Admin: 02/22/25 08:52 Dose: 200 mg Celecoxib (Celecoxib 100 Mg Capsule) 100 mg PO BID [facility] Last Admin: 02/22/25 08:53 Dose: 100 mg Diazepam (Diazepam 2 Mg Tablet) 1 mg PO TID [facility] Last Admin: 02/22/25 09:05 Dose: 1 mg Divalproex Sodium (Divalproex Sodium 500 Mg Tablet.Dr) 500 mg PO DAILY [facility] Last Admin: 02/22/25 08:53 Dose: 500 mg Escitalopram Oxalate (Escitalopram Oxalate 10 Mg Tablet) 10 mg PO DAILY [facility] Last Admin: 02/22/25 08:53 Dose: 10 mg Fluticasone Propionate (Fluticasone Propionate Nasal 16 Gm [place]) 2 spray NOSTRIL-B BID [facility] Last Admin: 02/22/25 09:00 Dose: 2 spray Furosemide (Furosemide 20 Mg Tablet) 20 mg PO DAILY [facility]; Protocol Stop: 02/25/25 09:44 Last Admin: 02/22/25 08:53 Dose: 20 mg Gabapentin (Gabapentin 300 Mg Capsule) 300 mg PO TID [facility] Last Admin: 02/22/25 08:53 Dose: 300 mg Letrozole (Letrozole 2.5 Mg Tablet) 2.5 mg PO DAILY [facility] Last Admin: 02/22/25 08:54 Dose: 2.5 mg Lidocaine (Lidocaine 4 % Patch Adh..Patch) 1 patch TRANSDERMA DAILY PRN; Protocol PRN Reason: Knee pain Magnesium Hydroxide (Milk Of Magnesia 30 Ml Oral.Susp) 30 ml PO DAILY PRN PRN Reason: Constipation Last Admin: 02/21/25 17:18 Dose: 30 ml Mirabegron (Mirabegron 25 Mg Tab.Er.24h) 25 mg PO DAILY [facility] Last Admin: 02/22/25 08:54 Dose: 25 mg Nicotine (Nicotine 21 Mg Patch.Td24) 21 mg TRANSDERMA DAILY PRN PRN Reason: smoking cessation Nicotine Polacrilex (Nicotine Polacrilex 2 Mg Gum) 4 mg BUCCAL Q2H PRN PRN Reason: Nicotine Cravings Nystatin (Nystatin Powder 15 Gm Bottle) 1 appl TOPICAL BID [facility]; Protocol Last Admin: 02/22/25 09:00 Dose: 1 appl Olanzapine (Olanzapine 10 Mg Tablet) 10 mg PO BEDTIME [facility] Last Admin: 02/21/25 20:28 Dose: 10 mg Olanzapine (Olanzapine 5 Mg Tablet) 5 mg PO TID PRN PRN Reason: agitation/severe anxiety Last Admin: 02/22/25 01:02 Dose: 5 mg Omeprazole (Omeprazole 20 Mg Capsule.Dr) 20 mg PO DAILY@0630 [facility] Last Admin: 02/22/25 05:57 Dose: 20 mg Rivaroxaban (Rivaroxaban 10 Mg Tablet) 10 mg PO DAILY [facility] Last Admin: 02/22/25 08:51 Dose: 10 mg Senna/Docusate Sodium (Sennosides/Docusate Sodium Tablet) 1 tab PO BID [facility] Last Admin: 02/22/25 08:51 Dose: 1 tab Simethicone (Simethicone 80 Mg Tab.Chew) 80 mg PO QIDWMHS PRN PRN Reason: Gas Last Admin: 02/19/25 17:06 Dose: 80 mg Sumatriptan Succinate (Sumatriptan Succinate 50 Mg Tablet) 50 mg PO DAILY MRX1 PRN PRN Reason: Migraine Headache Last Admin: 02/18/25 23:15 Dose: 50 mg Tramadol HCl (Tramadol Hcl 50 Mg Tablet) 50 mg PO TID PRN PRN Reason: Pain, Severe (Pain Scale 7-10) Last Admin: 02/22/25 01:04 Dose: 50 mg Trazodone HCl (Trazodone Hcl 50 Mg Tablet) 150 mg PO BEDTIME [facility] Last Admin: 02/21/25 20:27 Dose: 150 mg Trazodone HCl (Trazodone Hcl 50 Mg Tablet) 50 mg PO BEDTIME PRN PRN Reason: sleep Last Admin: 02/22/25 02:55 Dose: 50 mg Allergies Allergies Allergy/AdvReac Type Severity Reaction Status Date / Time morphine AdvReac Severe Rash Verified 02/12/25 04:00 codeine AdvReac Intermediate Rash Verified 02/12/25 04:01 theophylline AdvReac Intermediate Palpitation Verified 02/12/25 04:01 s thiothixene AdvReac Intermediate Unknown Verified 02/12/25 04:00 propoxyphene AdvReac Unknown Unknown Verified 02/12/25 03:59 Assessment & Plan Assessment & Plan (1) Schizoaffective disorder, bipolar type: Status: Acute Code(s): F25.0 - Schizoaffective disorder, bipolar type Plan Ms. De La Fuente is a 74 year-old woman who self presented to [facility] reporting increase depression and suicidal ideation with plan to cut her wrist with a razor. She reported suicidal thoughts in context of having pain related to migraine and fear that she may have HIV due to exposure more than 10 years ago. HIV test was non reactive. On the unit, pt presents somatically preoccupied with some degree of delusions such as when she reports feeling that tylenol is causing swelling of her brain which she then says turns into suicidal thoughts and urges to cut her wrist. She also reports hearing some voices and seeing images in white and black and sometimes commercials in her mind. She displays an asydentic thinking in that causal link between ideas is not related or is less logically connected. On the surface, may not seem as overt delusional process given that most of her concerns related to suicidal thoughts are somatic but as one follows her train of thought is more clear the disconnect. Pending collateral information from sister and outpatient providers. She does have resting tremor, suspect more susceptible to movement disorder side effects, especially with high potency antipsychotics. She is currently on olanzapine 10mg po qhs. We did discuss trial of rexulti 1mg po daily which patient was in agreement to try. We also discussed adding low dose diazepam 2mg po TID. PLAN 02/14 continue depakote 1000mg po BID. continue rexulti 1mg po daily, continue olanzapine, may switch to rexulti if effective. 02/15 continue tx 02/16 continue tx. 02/17 increase oxygenation need, seen by hospitalist, no infection nor exacerbation of COPD. monitor ammonia, continues to be elevated higher today at 68. scheduled lactulose. continue to monitor, suspect this is related to depakote. may consider changing to carbamazepine. 02/18 lower depakote to 500mg po daily, start carbamazepine 200mg po BID, increase lactulose to 20mg TID. monitor ammonia. Pt reported leg swelling but none noted on exam. no pitting edema. No SI/HI. 02/19 continue tx. repeat ammonia levels. 02/20 ammonia level, wnl. continue carbamazepine, d/c depakote. 02/21: continue current management and treatment plan. 02/22: FU H&H. Consult GI for [facility]. Primary team to decide on streamlining antipsychotics and whether to restart Seroquel as patient already on 2 antipsychotics. Reason for continued inpatient stay Substantial Risk for: inability to function, rapid decompensation and med/psych decompensation Time Spent With Patient Time: Total time managing care of this patient today ____ minutes.
--- NOTE | 2025-02-22 14:28 | PM.EVENT ---
Event Note Date of Service: 02/22/25 Event Note: 74-year-old woman admitted to [facility]. RN noted bright red blood in the stool. Patient reported that she has had for the last 2-3 days and was unsure if it was related to hemorrhoids or the medications she was on. Her H&H dropped from 02/17/25>13.2/39.2 to 11.7/33.9. Patient denied any nausea, vomiting, diarrhea, abdominal pain, fever, chills, poor appetite. Alert and oriented Lungs normal expansion Positive bowel sounds, not tender No edema Bright red blood per rectum, unspecified Unknown if hemorrhoidal or secondary to Eliquis No need for stool occult as noted bright red blood per rectum GI consultation Repeat H&H in the morning Time Spent With Patient Time: Total time managing care of this patient today ____ minutes.
[2025-02-22] MEDS: Capsaicin 0.025% Cream 60 GM TUBE 1 APPL TOPICAL (14:51)
[2025-02-22 20:00] VITALS: BP 130/67; PULSE 69; RESP 18; TEMP 36.6; O2SAT 94
[2025-02-22] MEDS: traZODone HCL 50 MG TABLET 150 MG PO (20:37)
[2025-02-22] MEDS: OLANZapine 10 MG TABLET PO (20:37)
[2025-02-22] MEDS: Magnesium Hydrox/Alum Hydrox 30 ML ORAL.SUSP PO (21:36)
[2025-02-23] MEDS: traMADoL HCL 50 MG TABLET PO (04:35)
[2025-02-23] MEDS: Omeprazole 20 MG CAPSULE.DR PO (04:40)
[2025-02-23 07:49] LABS: Hematocrit 35.8 % (37.0-47.0); Hemoglobin 12.1 g/dl (12.0-16.0)
[2025-02-23 08:00] VITALS: BP 118/78; PULSE 66; RESP 18; TEMP 36.4; O2SAT 94
[2025-02-23 08:04] LABS: Anion Gap 14 (12-20); Blood Urea Nitrogen 14 mg/dL (9-16); Calcium 9.5 mg/dL (8.4-10.2); Carbon Dioxide 29 mmol/L (22-29); Chloride 96 mmol/L (96-108); Creatinine Clr Calc Pharmacy 85.4; Estimated Glomerular Filt Rate > 60; Glucose Random 87 mg/dL (60-115); Potassium 4.2 mmol/L (3.3-5.1); Sodium 135 mmol/L (135-145)
[2025-02-23] MEDS: Mirabegron 25 MG TAB.ER.24H PO (08:14)
[2025-02-23] MEDS: carBAMazepine 200 MG TABLET PO (08:14)
[2025-02-23] MEDS: Escitalopram Oxalate 10 MG TABLET PO (08:15)
[2025-02-23] MEDS: diazePAM 2 MG TABLET 1 MG PO (08:15)
[2025-02-23] MEDS: busPIRone HCl 5 MG TABLET 15 MG PO (08:16)
[2025-02-23] MEDS: Sennosides/Docusate Sodium TABLET 1 TAB PO (08:16)
[2025-02-23 08:17] VITALS: BP 118/78
[2025-02-23] MEDS: Brexpiprazole 2 MG TABLET PO (08:17)
[2025-02-23] MEDS: Furosemide 20 MG TABLET PO (08:17)
[2025-02-23] MEDS: Gabapentin 300 MG CAPSULE PO (08:17)
[2025-02-23] MEDS: Rivaroxaban 10 MG TABLET PO (08:17)
[2025-02-23] MEDS: Letrozole 2.5 MG TABLET PO (08:18)
[2025-02-23] MEDS: amLODIPine Besylate 5 MG TABLET PO (08:18)
[2025-02-23] MEDS: Atorvastatin Calcium 40 MG TABLET PO (08:19)
[2025-02-23] MEDS: Divalproex Sodium 500 MG TABLET.DR PO (08:19)
[2025-02-23] MEDS: Nystatin Powder 15 GM BOTTLE 1 APPL TOPICAL (08:21)
[2025-02-23] MEDS: Fluticasone Propionate Nasal 16 GM SPRAY 2 SPRAY NOSTRIL-B (08:21)
--- NOTE | 2025-02-23 09:00 | PM.GICN ---
History of Present Illness Data of Consult Service Date: 02/23/25 Requesting physician: Antonina Mendez Primary Care Provider: Unknown Physician HPI Reason for consult: rectal bleeding PMFSH Past Medical History Medical History (Updated 02/17/25 @ 13:16 by JOAQUIM Goldberg) Chronic respiratory failure Hypothyroidism COPD (chronic obstructive pulmonary disease) Dementia Breast cancer Social History Social History Household Members: None Housing: [facility] Do you presently have visiting nurse or other home services: No Comment: 5-min safety checks Patient Tobacco Use Status: Former Tobacco user Tobacco use type: Cigarette Smoked in Last 30 Days: No Use of substances other than those prescribed or required for medical reasons: No Currently Displaying Signs/Symptoms of Drug Intoxication Withdrawal: No Have you been hit, kicked, punched, or otherwise hurt by someone within the past year? If so, by whom?: No Do you feel safe in your current relationship?: No Current Relationship Advance Directives: No Advance Directives Information Provided: Yes Do you have thoughts of harming others: None Do you have a plan to hurt others: No Plan Recently lost weight without trying: Unsure Nutrition Risks: No Nutritional Risk Patient : No : No service: No Sexual orientation: Straight/Heterosexual Meds Allergies Allergy/AdvReac Type Severity Reaction Status Date / Time morphine AdvReac Severe Rash Verified 02/12/25 04:00 codeine AdvReac Intermediate Rash Verified 02/12/25 04:01 theophylline AdvReac Intermediate Palpitation Verified 02/12/25 04:01 s thiothixene AdvReac Intermediate Unknown Verified 02/12/25 04:00 propoxyphene AdvReac Unknown Unknown Verified 02/12/25 03:59 Active Medications: Current Medications Acetaminophen (Acetaminophen 325 Mg Tablet) 650 mg PO Q6H PRN PRN Reason: Headache/Pain, Scale 1-10 Last Admin: 02/12/25 06:14 Dose: 650 mg Al Hydroxide/Mg Hydroxide (Magnesium Hydrox/Alum Hydrox 30 Ml Oral.Susp) 30 ml PO Q6H PRN PRN Reason: Heartburn/Nausea Last Admin: 02/22/25 21:36 Dose: 30 ml Albuterol Sulfate (Albuterol Sulfate 90 Mcg 8 Gm Inhaler) 2 puff INHALE Q4H PRN PRN Reason: Shortness Of Breath Or Wheezing Last Admin: 02/17/25 08:27 Dose: 2 puff Amlodipine Besylate (Amlodipine Besylate 5 Mg Tablet) 5 mg PO DAILY [facility]; Protocol Last Admin: 02/23/25 08:18 Dose: 5 mg Atorvastatin Calcium (Atorvastatin Calcium 40 Mg Tablet) 40 mg PO DAILY [facility] Last Admin: 02/23/25 08:19 Dose: 40 mg Brexpiprazole (Brexpiprazole 2 Mg Tablet) 2 mg PO DAILY [facility] Last Admin: 02/23/25 08:17 Dose: 2 mg Buspirone HCl (Buspirone Hcl 5 Mg Tablet) 15 mg PO TID [facility] Last Admin: 02/23/25 08:16 Dose: 15 mg Capsaicin (Capsaicin 0.025% Cream 60 Gm Tube) 1 appl TOPICAL QID PRN; Protocol PRN Reason: knee pain Last Admin: 02/22/25 14:51 Dose: 1 appl Carbamazepine (Carbamazepine 200 Mg Tablet) 200 mg PO BID [facility] Last Admin: 02/23/25 08:14 Dose: 200 mg Celecoxib (Celecoxib 100 Mg Capsule) 100 mg PO BID [facility] Last Admin: 02/22/25 20:38 Dose: 100 mg Diazepam (Diazepam 2 Mg Tablet) 1 mg PO TID [facility] Last Admin: 02/23/25 08:15 Dose: 1 mg Divalproex Sodium (Divalproex Sodium 500 Mg Tablet.Dr) 500 mg PO DAILY [facility] Last Admin: 02/23/25 08:19 Dose: 500 mg Escitalopram Oxalate (Escitalopram Oxalate 10 Mg Tablet) 10 mg PO DAILY [facility] Last Admin: 02/23/25 08:15 Dose: 10 mg Fluticasone Propionate (Fluticasone Propionate Nasal 16 Gm [place]) 2 spray NOSTRIL-B BID [facility] Last Admin: 02/23/25 08:21 Dose: 2 spray Furosemide (Furosemide 20 Mg Tablet) 20 mg PO DAILY [facility]; Protocol Stop: 02/25/25 09:44 Last Admin: 02/23/25 08:17 Dose: 20 mg Gabapentin (Gabapentin 300 Mg Capsule) 300 mg PO TID [facility] Last Admin: 02/23/25 08:17 Dose: 300 mg Letrozole (Letrozole 2.5 Mg Tablet) 2.5 mg PO DAILY [facility] Last Admin: 02/23/25 08:18 Dose: 2.5 mg Lidocaine (Lidocaine 4 % Patch Adh..Patch) 1 patch TRANSDERMA DAILY [facility]; Protocol PRN Reason: Knee pain Magnesium Hydroxide (Milk Of Magnesia 30 Ml Oral.Susp) 30 ml PO DAILY PRN PRN Reason: Constipation Last Admin: 02/21/25 17:18 Dose: 30 ml Mirabegron (Mirabegron 25 Mg Tab.Er.24h) 25 mg PO DAILY [facility] Last Admin: 02/23/25 08:14 Dose: 25 mg Nicotine (Nicotine 21 Mg Patch.Td24) 21 mg TRANSDERMA DAILY PRN PRN Reason: smoking cessation Nicotine Polacrilex (Nicotine Polacrilex 2 Mg Gum) 4 mg BUCCAL Q2H PRN PRN Reason: Nicotine Cravings Nystatin (Nystatin Powder 15 Gm Bottle) 1 appl TOPICAL BID [facility]; Protocol Last Admin: 02/23/25 08:21 Dose: 1 appl Olanzapine (Olanzapine 10 Mg Tablet) 10 mg PO BEDTIME [facility] Last Admin: 02/22/25 20:37 Dose: 10 mg Olanzapine (Olanzapine 5 Mg Tablet) 5 mg PO TID PRN PRN Reason: agitation/severe anxiety Last Admin: 02/22/25 21:35 Dose: 5 mg Omeprazole (Omeprazole 20 Mg Capsule.Dr) 20 mg PO DAILY@0630 [facility] Last Admin: 02/23/25 04:40 Dose: 20 mg Rivaroxaban (Rivaroxaban 10 Mg Tablet) 10 mg PO DAILY [facility] Last Admin: 02/23/25 08:17 Dose: 10 mg Senna/Docusate Sodium (Sennosides/Docusate Sodium Tablet) 1 tab PO BID [facility] Last Admin: 02/23/25 08:16 Dose: 1 tab Simethicone (Simethicone 80 Mg Tab.Chew) 80 mg PO QIDWMHS PRN PRN Reason: Gas Last Admin: 02/19/25 17:06 Dose: 80 mg Sumatriptan Succinate (Sumatriptan Succinate 50 Mg Tablet) 50 mg PO DAILY MRX1 PRN PRN Reason: Migraine Headache Last Admin: 02/18/25 23:15 Dose: 50 mg Tramadol HCl (Tramadol Hcl 50 Mg Tablet) 50 mg PO TID PRN PRN Reason: Pain, Severe (Pain Scale 7-10) Last Admin: 02/23/25 04:35 Dose: 50 mg Trazodone HCl (Trazodone Hcl 50 Mg Tablet) 150 mg PO BEDTIME [facility] Last Admin: 02/22/25 20:37 Dose: 150 mg Trazodone HCl (Trazodone Hcl 50 Mg Tablet) 50 mg PO BEDTIME PRN PRN Reason: sleep Last Admin: 02/22/25 02:55 Dose: 50 mg Home Medications ?Medication ?Instructions ?Recorded ?Confirmed ?Last Taken ?Type albuterol sulfate 90 mcg/actuation 2 puff inhalation Q4H PRN 02/12/25 02/12/25 Unknown History aerosol inhaler (Ventolin HFA) Shortness Of Breath Or Wheezing atorvastatin 40 mg tablet 40 mg PO DAILY 02/12/25 02/12/25 Unknown History buspirone 15 mg tablet 15 mg PO TID 02/12/25 02/12/25 Unknown History celecoxib 100 mg capsule 100 mg PO BID 02/12/25 02/12/25 Unknown History divalproex 500 mg tablet,delayed 500 mg PO BID 02/12/25 02/12/25 Unknown History release escitalopram oxalate 10 mg tablet 10 mg PO DAILY 02/12/25 02/12/25 Unknown History fluticasone propionate 50 2 spray intranasal BID 02/12/25 02/12/25 Unknown History mcg/actuation nasal spray,suspension gabapentin 300 mg capsule 300 mg PO TID 02/12/25 02/12/25 Unknown History letrozole 2.5 mg tablet 2.5 mg PO DAILY 02/12/25 02/12/25 Unknown History levothyroxine 50 mcg tablet 50 mcg PO DAILY 02/12/25 02/12/25 Unknown History mirabegron 25 mg tablet,extended 25 mg PO DAILY 02/12/25 02/12/25 Unknown History release 24 hr (Myrbetriq) olanzapine 10 mg tablet 10 mg PO BEDTIME 02/12/25 02/12/25 Unknown History pantoprazole 40 mg tablet,delayed 40 mg PO DAILY 02/12/25 02/12/25 Unknown History release pramipexole 0.125 mg tablet 0.125 mg PO DAILY 02/12/25 02/12/25 Unknown History quetiapine 25 mg tablet 50 mg PO TID PRN Anxiety 02/12/25 02/12/25 Unknown History rivaroxaban 10 mg tablet (Xarelto) 10 mg PO DAILY 02/12/25 02/12/25 Unknown History trazodone 100 mg tablet 200 mg PO BEDTIME PRN Insomnia 02/12/25 02/12/25 Unknown History Physical Exam Vital Signs: Vital Signs: Last Vital Signs Temp 97.8 F 02/22/25 20:00 Pulse 69 02/22/25 20:00 Resp 18 02/22/25 20:00 BP 118/78 02/23/25 08:17 Pulse Ox 94 02/22/25 20:00 O2 Del Method Nasal Cannula 02/22/25 20:00 O2 Flow Rate 2 02/22/25 20:00 BMI result Body Mass Index 30.3 Results Labs 02/23/25 07:41 02/23/25 07:41 Labs: Short CBC 02/22/25 02/23/25 Range/Units 12:48 07:41 WBC 5.5 (4.8-10.8) X10*3/uL Hgb 11.7 L 12.1 (12.0-16.0) g/dl Hct 33.9 L 35.8 L (37.0-47.0) % Plt Count 186 (160-400) X10*3/uL BMP 02/23/25 07:41 Sodium 135 Potassium 4.2 Chloride 96 Carbon Dioxide 29 BUN 14 Creatinine 0.60 Calcium 9.5 Procedures Date of Service Date of Service: 02/23/25
--- NOTE | 2025-02-23 10:02 | PM.PSYDC ---
DS: Providers Provider Date of Service: 02/23/25 Date of admission: 02/12/25 03:56 Date of discharge: 02/23/25 Primary care physician: Unknown Physician Consults: 02/11/25 22:27 Consult to Hospitalist Routine Comment: Consulting Provider: [facility] Reason For Exam: admission physical 02/17/25 09:17 Consult to Hospitalist Routine Comment: Consulting Provider: [facility] Reason For Exam: desat to upper 80's, on oxygen now 02/19/25 17:36 Consult to Hospitalist Routine Comment: extending to knee, warm to touch, tight appearing Consulting Provider: [facility] Reason For Exam: RN reports new onset BL edema, ankles, 02/22/25 12:27 Consult to Hospitalist Routine Comment: Consulting Provider: [facility] Reason For Exam: Red blood per rectum 02/22/25 14:28 Consult to Gastroenterology Routine Consulting Provider: Geeta Mireles Reason for consultation: rectal bleeding Discharging clinician: Alexus Hayes DS: Diagnosis Discharge Diagnosis (1) Schizoaffective disorder, bipolar type: Status: Acute DS: Medications Discharge Medications Home Medications: Home Medications ?Medication ?Instructions ?Recorded ?Confirmed albuterol sulfate 90 mcg/actuation 2 puff inhalation Q4H PRN 02/12/25 02/12/25 aerosol inhaler (Ventolin HFA) Shortness Of Breath Or Wheezing atorvastatin 40 mg tablet 40 mg PO DAILY 02/12/25 02/12/25 buspirone 15 mg tablet 15 mg PO TID 02/12/25 02/12/25 celecoxib 100 mg capsule 100 mg PO BID 02/12/25 02/12/25 escitalopram oxalate 10 mg tablet 10 mg PO DAILY 02/12/25 02/12/25 fluticasone propionate 50 2 spray intranasal BID 02/12/25 02/12/25 mcg/actuation nasal spray,suspension gabapentin 300 mg capsule 300 mg PO TID 02/12/25 02/12/25 letrozole 2.5 mg tablet 2.5 mg PO DAILY 02/12/25 02/12/25 levothyroxine 50 mcg tablet 50 mcg PO DAILY 02/12/25 02/12/25 mirabegron 25 mg tablet,extended 25 mg PO DAILY 02/12/25 02/12/25 release 24 hr (Myrbetriq) olanzapine 10 mg tablet 10 mg PO BEDTIME 02/12/25 02/12/25 pantoprazole 40 mg tablet,delayed 40 mg PO DAILY 02/12/25 02/12/25 release rivaroxaban 10 mg tablet (Xarelto) 10 mg PO DAILY 02/12/25 02/12/25 Previous Rx's ?Medication ?Instructions ?Recorded amlodipine 5 mg tablet 5 mg PO DAILY #0 tabs 02/23/25 brexpiprazole 2 mg tablet (Rexulti) 2 mg PO DAILY #0 tabs 02/23/25 capsaicin 0.025 % topical cream 1 appl topical QID PRN knee pain 02/23/25 #0 grams carbamazepine 200 mg tablet 200 mg PO BID #0 tabs 02/23/25 diazepam 2 mg tablet 1 mg (1/2 x 2 mg) PO TID #45 tabs 02/23/25 furosemide 20 mg tablet 20 mg PO DAILY #0 tabs 02/23/25 lidocaine 4 % topical patch 1 patch transdermal DAILY PRN Knee 02/23/25 (Lidocaine Pain Relief) pain #0 ea nystatin 100,000 unit/gram topical 1 appl topical BID #0 grams 02/23/25 powder (Nyamyc) sennosides 8.6 mg-docusate sodium 1 tab PO BID #0 tabs 02/23/25 50 mg tablet (Senna Plus) simethicone 80 mg chewable tablet 80 mg PO QIDWMHS PRN Gas #0 tabs 02/23/25 (Gas Relief (simethicone)) sumatriptan succinate 50 mg tablet 50 mg PO DAILY MRX1 PRN Migraine 02/23/25 Headache #7 tabs trazodone 50 mg tablet 150 mg (3 x 50 mg) PO BEDTIME #0 02/23/25 tabs Mental Status Exam Mental Status Exam Narrative: Appearance: wearing hospital gown, fair hygiene, in NAD Behavior: cooperative, friendly Psychomotor: resting tremors, more pronounced on right side Speech: clear, normal rate/rhythm/volume, spontaneous TP: somewhat disorganized at times TC: focused on pain and this causing suicidal thought Mood: anxious Affect: calmer, but somatically preoccupied SI: passive HI: none VH/AH: appears internally preoccupied Delusions: she is not fully forthcoming with extend of delusional content, but suspect a combination of somatic delusions triggering changes in mood and suicidality. Insight/judgment: impaired x 2. Memory/cog: alert, oriented to place, month, year and situation. Data Data Completed and Pending Completed studies during hospitalization [Text1]: 02/16/25 02/17/25 02/17/25 12:25 09:16 09:25 WBC 6.1 RBC 4.27 Hgb 13.2 Hct 39.2 MCV 91.8 MCH 30.9 MCHC 33.7 RDW 12.9 Plt Count 228 MPV 9.7 Immature Gran % (Auto) 0.3 Neut % (Auto) 56.2 Lymph % (Auto) 30.1 [place] % (Auto) 8.7 Eos % (Auto) 4.2 H Baso % (Auto) 0.5 Lymph # (Auto) 1.8 [place] # (Auto) 0.5 Eos # (Auto) 0.3 Baso # (Auto) 0.0 Abs Immat Gran (auto) 0.02 Absolute Neuts (auto) 3.4 Absolute Nucleated RBC 0.000 Nucleated RBC % (auto) 0.0 D-Dimer High Sensitivty 211 Sodium 140 Potassium 3.9 Chloride 104 Carbon Dioxide 27 Anion Gap 13 BUN 15 Creatinine 0.87 Estim Creat Clear Calc 57.2 Estimated GFR > 60 Random Glucose 115 Calcium 9.7 D Total Bilirubin 0.2 AST 24 ALT 18 Alkaline Phosphatase 69 Ammonia 59 H Total Protein 6.4 L Albumin 4.1 Respiratory Panel Silva See Note Adenovirus (Rapid PCR) Not Detected B.pert (TEM-PCR) Not Detected B.parapertussis DNA PCR Not Detected C. pneumoniae DNA (PCR) Not Detected Coronavirus OC43 (PCR) Not Detected Coronavirus HKU1 (PCR) Not Detected Coronavirus 229E (PCR) Not Detected Coronavirus NL63 (PCR) Not Detected Human Metapneumovir PCR Not Detected Influenza A (RT-PCR) Not Detected Influenza A (H1) PCR Not Detected Influ A (H1/09) PCR Not Detected Influenza A (H3) PCR Not Detected Influenza B (RT-PCR) Not Detected M. pneumoniae (PCR) Not Detected Parainfluenza 1 (PCR) Not Detected Parainfluenza 2 (PCR) Not Detected Parainfluenza 3 (PCR) Not Detected Parainfluenza 4 (PCR) Not Detected RSV (PCR) Not Detected Entero/Rhino (PCR) Not Detected SARS-CoV-2 RNA (RT-PCR) Not Detected 02/17/25 02/18/25 02/19/25 11:38 11:38 08:49 WBC RBC Hgb Hct MCV MCH MCHC RDW Plt Count MPV Immature Gran % (Auto) Neut % (Auto) Lymph % (Auto) [place] % (Auto) Eos % (Auto) Baso % (Auto) Lymph # (Auto) [place] # (Auto) Eos # (Auto) Baso # (Auto) Abs Immat Gran (auto) Absolute Neuts (auto) Absolute Nucleated RBC Nucleated RBC % (auto) D-Dimer High Sensitivty Sodium Potassium Chloride Carbon Dioxide Anion Gap BUN Creatinine Estim Creat Clear Calc Estimated GFR Random Glucose Calcium Total Bilirubin AST ALT Alkaline Phosphatase Ammonia 68 H 59 H 47 Total Protein Albumin Respiratory Panel Silva Adenovirus (Rapid PCR) B.pert (TEM-PCR) B.parapertussis DNA PCR C. pneumoniae DNA (PCR) Coronavirus OC43 (PCR) Coronavirus HKU1 (PCR) Coronavirus 229E (PCR) Coronavirus NL63 (PCR) Human Metapneumovir PCR Influenza A (RT-PCR) Influenza A (H1) PCR Influ A (H1/09) PCR Influenza A (H3) PCR Influenza B (RT-PCR) M. pneumoniae (PCR) Parainfluenza 1 (PCR) Parainfluenza 2 (PCR) Parainfluenza 3 (PCR) Parainfluenza 4 (PCR) RSV (PCR) Entero/Rhino (PCR) SARS-CoV-2 RNA (RT-PCR) 02/22/25 02/23/25 12:48 07:41 WBC 5.5 RBC 3.73 L Hgb 11.7 L 12.1 Hct 33.9 L 35.8 L MCV 90.9 MCH 31.4 MCHC 34.5 RDW 12.7 Plt Count 186 MPV 9.4 Immature Gran % (Auto) Neut % (Auto) Lymph % (Auto) [place] % (Auto) Eos % (Auto) Baso % (Auto) Lymph # (Auto) [place] # (Auto) Eos # (Auto) Baso # (Auto) Abs Immat Gran (auto) Absolute Neuts (auto) Absolute Nucleated RBC 0.000 Nucleated RBC % (auto) 0.0 D-Dimer High Sensitivty Sodium 135 Potassium 4.2 Chloride 96 Carbon Dioxide 29 Anion Gap 14 BUN 14 Creatinine 0.60 Estim Creat Clear Calc 85.4 Estimated GFR > 60 Random Glucose 87 Calcium 9.5 Total Bilirubin AST ALT Alkaline Phosphatase Ammonia Total Protein Albumin Respiratory Panel Silva Adenovirus (Rapid PCR) B.pert (TEM-PCR) B.parapertussis DNA PCR C. pneumoniae DNA (PCR) Coronavirus OC43 (PCR) Coronavirus HKU1 (PCR) Coronavirus 229E (PCR) Coronavirus NL63 (PCR) Human Metapneumovir PCR Influenza A (RT-PCR) Influenza A (H1) PCR Influ A (H1/) PCR Influenza A (H3) PCR Influenza B (RT-PCR) M. pneumoniae (PCR) Parainfluenza 1 (PCR) Parainfluenza 2 (PCR) Parainfluenza 3 (PCR) Parainfluenza 4 (PCR) RSV (PCR) Entero/Rhino (PCR) SARS-CoV-2 RNA (RT-PCR) Imaging Diagnostic Imaging Impressions Chest X-Ray 02/17/25 09:00 IMPRESSION: There is bibasilar atelectasis. No acute process seen. Electronically signed by: Noah Greene MD 02/17/2025 09:34 AM EDT RP DS: Summary Hospital Course Hospital Course: Subjective Notes: Payan Warning and Conditional Voluntary Narrative: Ms. 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 In the ED, pt had reported triggers for suicidal thought migraine pain and fear that she may have HIV. She had HIV test while in the ED which was non reactive. She has hx of self harm via cutting her wrist. Pertinent labs completed in the ED include CBC without leukocytosis, CMP without electrolytes abnormalities, BUN 12, Cr 0.62. UA negative for UTI. Utox was negative. Head CT from 05/2024 showed microvascular changes and atrophy. On the unit, pt presents with multiple somatic concerns. She reports she has migraines and this causes her to feel suicidal. She also reports she does hear sometimes a voice of a male that tells her to cut her wrist. She Also says she has these thoughts when she gets overwhelmed. She states she is allergic to Tylenol that she feels this medication causes her brain to swell and then she becomes suicidal. She reports she has had suicidal thoughts on and off for several years. She does report most of these thoughts are related to pain or other somatic complaints. She also reports at times she sees visions of comercials in her head. She reported suicidal thoughts but denied any plan or intent to harm herself. She reported poor sleep. This commercial real estate underwriter saw scars of multiple cuts to her wrist on the left side. No other parts of her body with cutting. Past Psychiatric History: Inpt: some in the past but pt reports she does not remember where or when. OP: she reports is PCP prescribing psych medications, Korey Sweeney Past medication trials: buspar, lithium, depakote, navane, seroquel, olanzapine, cymbalta. Hx of multiple cuts to left wrist. Medical Evaluation Reviewed: Yes HOSPITAL COURSE On the unit, pt was admitted on a CV and placed on 15 minutes checks for safety. Pt reported hearing voices or having thoughts telling her to cut her wrist. She reported she thought these voices were a side effect of tylenol. She also presented with other delusions such as reporting Putin was observing her while she was in the bathroom, which she reported she liked. She denied seeing him but feeling his presence. She denied suicidal ideation throughout this admission. She denied VH/AH. She continued to have these delusions related to Putin was watching her on and off. She reported she was looking for a boyfriend and was hopeful Putin could be an option. In terms of psychiatric medications, we discussed starting rexulti which she tolerated well and was titrated to 2mg po daily. She was continued on olanzapine 10mg po qhs with plan to continue taper outpatient. She had been on depakote for mood stabilization but ammonia was high even with addition of lactulose, therefore we switched to carbamazepine which pt reported had been on with good effect. She was started on carbamazepine 200mg po BID. She has visible on the unit. She was social with select peers. No incidences of disruptive behaviors nor need for restraints. She was sleeping most of the night. She does take trazodone but suspect she also may need oxygen at night but she declined. She had a number of physical concerns including bilat knee pain- used lidocaine patch, capsaisin with limited effect. She had few doses of tramadol with moderate effect. She needs to follow up with PCP for knee pain. She was also on meloxican but had bright blood in stool. She is also on eliquis. Hgb did drop from 13.2 on 02/17/2025 to 11.7 on 02/22/25, back to 12.1 on 02/23. Meloxican has been stopped. She was seen by GI. Dr. Mireles. Pt also presented with desaturation, she us usually on 2L oxygen at home due to COPD. She had increased O2 need to up to 4L to maintain range between 90-93%, she had incentive spirometer and eventually went back down to 2L. She did not show signs of respiratory infection nor acute exacerbation of COPD per hospitalist. Status at Discharge Cognitive/behavioral status at discharge: Pt with brighter, no labile affect. No SI/HI. Less VH/AH. Less delusions. No aggression towards self or others. Sleeping fairly. Eating well. Functional status at discharge: uses cane/walker Overall status at discharge: patient is progressing back to baseline Time Spent with Patient Time attestation: Total time managing care of this patient today __35__ minutes. Time spent: Greater than 30 minutes Discharge Plan Discharge Anticipated Discharge Date/Time: 02/23/25 09:42 Patient Disposition: Home, Self-Care Discharge Diagnosis: schizoaffective disorder Referrals: Physician,Unknown J [Primary Care Provider] - 1 Week Discharge Medications: New amlodipine 5 mg Tablet 5 mg PO DAILY Qty: 0 0RF Protocol: Hold for SBP< HOLD for SBP < : 90 Rexulti 2 mg Tablet 2 mg PO DAILY Qty: 0 0RF carbamazepine 200 mg Tablet 200 mg PO BID Qty: 0 0RF diazepam 2 mg Tablet 1 mg PO TID Qty: 45 0RF trazodone 50 mg Tablet 150 mg PO BEDTIME Qty: 0 0RF sumatriptan succinate 50 mg Tablet 50 mg PO DAILY MRX1 PRN (Reason: Migraine Headache) Qty: 7 0RF lidocaine [Lidocaine Pain Relief] 4 % Adhesive Patch,Medicated 1 patch transdermal DAILY PRN (Reason: Knee pain) Qty: 0 0RF Protocol: Apply to: Apply to: Right knee sennosides-docusate sodium [Senna Plus] 8.6-50 mg Tablet 1 tab PO BID Qty: 0 0RF capsaicin 0.025 % Cream 1 appl topical QID PRN (Reason: knee pain) Qty: 0 0RF Protocol: Apply to: Apply to: knees furosemide 20 mg Tablet 20 mg PO DAILY Qty: 0 0RF Protocol: Hold for SBP< HOLD for SBP < : 90 nystatin [Nyamyc] 100,000 unit/gram Powder 1 appl topical BID Qty: 0 0RF Protocol: Apply to: Apply to: skin folds simethicone [Gas Relief (simethicone)] 80 mg Tablet,Chewable 80 mg PO QIDWMHS PRN (Reason: Gas) Qty: 0 0RF Continued olanzapine 10 mg tablet 10 mg PO BEDTIME levothyroxine 50 mcg tablet 50 mcg PO DAILY pantoprazole 40 mg tablet,delayed release (DR/EC) 40 mg PO DAILY gabapentin 300 mg capsule 300 mg PO TID letrozole 2.5 mg tablet 2.5 mg PO DAILY fluticasone propionate 50 mcg/actuation spray,suspension 2 spray intranasal BID escitalopram oxalate 10 mg tablet 10 mg PO DAILY Xarelto 10 mg tablet 10 mg PO DAILY mirabegron [Myrbetriq] 25 mg tablet extended release 24 hr 25 mg PO DAILY buspirone 15 mg tablet 15 mg PO TID atorvastatin 40 mg tablet 40 mg PO DAILY albuterol sulfate [Ventolin HFA] 90 mcg/actuation HFA aerosol inhaler 2 puff inhalation Q4H PRN (Reason: Shortness Of Breath Or Wheezing) Discontinued trazodone 100 mg tablet 200 mg PO BEDTIME PRN (Reason: Insomnia) pramipexole 0.125 mg tablet 0.125 mg PO DAILY celecoxib 100 mg capsule 100 mg PO BID divalproex 500 mg tablet,delayed release (DR/EC) 500 mg PO BID quetiapine 25 mg tablet 50 mg PO TID PRN (Reason: Anxiety) Discharge Orders: Discharge Order (Routine); Ordered 02/23/25 Ordered By: Alexus Hayes Diet: Advance to usual diet Activity on Discharge: As tolerated Stand Alone Forms: Patient Portal Discharge page, Community Support Print Language: Choose Not To Answer Care Plan Goals: 1. Maintain mood 2. No SI/HI Health Concerns: Follow up with PCP Plan of Treatment: 1. Take medications as prescribed 2. Go to nearest ED or call 911 in event of emergency Assessment: Pt with brighter, no labile affect. No SI/HI. No VH/AH. Residual delusions. No aggression towards self or others.
== END 2025-02-23 10:47 | disposition home or self-care (01) | DRG 885 ==
PROVIDERS: Psychiatry & Neurology Psychiatry; Social Worker; Student in an Organized Health Care Education/Training Program; Admitting Provider Psychiatry & Neurology Psychiatry; Visit Provider Psychiatry & Neurology Psychiatry
DX: F25.0 Schizoaffective disorder, bipolar type (principal); J96.21 Acute and chronic respiratory failure with hypoxia; J98.11 Atelectasis; I10 Essential (primary) hypertension; E78.5 Hyperlipidemia, unspecified; J44.9 Chronic obstructive pulmonary disease, unspecified; G89.29 Other chronic pain; E03.9 Hypothyroidism, unspecified; M54.9 Dorsalgia, unspecified; K21.9 Gastro-esophageal reflux disease without esophagitis; F03.90 Unspecified dementia, unspecified severity, without behavioral disturbance, psychotic disturbance, mood disturbance, and anxiety; F41.9 Anxiety disorder, unspecified; C50.919 Malignant neoplasm of unspecified site of unspecified female breast; Z79.811 Long term (current) use of aromatase inhibitors; Z99.81 Dependence on supplemental oxygen; Z20.822 Contact with and (suspected) exposure to COVID-19; Z87.891 Personal history of nicotine dependence; Z79.01 Long term (current) use of anticoagulants; Z79.51 Long term (current) use of inhaled steroids; Z79.890 Hormone replacement therapy; Z79.899 Other long term (current) drug therapy
CPT/HCPCS: 36415; 71045; 80048; 80053; 80061; 80164; 82140; 83036; 84439; 84443; 85014; 85018; 85025; 85027; 85379; 87633

== ENCOUNTER 2025-02-12 03:56 | Outpatient (BNV) | payer MEDICARE, MEDICAID, SELFPAY | END 2025-02-17 09:00 | PROVIDERS: Admitting Provider Psychiatry & Neurology Psychiatry; Visit Provider Radiology Diagnostic Radiology | DX: J98.11 Atelectasis (principal) | CPT/HCPCS: 71045 ==

== ENCOUNTER → 2025-02-12 03:56 | Outpatient (BNV) | payer MEDICARE, MEDICAID, SELFPAY | PROVIDERS: Admitting Provider Psychiatry & Neurology Psychiatry; Visit Provider Social Worker | DX: F25.0 Schizoaffective disorder, bipolar type (principal) | CPT/HCPCS: 90792; 99231; 99232; 99239 ==

== ENCOUNTER → 2025-02-12 03:56 | Outpatient (BNV) | payer MEDICARE, MEDICAID, SELFPAY | PROVIDERS: Admitting Provider Psychiatry & Neurology Psychiatry; Visit Provider Student in an Organized Health Care Education/Training Program | DX: I10 Essential (primary) hypertension (principal); J44.9 Chronic obstructive pulmonary disease, unspecified | CPT/HCPCS: 99221; 99222; 99499 ==